=== PATIENT | male | born 1935 | race African-American/Black ===

== ENCOUNTER 2018-09-22 10:22 | Inpatient (IN) | payer SELFPAY ==
[~2018-09-22] VITALS: Ht 193 cm; Wt 122.7 kg
[2018-09-22] MEDS ORDERED: ASPI-630 PO (10:47)
[2018-09-22] MEDS ORDERED: LOSA-73 PO (10:47)
--- NOTE | 2018-09-22 10:49 | PHYS DOC ---
Adult General Chief Complaint Chief Complaint: NEURO SYMPTOMS/DEFICITS HPI HPI Patient is a 83 year old male presented to ER today for evaluation of chest pain and left-sided numbness intermittently with dizziness for about 3 weeks. He went to see his doctor 2 weeks ago, found that he had high blood pressure, he was put on high blood pressure medication. He denies any history of coronary artery disease, no history high cholesterol, no history of diabetic. He said this morning he woke up with the same symptoms so he called his doctor who told to come here for evaluation. he denies any memory problem, no trouble talking, no blurry vision. Review of Systems Review of Systems Constitutional: Denies fever or chills [] Eyes: Denies change in visual acuity, redness, or eye pain [] HENT: Denies nasal congestion or sore throat [] Respiratory: Denies cough or shortness of breath [] Cardiovascular: No additional information not addressed in HPI [] GI: Denies abdominal pain, nausea, vomiting, bloody stools or diarrhea [] : Denies dysuria or hematuria [] Musculoskeletal: Denies back pain or joint pain [] Integument: Denies rash or skin lesions [] Neurologic: Denies headache, POSITIVE FOR LEFT SIDE NUMBNESS AND TINGLING SENSATION. Endocrine: Denies polyuria or polydipsia [] All other systems were reviewed and found to be within normal limits, except as documented in this note. Current Medications Current Medications Current Medications Medications (Trade) Dose Ordered Sig/Stacy Start Time Stop Time Status Last Admin Dose Admin Aspirin (Armand Aspirin) 325 mg 1X ONCE 09/22/18 12:45 09/22/18 12:47 DC 09/22/18 13:01 325 MG Allergies Allergies Allergies Coded Allergies Type Severity Reaction Last Updated Verified No Known Drug Allergies 09/22/18 No Physical Exam Physical Exam Constitutional: Well developed, well nourished, no acute distress, non-toxic appearance. [] HENT: Normocephalic, atraumatic, bilateral external ears normal, oropharynx moist, no oral exudates, nose normal. [] Eyes: PERRLA, EOMI, conjunctiva normal, no discharge. [] Neck: Normal range of motion, no tenderness, supple, no stridor. [] Cardiovascular:Heart rate regular rhythm, no murmur [] Lungs & Thorax: Bilateral breath sounds clear to auscultation [] Abdomen: Bowel sounds normal, soft, no tenderness, no masses, no pulsatile craig s. [] Skin: Warm, dry, no erythema, no rash. [] Back: No tenderness, no CVA tenderness. [] Extremities: No tenderness, no cyanosis, no clubbing, ROM intact, no edema. [] Neurologic: Alert and oriented X 3, normal motor function, normal sensory function, no focal deficits noted. [] Psychologic: Affect normal, judgement normal, mood normal. [] Current Patient Data Vital Signs Vital Signs Date Time Temp Pulse Resp B/P (MAP) Pulse Ox O2 Delivery O2 Flow Rate FiO2 09/22/18 12:05 61 20 09/22/18 11:35 98 09/22/18 10:37 98.2 182/89 (120) Room Air 98.2 Lab Values Laboratory Tests Test 09/22/18 10:58 09/22/18 11:26 09/22/18 12:20 White Blood Count 3.6 x10^3/uL (4.0-11.0) L Red Blood Count 6.24 x10^6/uL (4.30-5.70) H Hemoglobin 14.6 g/dL (13.0-17.5) Hematocrit 45.0 % (39.0-53.0) Mean Corpuscular Volume 72 fL (79-100) L Mean Corpuscular Hemoglobin 23 pg (25-35) L Mean Corpuscular Hemoglobin Concent 33 g/dL (31-37) Red Cell Distribution Width 15.0 % (11.5-14.5) H Platelet Count 69 x10^3/uL (140-400) L Neutrophils (%) (Auto) 47 % (31-73) Lymphocytes (%) (Auto) 40 % (24-48) Monocytes (%) (Auto) 11 % (0-9) H Eosinophils (%) (Auto) 2 % (0-3) Basophils (%) (Auto) 1 % (0-3) Neutrophils # (Auto) 1.7 x10^3uL (1.8-7.7) L Lymphocytes # (Auto) 1.4 x10^3/uL (1.0-4.8) Monocytes # (Auto) 0.4 x10^3/uL (0.0-1.1) Eosinophils # (Auto) 0.1 x10^3/uL (0.0-0.7) Basophils # (Auto) 0.0 x10^3/uL (0.0-0.2) Platelet Estimate Decreased (ADEQUATE) Large Platelets Present Anisocytosis Slight Creatine Kinase 381 U/L (39-308) H Creatine Kinase MB (Mass) 3.2 ng/mL (0.0-3.6) Creatine Kinase MB Relative Index 0.8 % (0-4) Troponin I Quantitative < 0.017 ng/mL (0.000-0.055) YR-Umq-B-Type Natriuretic Peptide 187 pg/mL (0-449) Prothrombin Time 13.5 SEC (11.7-14.0) Prothrombin Time INR 1.1 (0.8-1.1) PTT 31 SEC (24-38) Sodium Level 139 mmol/L (136-145) Potassium Level 4.6 mmol/L (3.5-5.1) Chloride Level 103 mmol/L (98-107) Carbon Dioxide Level 26 mmol/L (21-32) Anion Gap 10 (6-14) Blood Urea Nitrogen 16 mg/dL (8-26) Creatinine 1.1 mg/dL (0.7-1.3) Estimated GFR (Cockcroft-Gault) 77.7 BUN/Creatinine Ratio 15 (6-20) Glucose Level 115 mg/dL (70-99) H Calcium Level 8.8 mg/dL (8.5-10.1) Magnesium Level 2.3 mg/dL (1.8-2.4) Total Bilirubin 0.4 mg/dL (0.2-1.0) Aspartate Amino Transferase (AST) 34 U/L (15-37) Alanine Aminotransferase (ALT) 67 U/L (16-63) H Alkaline Phosphatase 87 U/L (46-116) Total Protein 7.8 g/dL (6.4-8.2) Albumin 4.0 g/dL (3.4-5.0) Albumin/Globulin Ratio 1.1 (1.0-1.7) Urine Collection Type Unknown Urine Color Yellow Urine Clarity Clear Urine pH 7.0 Urine Specific [place] 1.010 Urine Protein Negative mg/dL (NEG-TRACE) Urine Glucose (UA) Negative mg/dL (NEG) Urine Ketones (Stick) Negative mg/dL (NEG) Urine Blood Negative (NEG) Urine Nitrite Negative (NEG) Urine Bilirubin Negative (NEG) Urine Urobilinogen Dipstick 0.2 mg/dL (0.2 mg/dL) Urine Leukocyte Esterase Negative (NEG) Urine RBC Occ /HPF (0-2) Urine WBC Occ /HPF (0-4) Urine Bacteria 0 /HPF (0-FEW) Urine Mucus Slight /LPF Laboratory Tests 09/22/18 10:58 Laboratory Tests 09/22/18 11:26 EKG EKG EKG was read by this physician at 1042, rate of 70 bpm, no stemi. NSR.[] Radiology/Procedures Radiology/Procedures [][facility] [address] [place] [address] IMAGING REPORT Signed PATIENT: JOSE GOOD ACCOUNT: [id number] : 1935 LOCATION: ER AGE: 83 SEX: M EXAM STATUS: REG ER ORD. PHYSICIAN: MAYI GILBERT DO REASON: LEFT SIDE WEAKNESS PROCEDURE: CT HEAD WO CONTRAST EXAM: CT Head without IV contrast CLINICAL HISTORY: Left-sided weakness COMPARISON: None. TECHNIQUE: Routine CT of the head without contrast. Soft tissues and bone windows were reviewed. PQRS compliance statement - One or more of the following individualized dose reduction techniques were utilized for this study: 1. Automated exposure control 2. Adjustment of the mA and/or kV according to patient size 3. Use of iterative reconstruction technique FINDINGS: There is no evidence of hemorrhage, mass or extra-axial fluid collection. Subcortical and periventricular foci of hypoattenuation may be seen with chronic small vessel disease. There is no mass effect or shift of the intracranial structures. The ventricles, basilar cisterns and cortical sulci are normal in size and configuration for the patients age. The cerebellum and brainstem are unremarkable. The calvarium demonstrates no evidence of fracture or focal lesion. There is normal aeration of the visualized paranasal sinuses and mastoid air cells. The visualized portions of the orbits are normal. Atherosclerotic calcifications of the intracranial internal carotid and vertebral arteries is seen. IMPRESSION: 1. No evidence for acute intracranial process. 2. Changes of chronic small vessel disease. Electronically signed by: Ashutosh De Leon MD (09/22/2018 11:06 AM) [facility] DICTATED and SIGNED BY: ASHUTOSH DE LEON MD DATE: 09/22/18 1103 Course & Med Decision Making Course & Med Decision Making Pertinent Labs and Imaging studies reviewed. (See chart for details) [] Dragon Disclaimer Dragon Disclaimer This electronic medical record was generated, in whole or in part, using a voice recognition dictation system. Departure Departure Impression: Primary Impression: Chest pain Additional Impression: Numbness on left side Disposition: 09 ADMITTED INPATIENT Admitting Physician: Figueroa Kern Condition: STABLE Referrals: ALIX CHRISTIANSEN (PCP) Problem Qualifiers MAYI GILBERT DO September 22, 2018 10:49
--- NOTE | 2018-09-22 11:00 | EKG ---
[facility] [address] [place] [address] Test Date: 2018-09-22 Test Time: 10:39:46 Pat Name: JOSE GOOD Department: Room: Gender: M Sample Puller: : 1935 Requested By: MAYI GILBERT Order Number: [id number] Reading MD: Measurements Intervals [place] Rate: 70 P: 90 VT: 206 QRS: 40 QRSD: 100 T: 26 QT: 388 QTc: 422 Interpretive Statements SINUS RHYTHM NORMAL ECG RI6.01 Unconfirmed report No previous ECG available for comparison
--- NOTE | 2018-09-22 11:09 | RAD ---
EXAM: CT Head without IV contrast CLINICAL HISTORY: Left-sided weakness COMPARISON: None. TECHNIQUE: Routine CT of the head without contrast. Soft tissues and bone windows were reviewed. PQRS compliance statement - One or more of the following individualized dose reduction techniques were utilized for this study: 1. Automated exposure control 2. Adjustment of the mA and/or kV according to patient size 3. Use of iterative reconstruction technique FINDINGS: There is no evidence of hemorrhage, mass or extra-axial fluid collection. Subcortical and periventricular foci of hypoattenuation may be seen with chronic small vessel disease. There is no mass effect or shift of the intracranial structures. The ventricles, basilar cisterns and cortical sulci are normal in size and configuration for the patients age. The cerebellum and brainstem are unremarkable. The calvarium demonstrates no evidence of fracture or focal lesion. There is normal aeration of the visualized paranasal sinuses and mastoid air cells. The visualized portions of the orbits are normal. Atherosclerotic calcifications of the intracranial internal carotid and vertebral arteries is seen. IMPRESSION: 1. No evidence for acute intracranial process. 2. Changes of chronic small vessel disease. Electronically signed by: Ashutosh Hough MD (09/22/2018 11:06 AM) [facility] [place]
--- NOTE | 2018-09-22 11:14 | RAD ---
PORTABLE CHEST 1V History: Chest pain, left weakness for 2 weeks Comparison: None. Findings: Single view of the chest is submitted. There is atherosclerotic calcification near aortic arch. There is some mild hazy left base airspace opacity, minimally of the medial right lung base. There is no significant pleural fluid or pneumothorax. Cardiac silhouette is considered within normal limits given technique. There is widening of the acromiohumeral clavicular joints bilaterally. Impression: 1. There is some hazy bibasilar airspace opacity greater on the left may be due to edema or mild infiltrate. Electronically signed by: Iglesia Knox MD (09/22/2018 11:11 AM) [facility]
[2018-09-22 11:28] LABS: BASO % 1 % (0-3); EOS # 0.1 x10^3/uL (0.0-0.7); EOS % 2 % (0-3); HEMOGLOBIN 14.6 g/dL (13.0-17.5); LYMPH # 1.4 x10^3/uL (1.0-4.8); LYMPH % 40 % (24-48); MEAN CORPUSCULAR HEMOGLOBIN 23 pg (25-35); MEAN CORPUSCULAR HGB CONC 33 g/dL (31-37); MEAN CORPUSCULAR VOLUME 72 fL (79-100); MONO # 0.4 x10^3/uL (0.0-1.1); MONO % 11 % (0-9); NEUT # 1.7 x10^3uL (1.8-7.7); NEUT % 47 % (31-73); PLATELET COUNT 69 x10^3/uL (140-400); RED BLOOD COUNT 6.24 x10^6/uL (4.30-5.70); WHITE BLOOD COUNT 3.6 x10^3/uL (4.0-11.0)
[2018-09-22 11:51] LABS: PROTHROMBIN TIME PATIENT 13.5 SEC (11.7-14.0)
[2018-09-22 11:52] LABS: PLT ESTIMATE DECREASED (ADEQUATE)
[2018-09-22 11:53] LABS: ANISOCYTOSIS SLIGHT
[2018-09-22 11:57] LABS: CALCIUM 8.8 mg/dL (8.5-10.1); CREATININE 1.1 mg/dL (0.7-1.3); GFR 77.7; POTASSIUM 4.6 mmol/L (3.5-5.1)
[2018-09-22 12:03] LABS: ALBUMIN/GLOBULIN RATIO 1.1 (1.0-1.7); MAGNESIUM 2.3 mg/dL (1.8-2.4); TOTAL BILIRUBIN 0.4 mg/dL (0.2-1.0); TOTAL PROTEIN 7.8 g/dL (6.4-8.2)
[2018-09-22 12:29] LABS: BILIRUBIN,URINE NEGATIVE (NEG); CLARITY,URINE CLEAR; COLOR,URINE YELLOW; NITRITE,URINE NEGATIVE (NEG); PROTEIN,URINE NEGATIVE (NEG-TRACE); UROBILINOGEN,URINE 0.2 mg/dL (0.2 mg/dL)
[2018-09-22] MEDS ORDERED: ASPIRIN 325 MG TABLET PO ONE (12:45)
[2018-09-22 12:49] LABS: BACTERIA,URINE 0 /HPF (0-FEW); RBC,URINE OCC /HPF (0-2); WBC,URINE OCC /HPF (0-4)
--- NOTE | 2018-09-22 13:24 | PDOC1 ---
History and Physical Date of Admission Date of Admission DATE: 09/22/18 TIME: 13:24 Identification/Chief Complaint Chief Complaint seen in er 83 year old male presented to ER today for evaluation of chest pain and left-sided numbness intermittently with dizziness for about 3 weeks. He went to see his doctor 2 weeks ago, found that he had high blood pressure, he was put on high blood pressure medication. He denies any history of coronary artery disease, no history high cholesterol, no history of diabetic. He said this morning he woke up with the same symptoms Past Medical History Cardiovascular: HTN Family History Family History: Hypertension Social History Smoke: No ALCOHOL: none Drugs: None Current Problem List Problem List Problems Medical Problems: (1) Chest pain Status: Acute (2) Numbness on left side Status: Acute Current Medications Current Medications Current Medications Aspirin (Armand Aspirin) 325 mg 1X ONCE PO Last administered on 09/22/18at 13:01; Start 09/22/18 at 12:45; Stop 09/22/18 at 12:47; Status DC Active Scripts Active Reported Aspirin 81 Mg Tab.chew 1 Tab PO DAILY Losartan Potassium 50 Mg Tablet 50 Mg PO DAILY Allergies Allergies: Coded Allergies: No Known Drug Allergies (Unverified , 09/22/18) ROS Review of System Review of Systems Review of Systems Constitutional: Denies fever or chills [] Eyes: Denies change in visual acuity, redness, or eye pain [] HENT: Denies nasal congestion or sore throat [] Respiratory: Denies cough or shortness of breath [] Cardiovascular: No additional information not addressed in HPI [] GI: Denies abdominal pain, nausea, vomiting, bloody stools or diarrhea [] : Denies dysuria or hematuria [] Musculoskeletal: Denies back pain or joint pain [] Integument: Denies rash or skin lesions [] Neurologic: Denies headache, POSITIVE FOR LEFT SIDE NUMBNESS AND TINGLING SENSATION. Endocrine: Denies polyuria or polydipsia [] 14 pt systems were reviewed and found to be within normal limits, except as documented Physical Exam Physical Exam Physical Exam Physical Exam Constitutional: Well developed, well nourished, no acute distress, non-toxic appearance. [] HENT: Normocephalic, atraumatic, bilateral external ears normal, oropharynx moist, no oral exudates, nose normal. [] Eyes: PERRLA, EOMI, conjunctiva normal, no discharge. [] Neck: Normal range of motion, no tenderness, supple, no stridor. [] Cardiovascular:Heart rate regular rhythm, no murmur [] Lungs & Thorax: Bilateral breath sounds clear to auscultation [] Abdomen: Bowel sounds normal, soft, no tenderness, no masses, no pulsatile masses. [] Skin: Warm, dry, no erythema, no rash. [] Back: No tenderness, no CVA tenderness. [] Extremities: No tenderness, no cyanosis, no clubbing, ROM intact, no edema. [] Neurologic: Alert and oriented X 3, normal motor function, normal sensory function, no focal deficits noted. [] Psychologic: Affect normal, judgement normal, mood normal. [] General: Alert, Oriented X3, Cooperative Neuro: Normal speech, Cranial nerves 3-12 NL Psych/Mental Status: Mental status NL, Mood NL Vitals Vitals Vital Signs Date Time Temp Pulse Resp B/P (MAP) Pulse Ox O2 Delivery O2 Flow Rate FiO2 09/22/18 12:05 61 20 09/22/18 11:35 98 09/22/18 10:37 98.2 182/89 (120) Room Air 98.2 Labs Labs Laboratory Tests Test 09/22/18 10:58 09/22/18 11:26 09/22/18 12:20 White Blood Count 3.6 x10^3/uL (4.0-11.0) Red Blood Count 6.24 x10^6/uL (4.30-5.70) Hemoglobin 14.6 g/dL (13.0-17.5) Hematocrit 45.0 % (39.0-53.0) Mean Corpuscular Volume 72 fL (79-100) Mean Corpuscular Hemoglobin 23 pg (25-35) Mean Corpuscular Hemoglobin Concent 33 g/dL (31-37) Red Cell Distribution Width 15.0 % (11.5-14.5) Platelet Count 69 x10^3/uL (140-400) Neutrophils (%) (Auto) 47 % (31-73) Lymphocytes (%) (Auto) 40 % (24-48) Monocytes (%) (Auto) 11 % (0-9) Eosinophils (%) (Auto) 2 % (0-3) Basophils (%) (Auto) 1 % (0-3) Neutrophils # (Auto) 1.7 x10^3uL (1.8-7.7) Lymphocytes # (Auto) 1.4 x10^3/uL (1.0-4.8) Monocytes # (Auto) 0.4 x10^3/uL (0.0-1.1) Eosinophils # (Auto) 0.1 x10^3/uL (0.0-0.7) Basophils # (Auto) 0.0 x10^3/uL (0.0-0.2) Platelet Estimate Decreased (ADEQUATE) Large Platelets Present Anisocytosis Slight Creatine Kinase 381 U/L (39-308) Creatine Kinase MB (Mass) 3.2 ng/mL (0.0-3.6) Creatine Kinase MB Relative Index 0.8 % (0-4) Troponin I Quantitative < 0.017 ng/mL (0.000-0.055) WV-Gzg-N-Type Natriuretic Peptide 187 pg/mL (0-449) Prothrombin Time 13.5 SEC (11.7-14.0) Prothromb Time International Ratio 1.1 (0.8-1.1) Activated Partial Thromboplast Time 31 SEC (24-38) Sodium Level 139 mmol/L (136-145) Potassium Level 4.6 mmol/L (3.5-5.1) Chloride Level 103 mmol/L (98-107) Carbon Dioxide Level 26 mmol/L (21-32) Anion Gap 10 (6-14) Blood Urea Nitrogen 16 mg/dL (8-26) Creatinine 1.1 mg/dL (0.7-1.3) Estimated GFR (Cockcroft-Gault) 77.7 BUN/Creatinine Ratio 15 (6-20) Glucose Level 115 mg/dL (70-99) Calcium Level 8.8 mg/dL (8.5-10.1) Magnesium Level 2.3 mg/dL (1.8-2.4) Total Bilirubin 0.4 mg/dL (0.2-1.0) Aspartate Amino Transf (AST/SGOT) 34 U/L (15-37) Alanine Aminotransferase (ALT/SGPT) 67 U/L (16-63) Alkaline Phosphatase 87 U/L (46-116) Total Protein 7.8 g/dL (6.4-8.2) Albumin 4.0 g/dL (3.4-5.0) Albumin/Globulin Ratio 1.1 (1.0-1.7) Urine Collection Type Unknown Urine Color Yellow Urine Clarity Clear Urine pH 7.0 Urine Specific [place] 1.010 Urine Protein Negative mg/dL (NEG-TRACE) Urine Glucose (UA) Negative mg/dL (NEG) Urine Ketones (Stick) Negative mg/dL (NEG) Urine Blood Negative (NEG) Urine Nitrite Negative (NEG) Urine Bilirubin Negative (NEG) Urine Urobilinogen Dipstick 0.2 mg/dL (0.2 mg/dL) Urine Leukocyte Esterase Negative (NEG) Urine RBC Occ /HPF (0-2) Urine WBC Occ /HPF (0-4) Urine Bacteria 0 /HPF (0-FEW) Urine Mucus Slight /LPF Laboratory Tests Test 09/22/18 10:58 09/22/18 11:26 09/22/18 12:20 White Blood Count 3.6 x10^3/uL (4.0-11.0) Red Blood Count 6.24 x10^6/uL (4.30-5.70) Hemoglobin 14.6 g/dL (13.0-17.5) Hematocrit 45.0 % (39.0-53.0) Mean Corpuscular Volume 72 fL (79-100) Mean Corpuscular Hemoglobin 23 pg (25-35) Mean Corpuscular Hemoglobin Concent 33 g/dL (31-37) Red Cell Distribution Width 15.0 % (11.5-14.5) Platelet Count 69 x10^3/uL (140-400) Neutrophils (%) (Auto) 47 % (31-73) Lymphocytes (%) (Auto) 40 % (24-48) Monocytes (%) (Auto) 11 % (0-9) Eosinophils (%) (Auto) 2 % (0-3) Basophils (%) (Auto) 1 % (0-3) Neutrophils # (Auto) 1.7 x10^3uL (1.8-7.7) Lymphocytes # (Auto) 1.4 x10^3/uL (1.0-4.8) Monocytes # (Auto) 0.4 x10^3/uL (0.0-1.1) Eosinophils # (Auto) 0.1 x10^3/uL (0.0-0.7) Basophils # (Auto) 0.0 x10^3/uL (0.0-0.2) Platelet Estimate Decreased (ADEQUATE) Large Platelets Present Anisocytosis Slight Creatine Kinase 381 U/L (39-308) Creatine Kinase MB (Mass) 3.2 ng/mL (0.0-3.6) Creatine Kinase MB Relative Index 0.8 % (0-4) Troponin I Quantitative < 0.017 ng/mL (0.000-0.055) JK-Yzj-B-Type Natriuretic Peptide 187 pg/mL (0-449) Prothrombin Time 13.5 SEC (11.7-14.0) Prothromb Time International Ratio 1.1 (0.8-1.1) Activated Partial Thromboplast Time 31 SEC (24-38) Sodium Level 139 mmol/L (136-145) Potassium Level 4.6 mmol/L (3.5-5.1) Chloride Level 103 mmol/L (98-107) Carbon Dioxide Level 26 mmol/L (21-32) Anion Gap 10 (6-14) Blood Urea Nitrogen 16 mg/dL (8-26) Creatinine 1.1 mg/dL (0.7-1.3) Estimated GFR (Cockcroft-Gault) 77.7 BUN/Creatinine Ratio 15 (6-20) Glucose Level 115 mg/dL (70-99) Calcium Level 8.8 mg/dL (8.5-10.1) Magnesium Level 2.3 mg/dL (1.8-2.4) Total Bilirubin 0.4 mg/dL (0.2-1.0) Aspartate Amino Transf (AST/SGOT) 34 U/L (15-37) Alanine Aminotransferase (ALT/SGPT) 67 U/L (16-63) Alkaline Phosphatase 87 U/L (46-116) Total Protein 7.8 g/dL (6.4-8.2) Albumin 4.0 g/dL (3.4-5.0) Albumin/Globulin Ratio 1.1 (1.0-1.7) Urine Collection Type Unknown Urine Color Yellow Urine Clarity Clear Urine pH 7.0 Urine Specific [place] 1.010 Urine Protein Negative mg/dL (NEG-TRACE) Urine Glucose (UA) Negative mg/dL (NEG) Urine Ketones (Stick) Negative mg/dL (NEG) Urine Blood Negative (NEG) Urine Nitrite Negative (NEG) Urine Bilirubin Negative (NEG) Urine Urobilinogen Dipstick 0.2 mg/dL (0.2 mg/dL) Urine Leukocyte Esterase Negative (NEG) Urine RBC Occ /HPF (0-2) Urine WBC Occ /HPF (0-4) Urine Bacteria 0 /HPF (0-FEW) Urine Mucus Slight /LPF Images Images PORTABLE CHEST 1V History: Chest pain, left weakness for 2 weeks Comparison: None. Findings: Single view of the chest is submitted. There is atherosclerotic calcification near aortic arch. There is some mild hazy left base airspace opacity, minimally of the medial right lung base. There is no significant pleural fluid or pneumothorax. Cardiac silhouette is considered within normal limits given technique. There is widening of the acromiohumeral clavicular joints bilaterally. Impression: 1. There is some hazy bibasilar airspace opacity greater on the left may be due to edema or mild infiltrate. Electronically signed by: Iglesia Knox MD (09/22/2018 11:11 AM) [facility] CLINICAL HISTORY: Left-sided weakness COMPARISON: None. TECHNIQUE: Routine CT of the head without contrast. Soft tissues and bone windows were reviewed. PQRS compliance statement - One or more of the following individualized dose reduction techniques were utilized for this study: 1. Automated exposure control 2. Adjustment of the mA and/or kV according to patient size 3. Use of iterative reconstruction technique FINDINGS: There is no evidence of hemorrhage, mass or extra-axial fluid collection. Subcortical and periventricular foci of hypoattenuation may be seen with chronic small vessel disease. There is no mass effect or shift of the intracranial structures. The ventricles, basilar cisterns and cortical sulci are normal in size and configuration for the patients age. The cerebellum and brainstem are unremarkable. The calvarium demonstrates no evidence of fracture or focal lesion. There is normal aeration of the visualized paranasal sinuses and mastoid air cells. The visualized portions of the orbits are normal. Atherosclerotic calcifications of the intracranial internal carotid and vertebral arteries is seen. IMPRESSION: 1. No evidence for acute intracranial process. 2. Changes of chronic small vessel disease. Electronically signed by: Ashutosh Hough MD (09/22/2018 11:06 AM) [facility] VTE Prophylaxis Ordered VTE Prophylaxis Devices: Yes VTE Pharmacological Prophylaxi: Yes Assessment/Plan Assessment/Plan IMPRESSION: 1. No evidence for acute intracranial process. 2. Changes of chronic small vessel disease. 3. CHEST PAIN 4. Left sided weakness/ parasthesia 5. hazy bibasilar airspace opacity greater on the left may be due to edema or mild infiltrate. plan admit cvc bed cardiology consult neurology consult echo neurochecks q 4 hrs flp 57 min pt exam, chart review, > 50% of time spent with exam, chart review, pt care coordination PITA RICO MD September 22, 2018 13:24
[2018-09-22 14:52] VITALS: BP 188/93
--- NOTE | 2018-09-22 15:20 | PDOC2 ---
BRENNAN ELLER ACQUISITIONS EDITOR 09/22/18 1520: CARDIAC CONSULT DATE OF CONSULT Date of Consult DATE: 09/22/18 TIME: 15:17 REASON FOR CONSULT Reason for Consult: Chest pain REFERRING PHYSICIAN Referring Physician: Cedrick SOURCE Source: Chart review, Patient HISTORY OF PRESENT ILLNESS HISTORY OF PRESENT ILLNESS This is a pleasant 83 yo male admitted for complains of left side numbness and tingling. He has not seen a doctor for a very longtime. He was just recently started on losartan. In the last 2-3 weeks he has been having intermittent numbness and tingling to his left arm and left leg. Denies any chest pain but finally this morning he felt thumping discomfort to his left chest hemal only lasted for about 5 sec. No SOA, visual or auditory disturbances. He does stair climbing daily as his exercise does it fro about 20 minutes without CP or ESPINOZA. No associated nausea, dizziness with his left arm discomfort. No known hx of CAD, VTE or arrhythmias. No tobacco, ETOH nor any recreational drugs. Denies any leg pain with exercise nor back pain or leg swelling. PAST MEDICAL HISTORY Past Medical History HTN otherwise no pertinent history PAST SURGICAL HISTORY Past Surgical History: No pertinent history FAMILY HISTORY Family History noncontributory to CV SOCIAL HISTORY Smoke: No ALCOHOL: none Drugs: None Lives: Alone CURRENT MEDICATIONS CURRENT MEDICATIONS Current Medications Medications (Trade) Dose Ordered Sig/Stacy Route PRN Reason Start Time Stop Time Status Last Admin Dose Admin Aspirin (Armand Aspirin) 325 mg 1X ONCE PO 09/22/18 12:45 09/22/18 12:47 DC 09/22/18 13:01 ALLERGIES ALLERGIES: Coded Allergies: No Known Drug Allergies (Unverified , 09/22/18) ROS Review of System 14 point ROS evaluated with pertinent positives noted per HPI PHYSICAL EXAM General: Alert, Oriented X3, Cooperative, No acute distress HEENT: Atraumatic, Mucous membr. moist/pink Lungs: Clear to auscultation, Normal air movement Heart: Regular rate (SR), Normal S1, Normal S2, No murmurs Abdomen: Soft, No tenderness Extremities: No cyanosis, No edema Skin: No breakdown, No significant lesion Neuro: Normal speech, Sensation intact Psych/Mental Status: Mental status NL, Mood NL MUSCULOSKELETAL: Osteoarthritic changes both hands VITALS VITALS Vital Signs Date Time Temp Pulse Resp B/P (MAP) Pulse Ox O2 Delivery O2 Flow Rate FiO2 09/22/18 14:52 97.4 68 18 188/93 (124) 93 Room Air 97.4 LABS Lab: Laboratory Tests Test 09/22/18 10:58 09/22/18 11:26 09/22/18 12:20 White Blood Count 3.6 x10^3/uL (4.0-11.0) Red Blood Count 6.24 x10^6/uL (4.30-5.70) Hemoglobin 14.6 g/dL (13.0-17.5) Hematocrit 45.0 % (39.0-53.0) Mean Corpuscular Volume 72 fL (79-100) Mean Corpuscular Hemoglobin 23 pg (25-35) Mean Corpuscular Hemoglobin Concent 33 g/dL (31-37) Red Cell Distribution Width 15.0 % (11.5-14.5) Platelet Count 69 x10^3/uL (140-400) Neutrophils (%) (Auto) 47 % (31-73) Lymphocytes (%) (Auto) 40 % (24-48) Monocytes (%) (Auto) 11 % (0-9) Eosinophils (%) (Auto) 2 % (0-3) Basophils (%) (Auto) 1 % (0-3) Neutrophils # (Auto) 1.7 x10^3uL (1.8-7.7) Lymphocytes # (Auto) 1.4 x10^3/uL (1.0-4.8) Monocytes # (Auto) 0.4 x10^3/uL (0.0-1.1) Eosinophils # (Auto) 0.1 x10^3/uL (0.0-0.7) Basophils # (Auto) 0.0 x10^3/uL (0.0-0.2) Platelet Estimate Decreased (ADEQUATE) Large Platelets Present Anisocytosis Slight Creatine Kinase 381 U/L (39-308) Creatine Kinase MB (Mass) 3.2 ng/mL (0.0-3.6) Creatine Kinase MB Relative Index 0.8 % (0-4) Troponin I Quantitative < 0.017 ng/mL (0.000-0.055) PZ-Fzy-X-Type Natriuretic Peptide 187 pg/mL (0-449) Prothrombin Time 13.5 SEC (11.7-14.0) Prothromb Time International Ratio 1.1 (0.8-1.1) Activated Partial Thromboplast Time 31 SEC (24-38) Sodium Level 139 mmol/L (136-145) Potassium Level 4.6 mmol/L (3.5-5.1) Chloride Level 103 mmol/L (98-107) Carbon Dioxide Level 26 mmol/L (21-32) Anion Gap 10 (6-14) Blood Urea Nitrogen 16 mg/dL (8-26) Creatinine 1.1 mg/dL (0.7-1.3) Estimated GFR (Cockcroft-Gault) 77.7 BUN/Creatinine Ratio 15 (6-20) Glucose Level 115 mg/dL (70-99) Calcium Level 8.8 mg/dL (8.5-10.1) Magnesium Level 2.3 mg/dL (1.8-2.4) Total Bilirubin 0.4 mg/dL (0.2-1.0) Aspartate Amino Transf (AST/SGOT) 34 U/L (15-37) Alanine Aminotransferase (ALT/SGPT) 67 U/L (16-63) Alkaline Phosphatase 87 U/L (46-116) Total Protein 7.8 g/dL (6.4-8.2) Albumin 4.0 g/dL (3.4-5.0) Albumin/Globulin Ratio 1.1 (1.0-1.7) Urine Collection Type Unknown Urine Color Yellow Urine Clarity Clear Urine pH 7.0 Urine Specific [place] 1.010 Urine Protein Negative mg/dL (NEG-TRACE) Urine Glucose (UA) Negative mg/dL (NEG) Urine Ketones (Stick) Negative mg/dL (NEG) Urine Blood Negative (NEG) Urine Nitrite Negative (NEG) Urine Bilirubin Negative (NEG) Urine Urobilinogen Dipstick 0.2 mg/dL (0.2 mg/dL) Urine Leukocyte Esterase Negative (NEG) Urine RBC Occ /HPF (0-2) Urine WBC Occ /HPF (0-4) Urine Bacteria 0 /HPF (0-FEW) Urine Mucus Slight /LPF ASSESSMENT/PLAN ASSESSMENT/PLAN 1. Leukopenia/polycythemia/thrombocytopenia/microcytosis: defer to PCP 2. Atypical CP: suspect noncardiac 3. Left side arm/leg paresthesia: neurology consulted. 4. HTN: labile Recommendation 1. TTE, lipids, TSH 2. Restart home losartan. Norvasc x1. Labetolol IV PRN 3. Neurology consult. 4. ASA was given in ED. RIC ANDINO MD 09/22/182053: CARDIAC CONSULT ASSESSMENT/PLAN ASSESSMENT/PLAN Patient seen and examined. Agree with FIBER WORKER's assessment and plan. CP very atypical - OK ruled out Agree with 2D echo to assess LVF and rule out WMA Neurology consulted for left sided paresthesias Thank you for your consultation BRENNAN ELLER APRN September 22, 2018 15:20 RIC ANDINO MD September 22, 2018 20:54
[2018-09-22] MEDS ORDERED: LABETALOL 20 MG/4 ML DISP.SYRIN. IVP PRN (16:00)
[2018-09-22] MEDS ORDERED: amLODIPine BESYLATE 5 MG TABLET PO ONE (16:00)
--- NOTE | 2018-09-22 16:21 | NUR ---
Received pt as an admit to room 252. Arrived at 1440 per [facility]. No distress noted. Tele placed on admission. See admit assessment.
[2018-09-22 17:08] VITALS: BP 192/93
[2018-09-22 17:27] VITALS: BP 160/94
--- NOTE | 2018-09-22 18:27 | PDOC2 ---
NEUROLOGY CONSULT Date of Admission Date of Admission DATE: 09/22/18 TIME: 18:16 Reason for Consult Reason for Consult: IMPRESSION: Left side numbness and weakness 3 weeks ago, recurred today on 09/22/18. Chest pain. Near hypertensive urgency, SBP 193 mmHg. HTN. Lung infiltrate or edema. Obesity. RECOMMENDATIONS/PLAN: BP control. ASA 325 mg daily. Lab: see orders. Brain MRI w/o contrast. Consulted Cardiology. Discussed with his at bedside on 09/22/18. HISTORY OF THE PRESENT ILLNESS: This is an 83-y-old AA male patient had symptoms of left side face, UE and LE numbness and weakness about 3 weeks ago. He called his PCP and was told to take ASA. His symptoms resolved then. He then was seen as outpatient base and was told had elevated BP and he was treated. He then had similar symptoms recur on 09/22/18 described as numbness and tingling in his left proximal UE and shoulder area and pain in his chest as well. He took another dose of ASA and felt better. He eventually came to [facility] seeking medical attention. His SBP was 193 mmHg. PAST MEDICAL HISTORY HTN otherwise no pertinent history PAST SURGICAL HISTORY No pertinent history FAMILY HISTORY Noncontributory. ALLERGY: NKDA MEDICATIONS: Refer to [facility] SOCIAL HISTORY: Lives at home. Denies current smoking, drinking, and illicit drug use. REVIEW OF SYSTEMS: Constitutional: Obese. Head: No traumatic brain or head injury. Skin: No edema, or rash. Ear: No infection. Eyes: No vision loss or color blindness. Nose: No bleeding or purulent discharges. Hearing: No hearing decrease. Neck: No injury. Cardiac: HTN. Pulmonary: No COPD. GI: No GI ulcer, GI bleeding. Urinary/genital: No dysuria, incontinence, urinary retention. Endocrinologic:Obesity. Skeletomuscular: No muscular atrophy. Neurological: see HP. Psychiatric: Denies drug use/abuse. Otherwise, not [id number] review of systems. PHYSICAL EXAMINATION: General appearance is in subacute distress. HEENT: Normocephalic and nontraumatic. Eyes, nose, ears, and throat are unremarkable. Neck is supple. No lymphadenopathy. No crepitus. Cardiovascular: S1, S2, regular rate and rhythm. Pulmonary: Clear to auscultation bilaterally. Abdomen: Bowel sounds are positive. Abdomen is soft, nontender, and nondistend ed. Extremities: No rash, lesions, or edema. No restriction of range of motion NEUROLOGICAL EXAMINATION: Alert Oriented to time, place and person. PERRL. EOMI. CN: no focal findings. Muscle tone: within normal. Muscle strength: left side 5- ? DTR: 1-2 Plantar reflex: Flexor response bilaterally Gait: not examined in bed. Sensory exam: no abnormal findings. No cerebellar signs elicited. F-T-N test accurate. Current Medications Current Medications Current Medications Aspirin (Armand Aspirin) 325 mg 1X ONCE PO Last administered on 09/22/18at 13:01; Start 09/22/18 at 12:45; Stop 09/22/18 at 12:47; Status DC Amlodipine Besylate (Norvasc) 5 mg 1X ONCE PO Last administered on 09/22/18at 16:31; Start 09/22/18 at 16:00; Stop 09/22/18 at 16:02; Status DC Labetalol HCl (Normodyne Iv Push) 20 mg PRN Q2HR PRN IVP HYPERTENSION Last administered on 09/22/18at 17:20; Start 09/22/18 at 16:00 Aspirin (Children'S Aspirin) 81 mg DAILY PO ; Start 09/23/18 at 09:00 Losartan Potassium (Cozaar) 50 mg DAILY PO ; Start 09/23/18 at 09:00 Active Scripts Active Reported Aspirin 81 Mg Tab.chew 1 Tab PO DAILY Losartan Potassium 50 Mg Tablet 50 Mg PO DAILY Allergies Allergies: Allergies Coded Allergies Type Severity Reaction Last Updated Verified No Known Drug Allergies 09/22/18 No ROS Review of System The patient denies any associated fevers, chills, headache, ear pain, rhinorrhea, sore throat, stiff neck, productive cough, chest pain, shortness of breath, back or flank pain, abdominal pain, nausea, vomiting, diarrhea, constipation, dysuria, rash, numbness, weakness, tingling, incontinence, difficulty ambulating, or diaphoresis. Physical Exam Physical Exam General: Well developed, well nourished, no acute distress, well appearing HEENT: Pupils equally round and reactive to light, EOMI, no discharge, normal conjunctiva Neck: Supple, no nuchal rigidity, no JVD, trachea midline, no tenderness Cardiac: RRR, no murmurs, no gallops, no rubs Chest/Lungs: CTAB, no wheeze, no rhonchi, no crackles Abdomen: soft, non-distended, no guarding, no peritoneal signs, non-tender Back: No tenderness Extremities: no edema, pulses intact, non-tender,capillary refill <3 sec bilateral upper and lower extremities, Neuro: Alert and oriented x 4, no focal deficits, normal speech Vitals Vitals: Vital Signs Date Time Temp Pulse Resp B/P (MAP) Pulse Ox O2 Delivery O2 Flow Rate FiO2 09/22/18 17:27 60 18 160/94 (116) 09/22/18 15:12 Room Air 09/22/18 14:52 97.4 93 97.4 Labs Labs Laboratory Tests Test 09/22/18 10:58 09/22/18 11:26 09/22/18 12:20 White Blood Count 3.6 x10^3/uL (4.0-11.0) Red Blood Count 6.24 x10^6/uL (4.30-5.70) Hemoglobin 14.6 g/dL (13.0-17.5) Hematocrit 45.0 % (39.0-53.0) Mean Corpuscular Volume 72 fL (79-100) Mean Corpuscular Hemoglobin 23 pg (25-35) Mean Corpuscular Hemoglobin Concent 33 g/dL (31-37) Red Cell Distribution Width 15.0 % (11.5-14.5) Platelet Count 69 x10^3/uL (140-400) Neutrophils (%) (Auto) 47 % (31-73) Lymphocytes (%) (Auto) 40 % (24-48) Monocytes (%) (Auto) 11 % (0-9) Eosinophils (%) (Auto) 2 % (0-3) Basophils (%) (Auto) 1 % (0-3) Neutrophils # (Auto) 1.7 x10^3uL (1.8-7.7) Lymphocytes # (Auto) 1.4 x10^3/uL (1.0-4.8) Monocytes # (Auto) 0.4 x10^3/uL (0.0-1.1) Eosinophils # (Auto) 0.1 x10^3/uL (0.0-0.7) Basophils # (Auto) 0.0 x10^3/uL (0.0-0.2) Platelet Estimate Decreased (ADEQUATE) Large Platelets Present Anisocytosis Slight Creatine Kinase 381 U/L (39-308) Creatine Kinase MB (Mass) 3.2 ng/mL (0.0-3.6) Creatine Kinase MB Relative Index 0.8 % (0-4) Troponin I Quantitative < 0.017 ng/mL (0.000-0.055) JY-Dex-S-Type Natriuretic Peptide 187 pg/mL (0-449) Prothrombin Time 13.5 SEC (11.7-14.0) Prothromb Time International Ratio 1.1 (0.8-1.1) Activated Partial Thromboplast Time 31 SEC (24-38) Sodium Level 139 mmol/L (136-145) Potassium Level 4.6 mmol/L (3.5-5.1) Chloride Level 103 mmol/L (98-107) Carbon Dioxide Level 26 mmol/L (21-32) Anion Gap 10 (6-14) Blood Urea Nitrogen 16 mg/dL (8-26) Creatinine 1.1 mg/dL (0.7-1.3) Estimated GFR (Cockcroft-Gault) 77.7 BUN/Creatinine Ratio 15 (6-20) Glucose Level 115 mg/dL (70-99) Calcium Level 8.8 mg/dL (8.5-10.1) Magnesium Level 2.3 mg/dL (1.8-2.4) Total Bilirubin 0.4 mg/dL (0.2-1.0) Aspartate Amino Transf (AST/SGOT) 34 U/L (15-37) Alanine Aminotransferase (ALT/SGPT) 67 U/L (16-63) Alkaline Phosphatase 87 U/L (46-116) Total Protein 7.8 g/dL (6.4-8.2) Albumin 4.0 g/dL (3.4-5.0) Albumin/Globulin Ratio 1.1 (1.0-1.7) Thyroid Stimulating Hormone (TSH) 1.879 uIU/mL (0.358-3.74) Urine Collection Type Unknown Urine Color Yellow Urine Clarity Clear Urine pH 7.0 Urine Specific [place] 1.010 Urine Protein Negative mg/dL (NEG-TRACE) Urine Glucose (UA) Negative mg/dL (NEG) Urine Ketones (Stick) Negative mg/dL (NEG) Urine Blood Negative (NEG) Urine Nitrite Negative (NEG) Urine Bilirubin Negative (NEG) Urine Urobilinogen Dipstick 0.2 mg/dL (0.2 mg/dL) Urine Leukocyte Esterase Negative (NEG) Urine RBC Occ /HPF (0-2) Urine WBC Occ /HPF (0-4) Urine Bacteria 0 /HPF (0-FEW) Urine Mucus Slight /LPF Laboratory Tests Test 09/22/18 10:58 09/22/18 11:26 09/22/18 12:20 White Blood Count 3.6 x10^3/uL (4.0-11.0) Red Blood Count 6.24 x10^6/uL (4.30-5.70) Hemoglobin 14.6 g/dL (13.0-17.5) Hematocrit 45.0 % (39.0-53.0) Mean Corpuscular Volume 72 fL (79-100) Mean Corpuscular Hemoglobin 23 pg (25-35) Mean Corpuscular Hemoglobin Concent 33 g/dL (31-37) Red Cell Distribution Width 15.0 % (11.5-14.5) Platelet Count 69 x10^3/uL (140-400) Neutrophils (%) (Auto) 47 % (31-73) Lymphocytes (%) (Auto) 40 % (24-48) Monocytes (%) (Auto) 11 % (0-9) Eosinophils (%) (Auto) 2 % (0-3) Basophils (%) (Auto) 1 % (0-3) Neutrophils # (Auto) 1.7 x10^3uL (1.8-7.7) Lymphocytes # (Auto) 1.4 x10^3/uL (1.0-4.8) Monocytes # (Auto) 0.4 x10^3/uL (0.0-1.1) Eosinophils # (Auto) 0.1 x10^3/uL (0.0-0.7) Basophils # (Auto) 0.0 x10^3/uL (0.0-0.2) Platelet Estimate Decreased (ADEQUATE) Large Platelets Present Anisocytosis Slight Creatine Kinase 381 U/L (39-308) Creatine Kinase MB (Mass) 3.2 ng/mL (0.0-3.6) Creatine Kinase MB Relative Index 0.8 % (0-4) Troponin I Quantitative < 0.017 ng/mL (0.000-0.055) GL-Bkt-B-Type Natriuretic Peptide 187 pg/mL (0-449) Prothrombin Time 13.5 SEC (11.7-14.0) Prothromb Time International Ratio 1.1 (0.8-1.1) Activated Partial Thromboplast Time 31 SEC (24-38) Sodium Level 139 mmol/L (136-145) Potassium Level 4.6 mmol/L (3.5-5.1) Chloride Level 103 mmol/L (98-107) Carbon Dioxide Level 26 mmol/L (21-32) Anion Gap 10 (6-14) Blood Urea Nitrogen 16 mg/dL (8-26) Creatinine 1.1 mg/dL (0.7-1.3) Estimated GFR (Cockcroft-Gault) 77.7 BUN/Creatinine Ratio 15 (6-20) Glucose Level 115 mg/dL (70-99) Calcium Level 8.8 mg/dL (8.5-10.1) Magnesium Level 2.3 mg/dL (1.8-2.4) Total Bilirubin 0.4 mg/dL (0.2-1.0) Aspartate Amino Transf (AST/SGOT) 34 U/L (15-37) Alanine Aminotransferase (ALT/SGPT) 67 U/L (16-63) Alkaline Phosphatase 87 U/L (46-116) Total Protein 7.8 g/dL (6.4-8.2) Albumin 4.0 g/dL (3.4-5.0) Albumin/Globulin Ratio 1.1 (1.0-1.7) Thyroid Stimulating Hormone (TSH) 1.879 uIU/mL (0.358-3.74) Urine Collection Type Unknown Urine Color Yellow Urine Clarity Clear Urine pH 7.0 Urine Specific [place] 1.010 Urine Protein Negative mg/dL (NEG-TRACE) Urine Glucose (UA) Negative mg/dL (NEG) Urine Ketones (Stick) Negative mg/dL (NEG) Urine Blood Negative (NEG) Urine Nitrite Negative (NEG) Urine Bilirubin Negative (NEG) Urine Urobilinogen Dipstick 0.2 mg/dL (0.2 mg/dL) Urine Leukocyte Esterase Negative (NEG) Urine RBC Occ /HPF (0-2) Urine WBC Occ /HPF (0-4) Urine Bacteria 0 /HPF (0-FEW) Urine Mucus Slight /LPF BETSY AGUILAR MD September 22, 2018 18:27
[2018-09-22 19:20] VITALS: BP 179/91
[2018-09-22 23:05] VITALS: BP 158/81
--- NOTE | 2018-09-22 23:34 | RAD ---
Duplex ultrasound carotid arteries. HISTORY: CVA, TIA Duplex ultrasound was used to evaluate the carotid arteries. Real-time imaging, color flow imaging and Doppler were utilized for evaluation. There was no significant plaque at the right carotid bifurcation on the real-time imaging. Peak velocity in the right internal carotid artery was 96 cm/s with an end-diastolic velocity of 23 cm/s and a systolic velocity index of 0.8. There is antegrade flow in the right vertebral. There was minimal plaque at the left carotid bifurcation. Peak velocity in the left internal carotid artery was 74 cm/s with an end-diastolic velocity of 20 cm/s and a systolic velocity index of 0.8. There is antegrade flow in the left vertebral. IMPRESSION: 1. No hemodynamically significant stenosis noted in the carotid arteries. 2. Antegrade flow in each vertebral. PQRS Compliance Statement - Stenosis calculations for carotid ultrasound studies are derived from validated velocity criteria which are known to correlate with the NASCET methodology. Electronically signed by: Malcom Henderson MD (09/22/2018 11:31 PM) [id number]
[2018-09-23 03:15] VITALS: BP 147/77
[2018-09-23 06:41] LABS: BASO % 1 % (0-3); EOS # 0.1 x10^3/uL (0.0-0.7); EOS % 1 % (0-3); HEMOGLOBIN 13.8 g/dL (13.0-17.5); LYMPH # 1.6 x10^3/uL (1.0-4.8); LYMPH % 39 % (24-48); MEAN CORPUSCULAR HEMOGLOBIN 23 pg (25-35); MEAN CORPUSCULAR HGB CONC 32 g/dL (31-37); MEAN CORPUSCULAR VOLUME 72 fL (79-100); MONO # 0.5 x10^3/uL (0.0-1.1); MONO % 13 % (0-9); NEUT # 1.9 x10^3uL (1.8-7.7); NEUT % 46 % (31-73); PLATELET COUNT 71 x10^3/uL (140-400); RED BLOOD COUNT 5.96 x10^6/uL (4.30-5.70); RED CELL DISTRIBUTION WIDTH 15.2 % (11.5-14.5); WHITE BLOOD COUNT 4.2 x10^3/uL (4.0-11.0)
[2018-09-23 07:21] VITALS: BP 169/93
[2018-09-23 07:49] LABS: ALBUMIN 3.7 g/dL (3.4-5.0); CALCIUM 8.3 mg/dL (8.5-10.1); CHOLESTEROL/HDL RATIO 4.8; CREATININE 1.2 mg/dL (0.7-1.3); GFR 70.3; POTASSIUM 4.3 mmol/L (3.5-5.1); TOTAL BILIRUBIN 0.4 mg/dL (0.2-1.0); TOTAL PROTEIN 7.4 g/dL (6.4-8.2)
[2018-09-23] MEDS ORDERED: ASPIRIN CHEWABLE 81 MG TABLET. PO SCH (09:00)
[2018-09-23] MEDS ORDERED: LOSARTAN POTASSIUM 50 MG TABLET. PO SCH (09:00)
--- NOTE | 2018-09-23 09:27 | RAD ---
MRI Brain without contrast History: Left-sided weakness and numbness Technique: Multiplanar, multisequential noncontrast MR imaging was performed of the brain. Comparison: None Findings: There is mild motion. There is no evidence of recent infarct or cytotoxic edema. The ventricles, sulci, and cisterns are within normal limits in size and configuration. There is no significant midline shift, intraaxial mass effect, or focal abnormal extra-axial fluid collection. There is mild to moderate T2 and FLAIR hyperintense signal abnormality of the supratentorial parenchyma greatest of the parietal and periatrial white matter. There is small old lacunar infarct of the left periatrial white matter. There are a few tiny foci of old microhemorrhage of the bilateral thalami. There is no significant hemosiderin deposition of the brain parenchyma. There is preservation of the major intracranial flow-voids at the skull base. The mastoid air cells are aerated. The cerebellar tonsils are normal in location. There is no significant abnormality of the pineal gland or pituitary gland. There is patchy minimal ethmoid air cell and negligible maxillary sinus mucosal thickening. There is preserved marrow signal of the clivus. Impression: 1. There is no evidence of a recent infarct. Scattered T2 and FLAIR hyperintense signal abnormality of the supratentorial parenchyma bilaterally is nonspecific although most commonly due to chronic microvascular ischemic disease in patient this age. There is small old lacunar infarct left periatrial white matter. There are a few tiny foci of old microhemorrhage of the bilateral thalami. Electronically signed by: Iglesia Knox MD (09/23/2018 9:23 AM) [id number]
--- NOTE | 2018-09-23 10:31 | CARD ---
MR#: [id number] Date of Study: 09/23/2018 Ordering Physician: BRENNAN ELLER, Referring Physician: PITA RICO Tech: Jeannette Baker RDCS APPROVED REPORT EXAM: Two-dimensional and M-mode echocardiogram with Doppler and color Doppler. Other Information Quality : Good INDICATION Chest Pain 2D DIMENSIONS RVDd3.0 (2.9-3.5cm)Left Atrium(2D)3.5 (1.6-4.0cm) IVSd1.1 (0.7-1.1cm)Aortic Root(2D)3.4 (2.0-3.7cm) LVDd3.9 (3.9-5.9cm)LVOT Diameter2.1 (1.8-2.4cm) PWd1.0 (0.7-1.1cm)LVDs3.0 (2.5-4.0cm) FS (%) 25.0 %SV31.6 ml LVEF(%)56.6 (>50%) Aortic Valve AoV Peak Julio Cesar.117.9cm/sAoV VTI24.9cm AO Peak GR.5.6mmHgLVOT Peak Julio Cesar.78.2cm/s LVOT VTI 19.56cmAO Mean GR.3mmHg LEONOR (VMAX)2.41iz1SRO (VTI)2.85cm2 Mitral Valve MV E Hcavugvg14.7cm/sMV DECEL VGKU820sw MV A Mntyopaf58.2cm/sMV GDY46rp E/A Ratio0.7MVA (PHT)2.39cm2 TDI E/Lateral E'6.2E/Medial E'15.9 Tricuspid Valve TR P. Tbhnuyeq654xt/sRAP [id number] TR Peak Gr.49cjZiPWUZ33fzXd Pulmonary Vein S1 Jvblxqva66.3cm/sD2 Iconizdr24.4cm/s LEFT VENTRICLE The left ventricle is normal size. There is normal left ventricular wall thickness. The left ventricu lar systolic function is normal. The Ejection Fraction is 55-60%. There is normal LV segmental wall m otion. Transmitral Doppler flow pattern is Grade I-abnormal relaxation pattern. RIGHT VENTRICLE The right ventricle is normal size. The right ventricular systolic function is normal. ATRIA The left atrium size is normal. The right atrium size is normal. The interatrial septum is intact wit h no evidence for an atrial septal defect or patent foramen ovale as noted on 2-D or Doppler imaging. AORTIC VALVE The aortic valve is calcified but opens well. Doppler and Color Flow revealed no significant aortic r egurgitation. There is no significant aortic valvular stenosis. MITRAL VALVE The mitral valve is calcified but opens well. There is no evidence of mitral valve prolapse. There is no mitral valve stenosis. Doppler and Color-flow revealed trace mitral regurgitation. TRICUSPID VALVE The tricuspid valve is normal in structure and function. Doppler and Color Flow revealed trace tricus pid regurgitation. The PA pressure was estimated at 29 mmHg. There is no tricuspid valve stenosis. PULMONIC VALVE The pulmonic valve is not well visualized. Doppler and Color Flow revealed no pulmonic valvular regur gitation. There is no pulmonic valvular stenosis. GREAT VESSELS The aortic root is normal in size. The ascending aorta is not well seen. The IVC was not visualized. PERICARDIAL EFFUSION There is no evidence of significant pericardial effusion. Critical Notification Critical Value: No <Conclusion> The left ventricular systolic function is normal. The Ejection Fraction is 55-60%. There is normal LV segmental wall motion. Transmitral Doppler flow pattern is Grade I-abnormal relaxation pattern. Trace mitral regurgitation. Trace tricuspid regurgitation. The PA pressure was estimated at 29 mmHg. There is no evidence of significant pericardial effusion. Signed by : Blayne Christianson, Electronically Approved : 09/23/2018 10:31:17
[2018-09-23 11:06] VITALS: BP 172/88
--- NOTE | 2018-09-23 12:48 | PDOC ---
[facility] PROGRESS NOTE Chief Complaint Chief Complaint Atypical Chest pain HTN Leukopenia, Thrombocytopenia L sided paresthesia History of Present Illness History of Present Illness Patient seen and examined Cardiac causes unlikely Carotid Doppler showed bilateral antegrade flow and no significant stenosis CT head negative Awaiting MRI head Vitals Vitals Vital Signs Date Time Temp Pulse Resp B/P (MAP) Pulse Ox O2 Delivery O2 Flow Rate FiO2 09/23/18 11:06 97.6 72 18 172/88 (116) 99 Room Air 97.6 Physical Exam General: Alert, Oriented X3, Cooperative, No acute distress Heart: Regular rate (SR), Normal S1, Normal S2, No murmurs Abdomen: Soft, No tenderness Extremities: No cyanosis, No edema Skin: No breakdown, No significant lesion Labs Labs: Laboratory Tests Test 09/23/18 06:00 White Blood Count 4.2 x10^3/uL (4.0-11.0) Red Blood Count 5.96 x10^6/uL (4.30-5.70) Hemoglobin 13.8 g/dL (13.0-17.5) Hematocrit 43.0 % (39.0-53.0) Mean Corpuscular Volume 72 fL (79-100) Mean Corpuscular Hemoglobin 23 pg (25-35) Mean Corpuscular Hemoglobin Concent 32 g/dL (31-37) Red Cell Distribution Width 15.2 % (11.5-14.5) Platelet Count 71 x10^3/uL (140-400) Neutrophils (%) (Auto) 46 % (31-73) Lymphocytes (%) (Auto) 39 % (24-48) Monocytes (%) (Auto) 13 % (0-9) Eosinophils (%) (Auto) 1 % (0-3) Basophils (%) (Auto) 1 % (0-3) Neutrophils # (Auto) 1.9 x10^3uL (1.8-7.7) Lymphocytes # (Auto) 1.6 x10^3/uL (1.0-4.8) Monocytes # (Auto) 0.5 x10^3/uL (0.0-1.1) Eosinophils # (Auto) 0.1 x10^3/uL (0.0-0.7) Basophils # (Auto) 0.0 x10^3/uL (0.0-0.2) Sodium Level 139 mmol/L (136-145) Potassium Level 4.3 mmol/L (3.5-5.1) Chloride Level 104 mmol/L (98-107) Carbon Dioxide Level 23 mmol/L (21-32) Anion Gap 12 (6-14) Blood Urea Nitrogen 17 mg/dL (8-26) Creatinine 1.2 mg/dL (0.7-1.3) Estimated GFR (Cockcroft-Gault) 70.3 BUN/Creatinine Ratio 14 (6-20) Glucose Level 107 mg/dL (70-99) Calcium Level 8.3 mg/dL (8.5-10.1) Total Bilirubin 0.4 mg/dL (0.2-1.0) Aspartate Amino Transf (AST/SGOT) 29 U/L (15-37) Alanine Aminotransferase (ALT/SGPT) 64 U/L (16-63) Alkaline Phosphatase 79 U/L (46-116) Total Protein 7.4 g/dL (6.4-8.2) Albumin 3.7 g/dL (3.4-5.0) Albumin/Globulin Ratio 1.0 (1.0-1.7) Triglycerides Level 103 mg/dL (0-150) Cholesterol Level 158 mg/dL (0-200) LDL Cholesterol, Calculated 104 mg/dL (0-100) VLDL Cholesterol, Calculated 21 mg/dL (0-40) Non-HDL Cholesterol Calculated 125 mg/dL (0-129) HDL Cholesterol 33 mg/dL (40-60) Cholesterol/HDL Ratio 4.8 Review of Systems Review of Systems Patient denies JACOBS Patient denies N/V Assessment and Plan Assessmemt and Plan Problems Medical Problems: (1) Chest pain Status: Acute (2) Numbness on left side Status: Acute Assessment: Atypical Chest pain HTN Leukopenia, Thrombocytopenia L sided paresthesia Plan: MRI today Labs PT/OT Home meds DVT ppx Discharge when okay with subspecialists Comment Review of Relevant I have reviewed the following items hailey (where applicable) has been applied. Labs Laboratory Tests Test 09/22/18 10:58 09/22/18 11:26 09/22/18 12:20 09/23/18 06:00 White Blood Count 3.6 x10^3/uL (4.0-11.0) 4.2 x10^3/uL (4.0-11.0) Red Blood Count 6.24 x10^6/uL (4.30-5.70) 5.96 x10^6/uL (4.30-5.70) Hemoglobin 14.6 g/dL (13.0-17.5) 13.8 g/dL (13.0-17.5) Hematocrit 45.0 % (39.0-53.0) 43.0 % (39.0-53.0) Mean Corpuscular Volume 72 fL (79-100) 72 fL (79-100) Mean Corpuscular Hemoglobin 23 pg (25-35) 23 pg (25-35) Mean Corpuscular Hemoglobin Concent 33 g/dL (31-37) 32 g/dL (31-37) Red Cell Distribution Width 15.0 % (11.5-14.5) 15.2 % (11.5-14.5) Platelet Count 69 x10^3/uL (140-400) 71 x10^3/uL (140-400) Neutrophils (%) (Auto) 47 % (31-73) 46 % (31-73) Lymphocytes (%) (Auto) 40 % (24-48) 39 % (24-48) Monocytes (%) (Auto) 11 % (0-9) 13 % (0-9) Eosinophils (%) (Auto) 2 % (0-3) 1 % (0-3) Basophils (%) (Auto) 1 % (0-3) 1 % (0-3) Neutrophils # (Auto) 1.7 x10^3uL (1.8-7.7) 1.9 x10^3uL (1.8-7.7) Lymphocytes # (Auto) 1.4 x10^3/uL (1.0-4.8) 1.6 x10^3/uL (1.0-4.8) Monocytes # (Auto) 0.4 x10^3/uL (0.0-1.1) 0.5 x10^3/uL (0.0-1.1) Eosinophils # (Auto) 0.1 x10^3/uL (0.0-0.7) 0.1 x10^3/uL (0.0-0.7) Basophils # (Auto) 0.0 x10^3/uL (0.0-0.2) 0.0 x10^3/uL (0.0-0.2) Platelet Estimate Decreased (ADEQUATE) Large Platelets Present Anisocytosis Slight Creatine Kinase 381 U/L (39-308) Creatine Kinase MB (Mass) 3.2 ng/mL (0.0-3.6) Creatine Kinase MB Relative Index 0.8 % (0-4) Troponin I Quantitative < 0.017 ng/mL (0.000-0.055) QC-Nbn-F-Type Natriuretic Peptide 187 pg/mL (0-449) Prothrombin Time 13.5 SEC (11.7-14.0) Prothromb Time International Ratio 1.1 (0.8-1.1) Activated Partial Thromboplast Time 31 SEC (24-38) Sodium Level 139 mmol/L (136-145) 139 mmol/L (136-145) Potassium Level 4.6 mmol/L (3.5-5.1) 4.3 mmol/L (3.5-5.1) Chloride Level 103 mmol/L (98-107) 104 mmol/L (98-107) Carbon Dioxide Level 26 mmol/L (21-32) 23 mmol/L (21-32) Anion Gap 10 (6-14) 12 (6-14) Blood Urea Nitrogen 16 mg/dL (8-26) 17 mg/dL (8-26) Creatinine 1.1 mg/dL (0.7-1.3) 1.2 mg/dL (0.7-1.3) Estimated GFR (Cockcroft-Gault) 77.7 70.3 BUN/Creatinine Ratio 15 (6-20) 14 (6-20) Glucose Level 115 mg/dL (70-99) 107 mg/dL (70-99) Calcium Level 8.8 mg/dL (8.5-10.1) 8.3 mg/dL (8.5-10.1) Magnesium Level 2.3 mg/dL (1.8-2.4) Total Bilirubin 0.4 mg/dL (0.2-1.0) 0.4 mg/dL (0.2-1.0) Aspartate Amino Transf (AST/SGOT) 34 U/L (15-37) 29 U/L (15-37) Alanine Aminotransferase (ALT/SGPT) 67 U/L (16-63) 64 U/L (16-63) Alkaline Phosphatase 87 U/L (46-116) 79 U/L (46-116) Total Protein 7.8 g/dL (6.4-8.2) 7.4 g/dL (6.4-8.2) Albumin 4.0 g/dL (3.4-5.0) 3.7 g/dL (3.4-5.0) Albumin/Globulin Ratio 1.1 (1.0-1.7) 1.0 (1.0-1.7) Thyroid Stimulating Hormone (TSH) 1.879 uIU/mL (0.358-3.74) Urine Collection Type Unknown Urine Color Yellow Urine Clarity Clear Urine pH 7.0 Urine Specific Gaffney 1.010 Urine Protein Negative mg/dL (NEG-TRACE) Urine Glucose (UA) Negative mg/dL (NEG) Urine Ketones (Stick) Negative mg/dL (NEG) Urine Blood Negative (NEG) Urine Nitrite Negative (NEG) Urine Bilirubin Negative (NEG) Urine Urobilinogen Dipstick 0.2 mg/dL (0.2 mg/dL) Urine Leukocyte Esterase Negative (NEG) Urine RBC Occ /HPF (0-2) Urine WBC Occ /HPF (0-4) Urine Bacteria 0 /HPF (0-FEW) Urine Mucus Slight /LPF Triglycerides Level 103 mg/dL (0-150) Cholesterol Level 158 mg/dL (0-200) LDL Cholesterol, Calculated 104 mg/dL (0-100) VLDL Cholesterol, Calculated 21 mg/dL (0-40) Non-HDL Cholesterol Calculated 125 mg/dL (0-129) HDL Cholesterol 33 mg/dL (40-60) Cholesterol/HDL Ratio 4.8 Laboratory Tests Test 09/23/18 06:00 White Blood Count 4.2 x10^3/uL (4.0-11.0) Red Blood Count 5.96 x10^6/uL (4.30-5.70) Hemoglobin 13.8 g/dL (13.0-17.5) Hematocrit 43.0 % (39.0-53.0) Mean Corpuscular Volume 72 fL (79-100) Mean Corpuscular Hemoglobin 23 pg (25-35) Mean Corpuscular Hemoglobin Concent 32 g/dL (31-37) Red Cell Distribution Width 15.2 % (11.5-14.5) Platelet Count 71 x10^3/uL (140-400) Neutrophils (%) (Auto) 46 % (31-73) Lymphocytes (%) (Auto) 39 % (24-48) Monocytes (%) (Auto) 13 % (0-9) Eosinophils (%) (Auto) 1 % (0-3) Basophils (%) (Auto) 1 % (0-3) Neutrophils # (Auto) 1.9 x10^3uL (1.8-7.7) Lymphocytes # (Auto) 1.6 x10^3/uL (1.0-4.8) Monocytes # (Auto) 0.5 x10^3/uL (0.0-1.1) Eosinophils # (Auto) 0.1 x10^3/uL (0.0-0.7) Basophils # (Auto) 0.0 x10^3/uL (0.0-0.2) Sodium Level 139 mmol/L (136-145) Potassium Level 4.3 mmol/L (3.5-5.1) Chloride Level 104 mmol/L (98-107) Carbon Dioxide Level 23 mmol/L (21-32) Anion Gap 12 (6-14) Blood Urea Nitrogen 17 mg/dL (8-26) Creatinine 1.2 mg/dL (0.7-1.3) Estimated GFR (Cockcroft-Gault) 70.3 BUN/Creatinine Ratio 14 (6-20) Glucose Level 107 mg/dL (70-99) Calcium Level 8.3 mg/dL (8.5-10.1) Total Bilirubin 0.4 mg/dL (0.2-1.0) Aspartate Amino Transf (AST/SGOT) 29 U/L (15-37) Alanine Aminotransferase (ALT/SGPT) 64 U/L (16-63) Alkaline Phosphatase 79 U/L (46-116) Total Protein 7.4 g/dL (6.4-8.2) Albumin 3.7 g/dL (3.4-5.0) Albumin/Globulin Ratio 1.0 (1.0-1.7) Triglycerides Level 103 mg/dL (0-150) Cholesterol Level 158 mg/dL (0-200) LDL Cholesterol, Calculated 104 mg/dL (0-100) VLDL Cholesterol, Calculated 21 mg/dL (0-40) Non-HDL Cholesterol Calculated 125 mg/dL (0-129) HDL Cholesterol 33 mg/dL (40-60) Cholesterol/HDL Ratio 4.8 Medications Current Medications Aspirin (Armand Aspirin) 325 mg 1X ONCE PO Last administered on 09/22/18at 13:01; Start 09/22/18 at 12:45; Stop 09/22/18 at 12:47; Status DC Amlodipine Besylate (Norvasc) 5 mg 1X ONCE PO Last administered on 09/22/18at 16:31; Start 09/22/18 at 16:00; Stop 09/22/18 at 16:02; Status DC Labetalol HCl (Normodyne Iv Push) 20 mg PRN Q2HR PRN IVP HYPERTENSION Last administered on 09/22/18at 17:20; Start 09/22/18 at 16:00 Aspirin (Children'S Aspirin) 81 mg DAILY PO Last administered on 09/23/18at 08:22; Start 09/23/18 at 09:00 Losartan Potassium (Cozaar) 50 mg DAILY PO Last administered on 09/23/18at 08:22; Start 09/23/18 at 09:00 Active Scripts Active Reported Aspirin 81 Mg Tab.chew 1 Tab PO DAILY Losartan Potassium 50 Mg Tablet 50 Mg PO DAILY Vitals/I & O Vital Sign - Last 24 Hours 09/22/18 09/22/18 09/22/18 09/22/18 12:35 13:05 13:35 14:05 Pulse 61 61 61 65 Resp 20 20 20 20 Pulse Ox 99 98 99 99 09/22/18 09/22/18 09/22/18 09/22/18 14:52 15:12 16:31 17:08 Temp 97.4 97.4 Pulse 68 68 62 Resp 18 18 B/P (MAP) 188/93 (124) 188/93 192/93 (126) Pulse Ox 93 O2 Delivery Room Air Room Air 09/22/18 09/22/18 09/22/18 09/22/18 17:20 17:27 19:20 19:31 Temp 98.3 98.3 Pulse 62 60 73 Resp 18 20 B/P (MAP) 192/93 160/94 (116) 179/91 (120) Pulse Ox 96 O2 Delivery Room Air Room Air 09/22/18 09/23/18 09/23/18 09/23/18 23:05 03:15 07:21 07:46 Temp 97.9 97.8 97.7 97.9 97.8 97.7 Pulse 68 71 78 Resp 18 18 18 B/P (MAP) 158/81 (106) 147/77 (100) 169/93 (118) Pulse Ox 96 95 98 O2 Delivery Room Air Room Air Room Air Room Air 09/23/18 09/23/18 08:22 11:06 Temp 97.6 97.6 Pulse 78 72 Resp 18 B/P (MAP) 169/93 172/88 (116) Pulse Ox 99 O2 Delivery Room Air Intake and Output 09/22/18 09/22/18 09/23/18 15:00 23:00 07:00 Intake Total 200 ml Balance 200 ml CLARENCE ROBERTSON III DO September 23, 2018 12:48
--- NOTE | 2018-09-23 13:14 | PDOC3 ---
[facility] Summary Date of Admission: Date of Admission: September 22, 2018 Date of Discharge: Date of Discharge: September 23, 2018 Admission Diagnosis: Admitting Diagnosis: Chest pain left-sided weakness and numbness Discharge Diagnosis: Discharge Diagnosis: Atypical chest pain Hypertensive urgency Consults: Consults: Neurology and cardiology Procedures: Procedures: None Hospital Course: Hospital Course: Patient is a pleasant middle-aged male presented with chest pain and neuro symptoms He was admitted we consult cardiology and neurology I saw and examined the patient this morning He was doing well His workup so far negative I discussed the case with the patient's he like to go home I talked to the nurse relating to home this evening if okay with consultants Disposition: Disposition/Orders: D/C to Home Activity: Activity: Resume previous activity Diet: Diet: 2 gr sodium Medications: Home Meds Reported Medications Aspirin (ASPIRIN) 81 Mg Tab.chew, 1 TAB PO DAILY for blood thinner, #30 TAB 3 Refills 09/22/18 Losartan Potassium (LOSARTAN POTASSIUM) 50 Mg Tablet, 50 MG PO DAILY for HYPERTENSION, TAB 09/22/18 Scheduled Aspirin (Aspirin), 1 TAB PO DAILY, (Reported) Losartan Potassium (Losartan Potassium), 50 MG PO DAILY, (Reported) Total Time: Total Time: 33 minutes CLARENCE ROBERTSON III, DO September 23, 2018 13:14
--- NOTE | 2018-09-23 14:09 | NUR ---
SS following for discharge planning. SS reviewed pt chart. Pt is from home and is currently on room air. No discharge needs noted at this time. Discharge order on the chart. SS will continue to follow for discharge planning.
--- NOTE | 2018-09-23 14:37 | PDOC ---
PROGRESS NOTES Assessment Assessment Left side numbness and weakness 3 weeks ago, recurred today on 09/22/18. Chest pain. Near hypertensive urgency, SBP 193 mmHg. HTN. HLD. Lung infiltrate or edema. Obesity. No evidence of acute CVA this time. RECOMMENDATIONS/PLAN: BP control. ASA 325 mg daily. Zocor 10 mg HS. Consulted Cardiology. Treat medical diseases. Discussed with his close friend at bedside on 09/23/18. FU with PCP. HISTORY OF THE PRESENT ILLNESS: This is an 83-y-old AA male patient had symptoms of left side face, UE and LE numbness and weakness about 3 weeks ago. He called his PCP and was told to take ASA. His symptoms resolved then. He then was seen as outpatient base and was told had elevated BP and he was treated. He then had similar symptoms recur on 09/22/18 described as numbness and tingling in his left proximal UE and shoulder area and pain in his chest as well. He took another dose of ASA and felt better. He eventually came to [facility] seeking medical attention. His SBP was 193 mmHg. PAST MEDICAL HISTORY HTN otherwise no pertinent history PAST SURGICAL HISTORY No pertinent history FAMILY HISTORY Noncontributory. ALLERGY: NKDA MEDICATIONS: Refer to [facility] SOCIAL HISTORY: Lives at home. Denies current smoking, drinking, and illicit drug use. REVIEW OF SYSTEMS: Constitutional: Obese. Head: No traumatic brain or head injury. Skin: No edema, or rash. Ear: No infection. Eyes: No vision loss or color blindness. Nose: No bleeding or purulent discharges. Hearing: No hearing decrease. Neck: No injury. Cardiac: HTN. Pulmonary: No COPD. GI: No GI ulcer, GI bleeding. Urinary/genital: No dysuria, incontinence, urinary retention. Endocrinologic:Obesity. Skeletomuscular: No muscular atrophy. Neurological: see HP. Psychiatric: Denies drug use/abuse. Otherwise, not [id number] review of systems. PHYSICAL EXAMINATION: General appearance is in subacute distress. HEENT: Normocephalic and nontraumatic. Eyes, nose, ears, and throat are unremarkable. Neck is supple. No lymphadenopathy. No crepitus. Cardiovascular: S1, S2, regular rate and rhythm. Pulmonary: Clear to auscultation bilaterally. Abdomen: Bowel sounds are positive. Abdomen is soft, nontender, and nondistended. Extremities: No rash, lesions, or edema. No restriction of range of motion NEUROLOGICAL EXAMINATION: Alert Oriented to time, place and person. PERRL. EOMI. CN: no focal findings. Muscle tone: within normal. Muscle strength: 5 DTR: 1-2 Plantar reflex: Flexor response bilaterally Gait: Normal. Sensory exam: no abnormal findings. No cerebellar signs elicited. F-T-N test accurate. Objective Objective Vital Signs Date Time Temp Pulse Resp B/P (MAP) Pulse Ox O2 Delivery O2 Flow Rate FiO2 09/23/18 11:06 97.6 72 18 172/88 (116) 99 Room Air 97.6 Intake and Output 09/23/18 07:00 Intake Total 200 ml Balance 200 ml Intake Oral 200 ml # Voids 1 Vitals Signs Vitals VS - Last 72 Hours, by Label Date Time Temp Pulse Resp B/P (MAP) Pulse Ox O2 Delivery O2 Flow Rate FiO2 09/23/18 11:06 97.6 72 18 172/88 (116) 99 Room Air 97.6 09/23/18 08:22 78 169/93 09/23/18 07:46 Room Air 09/23/18 07:21 97.7 78 18 169/93 (118) 98 Room Air 97.7 09/23/18 03:15 97.8 71 18 147/77 (100) 95 Room Air 97.8 09/22/18 23:05 97.9 68 18 158/81 (106) 96 Room Air 97.9 09/22/18 19:31 Room Air 09/22/18 19:20 98.3 73 20 179/91 (120) 96 Room Air 98.3 09/22/18 17:27 60 18 160/94 (116) 09/22/18 17:20 62 192/93 09/22/18 17:08 62 18 192/93 (126) 09/22/18 16:31 68 188/93 09/22/18 15:12 Room Air 09/22/18 14:52 97.4 68 18 188/93 (124) 93 Room Air 97.4 09/22/18 14:05 65 20 99 09/22/18 13:35 61 20 99 09/22/18 13:05 61 20 98 09/22/18 12:35 61 20 99 09/22/18 12:05 61 20 97 09/22/18 11:35 63 20 98 09/22/18 11:05 68 20 98 09/22/18 10:37 98.2 70 18 182/89 (120) 99 Room Air 98.2 Laboratory Laboratory Laboratory Tests Test 09/23/18 06:00 White Blood Count 4.2 x10^3/uL (4.0-11.0) Red Blood Count 5.96 x10^6/uL (4.30-5.70) Hemoglobin 13.8 g/dL (13.0-17.5) Hematocrit 43.0 % (39.0-53.0) Mean Corpuscular Volume 72 fL (79-100) Mean Corpuscular Hemoglobin 23 pg (25-35) Mean Corpuscular Hemoglobin Concent 32 g/dL (31-37) Red Cell Distribution Width 15.2 % (11.5-14.5) Platelet Count 71 x10^3/uL (140-400) Neutrophils (%) (Auto) 46 % (31-73) Lymphocytes (%) (Auto) 39 % (24-48) Monocytes (%) (Auto) 13 % (0-9) Eosinophils (%) (Auto) 1 % (0-3) Basophils (%) (Auto) 1 % (0-3) Neutrophils # (Auto) 1.9 x10^3uL (1.8-7.7) Lymphocytes # (Auto) 1.6 x10^3/uL (1.0-4.8) Monocytes # (Auto) 0.5 x10^3/uL (0.0-1.1) Eosinophils # (Auto) 0.1 x10^3/uL (0.0-0.7) Basophils # (Auto) 0.0 x10^3/uL (0.0-0.2) Sodium Level 139 mmol/L (136-145) Potassium Level 4.3 mmol/L (3.5-5.1) Chloride Level 104 mmol/L (98-107) Carbon Dioxide Level 23 mmol/L (21-32) Anion Gap 12 (6-14) Blood Urea Nitrogen 17 mg/dL (8-26) Creatinine 1.2 mg/dL (0.7-1.3) Estimated GFR (Cockcroft-Gault) 70.3 BUN/Creatinine Ratio 14 (6-20) Glucose Level 107 mg/dL (70-99) Calcium Level 8.3 mg/dL (8.5-10.1) Total Bilirubin 0.4 mg/dL (0.2-1.0) Aspartate Amino Transf (AST/SGOT) 29 U/L (15-37) Alanine Aminotransferase (ALT/SGPT) 64 U/L (16-63) Alkaline Phosphatase 79 U/L (46-116) Total Protein 7.4 g/dL (6.4-8.2) Albumin 3.7 g/dL (3.4-5.0) Albumin/Globulin Ratio 1.0 (1.0-1.7) Triglycerides Level 103 mg/dL (0-150) Cholesterol Level 158 mg/dL (0-200) LDL Cholesterol, Calculated 104 mg/dL (0-100) VLDL Cholesterol, Calculated 21 mg/dL (0-40) Non-HDL Cholesterol Calculated 125 mg/dL (0-129) HDL Cholesterol 33 mg/dL (40-60) Cholesterol/HDL Ratio 4.8 Medication Medications Current Medications Amlodipine Besylate (Norvasc) 5 mg 1X ONCE PO Last administered on 09/22/18at 16:31; Start 09/22/18 at 16:00; Stop 09/22/18 at 16:02; Status DC Aspirin (Children'S Aspirin) 81 mg DAILY PO Last administered on 09/23/18at 08:22; Start 09/23/18 at 09:00 Labetalol HCl (Normodyne Iv Push) 20 mg PRN Q2HR PRN IVP HYPERTENSION Last administered on 09/22/18at 17:20; Start 09/22/18 at 16:00 Losartan Potassium (Cozaar) 50 mg DAILY PO Last administered on 09/23/18at 08:22; Start 09/23/18 at 09:00 Comment Review of Relevant I have reviewed the following items hailey (where applicable) has been applied. BETSY AGUILAR MD September 23, 2018 14:37
[2018-09-23] MEDS ORDERED: SIMVASTATIN 10 MG TABLET PO SCH (21:00)
== END 2018-09-23 15:05 | disposition home or self-care (01) | DRG 305 ==
LOC: ER 10:22 → 2 SOUTH 12:41
PROVIDERS: ADMIT Family Medicine; ATTEND Family Medicine
DX: I16.0 Hypertensive urgency (principal); I10 Essential (primary) hypertension; D69.6 Thrombocytopenia, unspecified; D72.819 Decreased white blood cell count, unspecified; D75.1 Secondary polycythemia; E66.9 Obesity, unspecified; E78.5 Hyperlipidemia, unspecified; Z82.49 Family history of ischemic heart disease and other diseases of the circulatory system; Z68.32 Body mass index [BMI] 32.0-32.9, adult; Z79.82 Long term (current) use of aspirin
CPT/HCPCS: 36415; 70450; 70551; 71045; 80053; 80061; 81001; 82553; 83735; 83880; 84443; 84484; 85025; 85610; 85730; 93005; 93306; 93880; J3490; 99285-25

== ENCOUNTER 2019-03-26 08:55 | Emergency (ER) | payer SELFPAY ==
[~2019-03-26] VITALS: Ht 193 cm; Wt 117.9 kg
[~2019-03-26 08:55] MED LIST: ASPI-630 PO; LOSA-73 PO
[2019-03-26 09:08] VITALS: BP 159/93
[2019-03-26] MEDS ORDERED: METH4TAB2 PO (09:28)
[2019-03-26] MEDS ORDERED: LOSA-73 PO (09:28)
--- NOTE | 2019-03-26 09:29 | PHYS DOC ---
Past Medical History Past Medical History: Hypertension Past Surgical History: No Surgical History Alcohol Use: Occasionally Drug Use: None Adult General Chief Complaint Chief Complaint: MULTIPLE COMPLAINTS HPI HPI Patient is a 83 year old male patient with history of hypertension who presents with complaint of needs refill of prescription. Patient states he takes blood pressure medication and ran out of his medication for the last 2 days and because of lack of primary care physician was unable to get refill of his medication. Patient states he also had chronic left upper extremity intermittent episodes of numbness for the last 6 months with previous evaluation in this hospital without improvement of his condition. Review of Systems Review of Systems Constitutional: Denies fever or chills [] Eyes: Denies change in visual acuity, redness, or eye pain [] HENT: Denies nasal congestion or sore throat [] Respiratory: Denies cough or shortness of breath [] Cardiovascular: No additional information not addressed in HPI [] GI: Denies abdominal pain, nausea, vomiting, bloody stools or diarrhea [] : Denies dysuria or hematuria [] Musculoskeletal: Denies back pain or joint pain [] Integument: Denies rash or skin lesions [] Neurologic: Denies headache, focal weakness , reports sensory changes [] Endocrine: Denies polyuria or polydipsia [] All other systems were reviewed and found to be within normal limits, except as documented in this note. Allergies Allergies Allergies Coded Allergies Type Severity Reaction Last Updated Verified No Known Drug Allergies 09/22/18 No Physical Exam Physical Exam Constitutional: Well developed, well nourished, no distress, non-toxic appearance. [] HENT: Normocephalic, atraumatic. Eyes: PERRLA, EOMI, conjunctiva normal, no discharge. [] Neck: Normal range of motion, no tenderness, supple, no stridor. [] Cardiovascular:Heart rate regular rhythm, no murmur [] Lungs & Thorax: Bilateral breath sounds clear to auscultation [] Abdomen: Bowel sounds normal, soft, no tenderness, no masses, no pulsatile masses. [] Skin: Warm, dry, no erythema, no rash. [] Back: No tenderness, no CVA tenderness. [] Extremities: No tenderness, no cyanosis, no clubbing, ROM intact, no edema. [] Neurologic: Alert and oriented X 3, no focal deficits noted, no paresthesias of left upper extremity. [] Psychologic: Affect normal, judgement normal, mood normal. [] Current Patient Data Vital Signs Vital Signs Date Time Temp Pulse Resp B/P (MAP) Pulse Ox O2 Delivery O2 Flow Rate FiO2 03/26/19 09:08 97.4 83 17 159/93 (115) 98 Room Air 97.4 EKG EKG [] Radiology/Procedures Radiology/Procedures [] Course & Med Decision Making Course & Med Decision Making Evaluation of patient in ER showed 83-year-old male patient with complaining of chronic left upper extremity numbness for more than 6 months and needs for refill of blood pressure medication because of lack of primary care physician. Patient had unremarkable exam without anesthesia. Patient was advised to follow- up with the primary care physician for chronic pain and feeling of medication. Treatment for cervical radiculopathy and refill of Losartan was given. I've spoken with the patient and/or caregivers. I've explained the patient's condition, diagnosis and treatment plan based on information available to me at this time. I've answered the patient's and/or caregivers questions and addressed any concerns. The patient and/or caregivers have a good understanding the patient's diagnosis, condition and treatment plan as can be expected at this point. Vital signs have been stabilized. The patient's condition is stable for discharge from the emergency department. The patient will pursue further outpatient evaluation with her primary care provider or other designated consulting physician as outlined in the discharge instructions. Patient and/or caregivers are agreeable to this plan of care and follow-up instructions have been explained in detail. The patient and/or caregivers have received these instructions in written format and expressed understanding of these discharge instructions. The patient and her caregivers are aware that if any significant change in condition or worsening of symptoms should prompt him to immediately return to this of the closest emergency department. If an emergent department is not readily available I would encourage him to call 911. Suze Disclaimer Eliason Disclaimer This electronic medical record was generated, in whole or in part, using a voice recognition dictation system. Departure Departure Impression: Primary Impression: Medication refill Additional Impressions: Uncontrolled hypertension Cervical radiculopathy Disposition: HOME, SELF-CARE (at [phone]) Condition: STABLE Referrals: ALIX CHRISTIANSEN (PCP) Patient Instructions: Cervical Radiculopathy, Form - Blood Pressure Record Sheet, How to Take Your Blood Pressure, [id number], Managing Your High Blood Pressure Additional Instructions: Apply ice on the left side of your neck Follow-up with your primary care physician in 2-3 days Return to ER if not getting better Scripts Methylprednisolone (MEDROL) 4 Mg Tab.ds.pk 1 PKG PO UD for inflammation, #1 PKG Prov: MAT JOHNSON MD 03/26/19 Losartan Potassium (LOSARTAN POTASSIUM) 50 Mg Tablet 50 MG PO DAILY for HYPERTENSION, #30 TAB Prov: MAT JOHNSON MD 03/26/19 Problem Qualifiers MAT JOHNSON MD Mar 26, 2019 09:29
== END 2019-03-26 09:58 | disposition home or self-care (01) ==
LOC: ER 08:55 → EDBD 08:55 → ER 09:58
DX: I10 Essential (primary) hypertension (principal); M54.12 Radiculopathy, cervical region; Z76.0 Encounter for issue of repeat prescription
CPT/HCPCS: 99283

== ENCOUNTER 2019-04-01 01:55 | Emergency (ER) | payer SELFPAY ==
[~2019-04-01] VITALS: Ht 193 cm; Wt 117.9 kg
[~2019-04-01 01:55] MED LIST changes: +METH4TAB2 PO
[2019-04-01] MEDS ORDERED: cloNIDine HCL 0.1 MG TABLET PO ONE (03:00)
[2019-04-01 03:14] LABS: BASO % 1 % (0-3); EOS # 0.1 x10^3/uL (0.0-0.7); EOS % 2 % (0-3); HEMATOCRIT 44.2 % (39.0-53.0); HEMOGLOBIN 14.1 g/dL (13.0-17.5); LYMPH # 2.3 x10^3/uL (1.0-4.8); LYMPH % 35 % (24-48); MEAN CORPUSCULAR HEMOGLOBIN 23 pg (25-35); MEAN CORPUSCULAR HGB CONC 32 g/dL (31-37); MEAN CORPUSCULAR VOLUME 72 fL (79-100); MONO # 0.6 x10^3/uL (0.0-1.1); MONO % 9 % (0-9); NEUT # 3.6 x10^3/uL (1.8-7.7); NEUT % 54 % (31-73); PLATELET COUNT 86 x10^3/uL (140-400); PROTHROMBIN TIME PATIENT 13.6 SEC (11.7-14.0); RED BLOOD COUNT 6.18 x10^6/uL (4.30-5.70); RED CELL DISTRIBUTION WIDTH 14.7 % (11.5-14.5); WHITE BLOOD COUNT 6.7 x10^3/uL (4.0-11.0)
[2019-04-01 03:16] LABS: CALCIUM 8.8 mg/dL (8.5-10.1); CREATININE 1.3 mg/dL (0.7-1.3); GFR 64.1; POTASSIUM 4.5 mmol/L (3.5-5.1)
[2019-04-01 03:23] LABS: ALBUMIN 3.8 g/dL (3.4-5.0); MAGNESIUM 2.3 mg/dL (1.8-2.4); TOTAL BILIRUBIN 0.3 mg/dL (0.2-1.0); TOTAL PROTEIN 7.8 g/dL (6.4-8.2)
[2019-04-01 03:34] LABS: HYPOCHROMIA SLIGHT; MICROCYTOSIS MOD; PLT ESTIMATE DECREASED (ADEQUATE); TARGET CELLS OCC
[2019-04-01 03:43] VITALS: BP 156/80
[2019-04-01] MEDS ORDERED: CYCL10TA2 PO (03:46)
--- NOTE | 2019-04-01 03:46 | PHYS DOC ---
Past Medical History Past Medical History: Hypertension Past Surgical History: No Surgical History Alcohol Use: Occasionally Drug Use: None Adult General Chief Complaint Chief Complaint: HYPERTENSION HPI HPI Patient is a 83 year old male with history of hypertension who presents with complaining of high blood pressure. Patient stated he felt palpitation that usually happen after elevation of blood pressure and decided to come to the hospital without checking his blood pressure at home. Patient was seen in this emergency room a few days ago because same complaint and had a refill of low start time. Patient also treated with Medrol Dosepak for left cervical radiculopathy and as stated his pain improved after finishing the medication pain to 10 again. Patient denies pain at arrival to ER. Review of Systems Review of Systems Constitutional: Denies fever or chills [] Eyes: Denies change in visual acuity, redness, or eye pain [] HENT: Denies nasal congestion or sore throat [] Respiratory: Denies cough or shortness of breath [] Cardiovascular: No additional information not addressed in HPI [] GI: Denies abdominal pain, nausea, vomiting, bloody stools or diarrhea [] : Denies dysuria or hematuria [] Musculoskeletal: Denies back pain or joint pain [] Integument: Denies rash or skin lesions [] Neurologic: Denies headache, focal weakness or sensory changes [] Endocrine: Denies polyuria or polydipsia [] All other systems were reviewed and found to be within normal limits, except as documented in this note. Current Medications Current Medications Current Medications Medications (Trade) Dose Ordered Sig/Stacy Start Time Stop Time Status Last Admin Dose Admin Clonidine HCl (Catapres) 0.1 mg 1X ONCE 04/01/19 03:00 04/01/19 03:01 DC 04/01/19 03:00 0.1 MG Allergies Allergies Allergies Coded Allergies Type Severity Reaction Last Updated Verified No Known Drug Allergies 09/22/18 No Physical Exam Physical Exam Constitutional: Well developed, well nourished, no acute distress, non-toxic appearance. [] HENT: Normocephalic, atraumatic, bilateral external ears normal, oropharynx moist, no oral exudates, nose normal. [] Eyes: PERRLA, EOMI, conjunctiva normal, no discharge. [] Neck: Normal range of motion, no tenderness, supple, no stridor. [] Cardiovascular:Heart rate regular rhythm, no murmur [] Lungs & Thorax: Bilateral breath sounds clear to auscultation [] Abdomen: Bowel sounds normal, soft, no tenderness, no masses, no pulsatile masses. [] Skin: Warm, dry, no erythema, no rash. [] Back: No tenderness, no CVA tenderness. [] Extremities: No tenderness, no cyanosis, no clubbing, ROM intact, no edema. [] Neurologic: Alert and oriented X 3, normal motor function, normal sensory function, no focal deficits noted. [] Psychologic: Affect anxious, judgement normal, mood normal. [] Current Patient Data Vital Signs Vital Signs Date Time Temp Pulse Resp B/P (MAP) Pulse Ox O2 Delivery O2 Flow Rate FiO2 04/01/19 03:43 72 16 100 04/01/19 03:00 164/79 04/01/19 02:20 97.4 Room Air 97.4 Lab Values Laboratory Tests Test 04/01/19 02:54 White Blood Count 6.7 x10^3/uL (4.0-11.0) Red Blood Count 6.18 x10^6/uL (4.30-5.70) H Hemoglobin 14.1 g/dL (13.0-17.5) Hematocrit 44.2 % (39.0-53.0) Mean Corpuscular Volume 72 fL (79-100) L Mean Corpuscular Hemoglobin 23 pg (25-35) L Mean Corpuscular Hemoglobin Concent 32 g/dL (31-37) Red Cell Distribution Width 14.7 % (11.5-14.5) H Platelet Count 86 x10^3/uL (140-400) L Neutrophils (%) (Auto) 54 % (31-73) Lymphocytes (%) (Auto) 35 % (24-48) Monocytes (%) (Auto) 9 % (0-9) Eosinophils (%) (Auto) 2 % (0-3) Basophils (%) (Auto) 1 % (0-3) Neutrophils # (Auto) 3.6 x10^3/uL (1.8-7.7) Lymphocytes # (Auto) 2.3 x10^3/uL (1.0-4.8) Monocytes # (Auto) 0.6 x10^3/uL (0.0-1.1) Eosinophils # (Auto) 0.1 x10^3/uL (0.0-0.7) Basophils # (Auto) 0.0 x10^3/uL (0.0-0.2) Platelet Estimate Decreased (ADEQUATE) Giant Platelets Occ Hypochromasia Slight Microcytosis Mod Target Cells Occ Prothrombin Time 13.6 SEC (11.7-14.0) Prothrombin Time INR 1.1 (0.8-1.1) Sodium Level 137 mmol/L (136-145) Potassium Level 4.5 mmol/L (3.5-5.1) Chloride Level 100 mmol/L (98-107) Carbon Dioxide Level 28 mmol/L (21-32) Anion Gap 9 (6-14) Blood Urea Nitrogen 33 mg/dL (8-26) H Creatinine 1.3 mg/dL (0.7-1.3) Estimated GFR (Cockcroft-Gault) 64.1 BUN/Creatinine Ratio 25 (6-20) H Glucose Level 88 mg/dL (70-99) Calcium Level 8.8 mg/dL (8.5-10.1) Magnesium Level 2.3 mg/dL (1.8-2.4) Total Bilirubin 0.3 mg/dL (0.2-1.0) Aspartate Amino Transferase (AST) 30 U/L (15-37) Alanine Aminotransferase (ALT) 56 U/L (16-63) Alkaline Phosphatase 74 U/L (46-116) Creatine Kinase 219 U/L (39-308) Troponin I Quantitative < 0.017 ng/mL (0.000-0.055) SQ-[id number]-Type Natriuretic Peptide 136 pg/mL (0-449) Total Protein 7.8 g/dL (6.4-8.2) Albumin 3.8 g/dL (3.4-5.0) Albumin/Globulin Ratio 1.0 (1.0-1.7) Laboratory Tests 04/01/19 02:54 Laboratory Tests 04/01/19 02:54 EKG EKG EKG interpreted by me. Normal sinus rhythm at rate of 74, poor R-wave progress in anteroseptal leads, no acute ST and T-wave elevation. Radiology/Procedures Radiology/Procedures Chest -X-ray interpreted by me and did not show acute finding. Course & Med Decision Making Course & Med Decision Making Pertinent Labs and Imaging studies reviewed. (See chart for details) Evaluation of patient in ER showed 83-year-old male patient presented to ER because of elevation of blood pressure. Patient had blood pressure more than 200 that gradually decreased to 170/93 with 0.1 mg of clonidine orally. Patient had unremarkable labs and EKG and felt better after treatment in ER. Patient does not have a primary care physician and was seen in this emergency room several days ago with complaining of elevation of blood pressure. Patient also complaining of left shoulder pain and stated he felt better after Medrol Dosepak but he ran out of the medication. Plan to give prescription of Flexeril and instruction to continue Tylenol and follow-up with primary care physician. Dragon Disclaimer Dragon Disclaimer This electronic medical record was generated, in whole or in part, using a voice recognition dictation system. Departure Departure Impression: Primary Impression: Hypertensive urgency Additional Impression: Cervical radiculopathy Disposition: HOME, SELF-CARE (at 0344) Condition: IMPROVED Referrals: ALIX CHRISTIANSEN (PCP) Patient Instructions: Cervical Radiculopathy, Form - Blood Pressure Record Sheet, How to Take Your Blood Pressure, [id number], Managing Your High Blood Pressure Additional Instructions: Drink plenty of liquids Follow-up with your primary care physician in 3-5 days Return to ER if not getting better Continue current home medication Scripts Cyclobenzaprine Hcl (CYCLOBENZAPRINE HCL) 10 Mg Tablet 1 TAB PO TID, #21 TAB Prov: MAT JOHNSON MD 04/01/19 Problem Qualifiers MAT JOHNSON MD Apr 01, 2019 03:46
--- NOTE | 2019-04-01 08:13 | RAD ---
CHEST PA LATERAL INDICATION: Hypertension. Palpitations. COMPARISON STUDY: 09/22/2018. FINDINGS: Lungs: Normal lung volume. No pulmonary mass or consolidation. The tracheobronchial tree and hilar structures are normal. Pleura: No pleural effusion or pneumothorax. Heart and Mediastinum: The cardiomediastinal silhouette is normal. Tortuous atherosclerotic aorta. IMPRESSION: No consolidation. Electronically signed by: Iglesia Josue MD (04/01/2019 8:11 AM) [facility]
--- NOTE | 2019-04-02 10:09 | EKG ---
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
== END 2019-04-01 04:05 | disposition home or self-care (01) ==
LOC: ER 01:55
DX: I16.0 Hypertensive urgency (principal); M54.12 Radiculopathy, cervical region
CPT/HCPCS: 36415; 71046; 80053; 82550; 83735; 83880; 84484; 85025; 85610; 93005; 99285

== ENCOUNTER 2019-04-14 08:20 | Inpatient (IN) | payer SELFPAY ==
[~2019-04-14] VITALS: Ht 193 cm; Wt 117.1 kg
[~2019-04-14 08:20] MED LIST changes: +CYCL10TA2 PO
--- NOTE | 2019-04-14 09:09 | EKG ---
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
--- NOTE | 2019-04-14 09:39 | RAD ---
CT HEAD WO CONTRAST Date: 04/14/2019 8:46 AM Clinical Indication: Left arm numbness Comparison: 09/22/2018. Technique: 5 mm axial tomographic images were obtained of the head without contrast. These were viewed on brain and bone windows. One or more of the following dose reduction techniques were utilized: Automated exposure control (AEC), Adjustment of mA and/or kV according to patient size, Use of iterative reconstruction technique such as ASiR, CT scan done according to ALARA and image gently/image wisely Findings: Mild generalized cerebral and cerebellar volume loss. Mild nonspecific periventricular hypoattenuation, most commonly seen with chronic small vessel ischemic disease. Calcified atherosclerosis of the bilateral cavernous and paraclinoid internal carotid arteries and intracranial vertebral arteries. No intra- or extra-axial mass or fluid collection. No acute hemorrhage. The ventricles are normal in size, shape, and morphology. The piedra-white matter junction is normal. The subarachnoid cisterns are patent. The visualized paranasal sinuses are normal. The visualized portions of the orbits and globes are normal. The mastoid air cells are clear. The studio owner topogram shows no lytic lesion or fracture. Impression: No acute intracranial process. Mild cerebral volume loss. Mild chronic small vessel ischemic disease. Electronically signed by: Iglesia Josue MD (04/14/2019 9:37 AM) [facility]
--- NOTE | 2019-04-14 09:44 | RAD ---
Examination: PORTABLE CHEST 1V History: Chest pain Comparison/Correlation: 04/01/2019 two-view chest x-ray exam Findings: Portable upright view chest was obtained. Heart size and pulmonary vasculature are normal. No infiltrate or pleural effusion. No pneumothorax. Bony structures unremarkable. Impression: No active disease. Electronically signed by: Tomasz Bejarano MD (04/14/2019 9:41 AM) [facility]
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
[2019-04-14 10:20] LABS: ALBUMIN/GLOBULIN RATIO 1.2 (1.0-1.7); BASO % 1 % (0-3); CALCIUM 8.9 mg/dL (8.5-10.1); CREATININE 1.1 mg/dL (0.7-1.3); EOS # 0.1 x10^3/uL (0.0-0.7); EOS % 2 % (0-3); GFR 77.7; HEMATOCRIT 35.8 % (39.0-53.0); HEMOGLOBIN 11.4 g/dL (13.0-17.5); LYMPH # 1.1 x10^3/uL (1.0-4.8); LYMPH % 26 % (24-48); MAGNESIUM 2.2 mg/dL (1.8-2.4); MEAN CORPUSCULAR HEMOGLOBIN 23 pg (25-35); MEAN CORPUSCULAR HGB CONC 32 g/dL (31-37); MEAN CORPUSCULAR VOLUME 71 fL (79-100); MONO # 0.5 x10^3/uL (0.0-1.1); MONO % 11 % (0-9); NEUT # 2.6 x10^3/uL (1.8-7.7); NEUT % 61 % (31-73); PLATELET COUNT 117 x10^3/uL (140-400); POTASSIUM 4.2 mmol/L (3.5-5.1); RED BLOOD COUNT 5.02 x10^6/uL (4.30-5.70); RED CELL DISTRIBUTION WIDTH 14.7 % (11.5-14.5); TOTAL BILIRUBIN 0.6 mg/dL (0.2-1.0); TOTAL PROTEIN 7.4 g/dL (6.4-8.2); WHITE BLOOD COUNT 4.3 x10^3/uL (4.0-11.0)
[2019-04-14 10:45] LABS: PLT ESTIMATE ADEQUATE (ADEQUATE)
[2019-04-14] MEDS ORDERED: ONDANSETRON PF 4 MG/2 ML VIAL. IVP ONE (14:00)
[2019-04-14] MEDS ORDERED: MORPHINE SULFATE 4 MG/ML VIAL. IV ONE (14:00)
--- NOTE | 2019-04-14 14:28 | PDOC1 ---
History and Physical Date of Admission Date of Admission DATE: 04/14/19 TIME: 14:24 Identification/Chief Complaint Chief Complaint chest pain Source Source: Chart review, Patient History of Present Illness History of Present Illness Mr. Chang, is an 83-year-old male admit with new mid chest discomfort and new left-sided facial numbness as well as left arm, shoulder and neck. he has new symptoms last night, had similar recurrent symptoms since September. He also indicates that last night he was having significant chest pain on the left side that he describes as being punched in the chest. Pain is very mild, discomfort, not really pain and did not give a number. 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, eats only organic food, and exercised vigorously at baseline, new dyspnea and weakness, Past Medical History Cardiovascular: HTN Past Surgical History Past Surgical History: No pertinent history Family History Family History: Hypertension Social History Smoke: No ALCOHOL: none Drugs: None Current Problem List Problem List Problems Medical Problems: (1) Chest pain at rest Status: Acute (2) Left sided numbness Status: Acute Current Medications Current Medications Current Medications Morphine Sulfate (Morphine Sulfate) 4 mg 1X ONCE IV Last administered on 04/14/19at 14:10; Start 04/14/19 at 14:00; Stop 04/14/19 at 14:01; Status DC Ondansetron HCl (Zofran) 4 mg 1X ONCE IVP Last administered on 04/14/19at 14:09; Start 04/14/19 at 14:00; Stop 04/14/19 at 14:01; Status DC Active Scripts Active Cyclobenzaprine Hcl 10 Mg Tablet 1 Tab PO TID Medrol (Methylprednisolone) 4 Mg Tab.ds.pk 1 Pkg PO UD Losartan Potassium 50 Mg Tablet 50 Mg PO DAILY Reported Aspirin 81 Mg Tab.chew 1 Tab PO DAILY Losartan Potassium 50 Mg Tablet 50 Mg PO DAILY Allergies Allergies: Coded Allergies: No Known Drug Allergies (Unverified , 09/22/18) ROS General: No: Chills, Night Sweats, Fatigue, Malaise, Appetite, Other PSYCHOLOGICAL ROS: No: Anxiety, Behavioral Disorder, Concentration difficultie, Decreased libido, Depression, Disorientation, Hallucinations, Hostility, Irritablity, Memory difficulties, Mood Swings, Obsessive thoughts, Physical abuse, Sexual abuse, Sleep disturbances, Suicidal ideation, Other Eyes: No Blurry vision, No Decreased vision, No Double vision, No Dry eyes, No Excessive tearing, No Eye Pain, No Itchy Eyes, No Loss of vision, No Photophobia, No Scotomata, No Uses contacts, No Uses glasses, No Other HEENT: No: Heacaches, Visual Changes, Hearing change, Nasal congestion, Nasal discharge, Oral lesions, Sinus pain, Sore Throat, Epistaxis, Sneezing, Snoring, Tinnitus, Vertigo, Vocal changes, Other Respiratory: No: Cough, Hemoptysis, Orthopnea, Pleuritic Pain, Shortness of breath, SOB with excertion, Sputum Changes, Stridor, Tachypnea, Wheezing, Other Cardiovascular: yes Chest Pain, yes Other (neck and arm numb); No Palpitations, No Orthopnea, No Paroxysmal Noc. Dyspnea, No Edema, No Lt Headedness Gastrointestinal: No Nausea, No Vomiting, No Abdominal Pain, No Diarrhea, No Constipation, No Melena, No Hematochezia, No Other Genitourinary: No Dysuria, No Frequency, No Incontinence, No Hematuria, No R etention, No Discharge, No Urgency, No Pain, No Flank Pain, No Other, No , No , No , No , No , No , No Musculoskeletal: No Gait Disturbance, No Joint Pain, No Joint Stiffness, No Joint Swelling, No Muscle Pain, No Muscular Weakness, No Pain In:, No Swelling In:, No Other Neurological: Yes Numbness/Tingling; No Behavorial Changes, No Bowel/Bladder ControlChng, No Confusion, No Dizziness, No Gait Disturbance, No Headaches, No Impaired Coord/balance, No Memory Loss, No Seizures, No Speech Problems, No Tremors, No Visual Changes, No Weakness, No Other Skin: Yes Dry Skin; No Eczema, No Hair Changes, No Lumps, No Mole Changes, No Mottling, No Nail Changes, No Pruritus, No Rash, No Skin Lesion Changes, No Other, No Acne Physical Exam General: Alert, Oriented X3, Cooperative, No acute distress HEENT: PERRLA, EOMI, Mucous membr. moist/pink Lungs: Clear to auscultation, Normal air movement Heart: S1S2, RRR, no gallops, no murmurs Abdomen: Normal bowel sounds, Soft, No tenderness Extremities: No cyanosis, No edema, Normal pulses Skin: No rashes, No breakdown, No significant lesion Neuro: Normal speech, Normal tone, Sensation intact, Cranial nerves 3-12 NL Psych/Mental Status: Mood NL Vitals Vitals Vital Signs Date Time Temp Pulse Resp B/P (MAP) Pulse Ox O2 Delivery O2 Flow Rate FiO2 04/14/19 14:10 18 04/14/19 11:30 74 97 04/14/19 08:34 97.8 195/114 (141) Room Air 97.8 Labs Labs Laboratory Tests Test 04/14/19 09:50 White Blood Count 4.3 x10^3/uL (4.0-11.0) Red Blood Count 5.02 x10^6/uL (4.30-5.70) Hemoglobin 11.4 g/dL (13.0-17.5) Hematocrit 35.8 % (39.0-53.0) Mean Corpuscular Volume 71 fL (79-100) Mean Corpuscular Hemoglobin 23 pg (25-35) Mean Corpuscular Hemoglobin Concent 32 g/dL (31-37) Red Cell Distribution Width 14.7 % (11.5-14.5) Platelet Count 117 x10^3/uL (140-400) Neutrophils (%) (Auto) 61 % (31-73) Lymphocytes (%) (Auto) 26 % (24-48) Monocytes (%) (Auto) 11 % (0-9) Eosinophils (%) (Auto) 2 % (0-3) Basophils (%) (Auto) 1 % (0-3) Neutrophils # (Auto) 2.6 x10^3/uL (1.8-7.7) Lymphocytes # (Auto) 1.1 x10^3/uL (1.0-4.8) Monocytes # (Auto) 0.5 x10^3/uL (0.0-1.1) Eosinophils # (Auto) 0.1 x10^3/uL (0.0-0.7) Basophils # (Auto) 0.0 x10^3/uL (0.0-0.2) Platelet Estimate Adequate (ADEQUATE) Large Platelets Present Erythrocyte Sedimentation Rate 8 (0-15) Sodium Level 138 mmol/L (136-145) Potassium Level 4.2 mmol/L (3.5-5.1) Chloride Level 101 mmol/L (98-107) Carbon Dioxide Level 26 mmol/L (21-32) Anion Gap 11 (6-14) Blood Urea Nitrogen 26 mg/dL (8-26) Creatinine 1.1 mg/dL (0.7-1.3) Estimated GFR (Cockcroft-Gault) 77.7 BUN/Creatinine Ratio 24 (6-20) Glucose Level 84 mg/dL (70-99) Calcium Level 8.9 mg/dL (8.5-10.1) Magnesium Level 2.2 mg/dL (1.8-2.4) Total Bilirubin 0.6 mg/dL (0.2-1.0) Aspartate Amino Transf (AST/SGOT) 32 U/L (15-37) Alanine Aminotransferase (ALT/SGPT) 49 U/L (16-63) Alkaline Phosphatase 71 U/L (46-116) Troponin I Quantitative < 0.017 ng/mL (0.000-0.055) Total Protein 7.4 g/dL (6.4-8.2) Albumin 4.0 g/dL (3.4-5.0) Albumin/Globulin Ratio 1.2 (1.0-1.7) Thyroid Stimulating Hormone (TSH) 2.210 uIU/mL (0.358-3.74) Laboratory Tests Test 04/14/19 09:50 White Blood Count 4.3 x10^3/uL (4.0-11.0) Red Blood Count 5.02 x10^6/uL (4.30-5.70) Hemoglobin 11.4 g/dL (13.0-17.5) Hematocrit 35.8 % (39.0-53.0) Mean Corpuscular Volume 71 fL (79-100) Mean Corpuscular Hemoglobin 23 pg (25-35) Mean Corpuscular Hemoglobin Concent 32 g/dL (31-37) Red Cell Distribution Width 14.7 % (11.5-14.5) Platelet Count 117 x10^3/uL (140-400) Neutrophils (%) (Auto) 61 % (31-73) Lymphocytes (%) (Auto) 26 % (24-48) Monocytes (%) (Auto) 11 % (0-9) Eosinophils (%) (Auto) 2 % (0-3) Basophils (%) (Auto) 1 % (0-3) Neutrophils # (Auto) 2.6 x10^3/uL (1.8-7.7) Lymphocytes # (Auto) 1.1 x10^3/uL (1.0-4.8) Monocytes # (Auto) 0.5 x10^3/uL (0.0-1.1) Eosinophils # (Auto) 0.1 x10^3/uL (0.0-0.7) Basophils # (Auto) 0.0 x10^3/uL (0.0-0.2) Platelet Estimate Adequate (ADEQUATE) Large Platelets Present Erythrocyte Sedimentation Rate 8 (0-15) Sodium Level 138 mmol/L (136-145) Potassium Level 4.2 mmol/L (3.5-5.1) Chloride Level 101 mmol/L (98-107) Carbon Dioxide Level 26 mmol/L (21-32) Anion Gap 11 (6-14) Blood Urea Nitrogen 26 mg/dL (8-26) Creatinine 1.1 mg/dL (0.7-1.3) Estimated GFR (Cockcroft-Gault) 77.7 BUN/Creatinine Ratio 24 (6-20) Glucose Level 84 mg/dL (70-99) Calcium Level 8.9 mg/dL (8.5-10.1) Magnesium Level 2.2 mg/dL (1.8-2.4) Total Bilirubin 0.6 mg/dL (0.2-1.0) Aspartate Amino Transf (AST/SGOT) 32 U/L (15-37) Alanine Aminotransferase (ALT/SGPT) 49 U/L (16-63) Alkaline Phosphatase 71 U/L (46-116) Troponin I Quantitative < 0.017 ng/mL (0.000-0.055) Total Protein 7.4 g/dL (6.4-8.2) Albumin 4.0 g/dL (3.4-5.0) Albumin/Globulin Ratio 1.2 (1.0-1.7) Thyroid Stimulating Hormone (TSH) 2.210 uIU/mL (0.358-3.74) VTE Prophylaxis Ordered VTE Prophylaxis Devices: No VTE Pharmacological Prophylaxi: Yes Assessment/Plan Assessment/Plan chest pain with neck and arm numbness, angina, r/o ACS, consult CV, htn, poor control, add b-keiko check echo to eval for valvular or CHF, he has new exercise introlerance obese, BMI 31, heavily muscled for his age, LOIDA VAN MD Apr 14, 2019 14:28
[2019-04-14] MEDS ORDERED: METOPROLOL TART IMMED RELEASE 50 MG TABLET. PO ONE (14:30)
[2019-04-14] MEDS: ASPIRIN CHEWABLE 81 MG TABLET. PO SCH (15:27)
[2019-04-14] MEDS: CYCLOBENZAPRINE 10 MG TABLET. PO SCH ×2 (15:28→20:36)
[2019-04-14 16:35] VITALS: BP 165/93
[2019-04-14 19:07] VITALS: BP 119/61
[2019-04-14] MEDS: METOPROLOL TART IMMED RELEASE 25 MG TABLET. PO SCH (20:36)
[2019-04-14 21:25] LABS: BILIRUBIN,URINE NEGATIVE (NEG); CLARITY,URINE CLEAR; COLOR,URINE YELLOW; NITRITE,URINE NEGATIVE (NEG); PH,URINE 5.5; PROTEIN,URINE NEGATIVE (NEG-TRACE)
[2019-04-14 21:46] LABS: BACTERIA,URINE 0 /HPF (0-FEW); RBC,URINE 0 /HPF (0-2); WBC,URINE 0 /HPF (0-4)
[2019-04-14 22:42] VITALS: BP 112/57
[2019-04-15 02:39] VITALS: BP 108/49
[2019-04-15] MEDS ORDERED: MORPHINE SULFATE 2 MG/ML VIAL. IV PRN (04:30)
[2019-04-15] MEDS: CYCLOBENZAPRINE 10 MG TABLET. PO SCH ×3 (04:44→21:02)
[2019-04-15 06:06] LABS: BASO % 1 % (0-3); EOS # 0.1 x10^3/uL (0.0-0.7); EOS % 3 % (0-3); HEMATOCRIT 37.7 % (39.0-53.0); LYMPH # 1.2 x10^3/uL (1.0-4.8); LYMPH % 27 % (24-48); MEAN CORPUSCULAR HEMOGLOBIN 23 pg (25-35); MEAN CORPUSCULAR HGB CONC 32 g/dL (31-37); MEAN CORPUSCULAR VOLUME 72 fL (79-100); MONO # 0.5 x10^3/uL (0.0-1.1); MONO % 11 % (0-9); NEUT # 2.8 x10^3/uL (1.8-7.7); NEUT % 60 % (31-73); PLATELET COUNT 93 x10^3/uL (140-400); RED BLOOD COUNT 5.27 x10^6/uL (4.30-5.70); WHITE BLOOD COUNT 4.7 x10^3/uL (4.0-11.0)
[2019-04-15 06:50] LABS: ALBUMIN 3.6 g/dL (3.4-5.0); ALBUMIN/GLOBULIN RATIO 1.2 (1.0-1.7); CALCIUM 8.7 mg/dL (8.5-10.1); CREATININE 1.2 mg/dL (0.7-1.3); GFR 70.3; POTASSIUM 4.8 mmol/L (3.5-5.1); TOTAL BILIRUBIN 0.3 mg/dL (0.2-1.0); TOTAL PROTEIN 6.7 g/dL (6.4-8.2)
[2019-04-15 07:00] VITALS: BP 132/77
[2019-04-15 07:04] LABS: CHOLESTEROL/HDL RATIO 4.9
--- NOTE | 2019-04-15 10:43 | PDOC2 ---
CARDIAC CONSULT DATE OF CONSULT Date of Consult DATE: 04/15/19 TIME: 10:38 REASON FOR CONSULT Reason for Consult: Chest pain REFERRING PHYSICIAN Referring Physician: Dennis SOURCE Source: Chart review, Patient HISTORY OF PRESENT ILLNESS HISTORY OF PRESENT ILLNESS This is a pleasant 83 yo male admitted for complains of left side numbness and tingling. He reports that he has been having intermittent numbness and tingling to lateral side of LLE and LUE with some pain to left temporal region neck and shoulder but no JACOBS. Denies any unilateral weakness, dysarthria, visual or auditory symptoms. Denies any ESPINOZA nor exertional CP. He has been in ED multiple times for the same issue and each time he is noted with uncontrolled HTN. Verbalized compliance with his medications but he does not take his BP regularly and sometimes just goes to [facility] to check [facility] and the last it was checked was high but could not tell me how high. Denies any recent falls or any injury. Denies any heavy lifting recently or MVA. Negative for SLR and spurling test. He is not taking any statin as he could not remember this. Otherwise he is not known for any past CVA. His chest pain is right side and felt prickly but not severe and alleviated somewhat when laying to his right side. No n/v/diaphoresis and no complains of palpitations. PAST MEDICAL HISTORY Cardiovascular: HTN, Hyperlipidemia Pulmonary: No pertinent hx CENTRAL NERVOUS SYSTEM: Other (left facial paresthesia) GI: No pertinent hx Heme/Onc: Anemia NOS Hepatobiliary: No pertinent hx Psych: No pertinent hx Musculoskeletal: Osteoarthritis Rheumatologic: No pertinent hx Infectious disease: No pertinent hx ENT: No pertinent hx Renal/: No pertinent hx Endocrine: No pertinent hx Dermatology: No pertinent hx PAST SURGICAL HISTORY Past Surgical History: No pertinent history FAMILY HISTORY Family History noncontributory SOCIAL HISTORY Smoke: No ALCOHOL: none Drugs: None Lives: Alone CURRENT MEDICATIONS CURRENT MEDICATIONS Current Medications Medications (Trade) Dose Ordered Sig/Stacy Route PRN Reason Start Time Stop Time Status Last Admin Dose Admin Morphine Sulfate (Morphine Sulfate) 4 mg 1X ONCE IV 04/14/19 14:00 04/14/19 14:01 DC 04/14/19 14:10 Ondansetron HCl (Zofran) 4 mg 1X ONCE IVP 04/14/19 14:00 04/14/19 14:01 DC 04/14/19 14:09 Metoprolol Tartrate (Lopressor) 50 mg 1X ONCE PO 04/14/19 14:30 04/14/19 14:31 DC 04/14/19 15:29 Metoprolol Tartrate (Lopressor) 25 mg BID PO 04/14/19 21:00 04/14/19 20:36 Aspirin (Children'S Aspirin) 81 mg DAILY PO 04/14/19 15:00 04/14/19 15:27 Cyclobenzaprine HCl (Flexeril) 10 mg TID PO 04/14/19 15:00 04/15/19 04:44 ALLERGIES ALLERGIES: Coded Allergies: No Known Drug Allergies (Unverified , 09/22/18) ROS Review of System 14 point ROS evaluated with pertinent positives noted per HPI PHYSICAL EXAM General: Alert, Oriented X3, Cooperative, No acute distress HEENT: Atraumatic, Mucous membr. moist/pink Lungs: Clear to auscultation, Normal air movement Heart: Regular rate (SR), Normal S1, Normal S2, No murmurs Abdomen: Soft, No tenderness Extremities: No cyanosis, No edema Skin: No breakdown, No significant lesion Neuro: Normal speech, Sensation intact Psych/Mental Status: Mental status NL, Mood NL MUSCULOSKELETAL: Osteoarthritic changes both hands VITALS/I&O VITALS/I&O: Vital Signs Date Time Temp Pulse Resp B/P (MAP) Pulse Ox O2 Delivery O2 Flow Rate FiO2 04/15/19 08:00 Room Air 04/15/19 07:00 97.7 73 18 132/77 (95) 98 97.7 I & O 04/14/19 04/14/19 04/15/19 15:00 23:00 07:00 Intake Total 0 ml Output Total 250 ml Balance -250 ml 0 ml LABS Lab: Laboratory Tests Test 04/14/19 20:45 04/15/19 05:00 Urine Collection Type Unknown Urine Color Yellow Urine Clarity Clear Urine pH 5.5 Urine Specific [place] 1.020 Urine Protein Negative mg/dL (NEG-TRACE) Urine Glucose (UA) Negative mg/dL (NEG) Urine Ketones (Stick) Negative mg/dL (NEG) Urine Blood Negative (NEG) Urine Nitrite Negative (NEG) Urine Bilirubin Negative (NEG) Urine Urobilinogen Dipstick 1.0 mg/dL (0.2 mg/dL) Urine Leukocyte Esterase Negative (NEG) Urine RBC 0 /HPF (0-2) Urine WBC 0 /HPF (0-4) Urine Bacteria 0 /HPF (0-FEW) Urine Mucus Marked /LPF White Blood Count 4.7 x10^3/uL (4.0-11.0) Red Blood Count 5.27 x10^6/uL (4.30-5.70) Hemoglobin 12.0 g/dL (13.0-17.5) L Hematocrit 37.7 % (39.0-53.0) L Mean Corpuscular Volume 72 fL (79-100) L Mean Corpuscular Hemoglobin 23 pg (25-35) L Mean Corpuscular Hemoglobin Concent 32 g/dL (31-37) Red Cell Distribution Width 15.0 % (11.5-14.5) H Platelet Count 93 x10^3/uL (140-400) L Neutrophils (%) (Auto) 60 % (31-73) Lymphocytes (%) (Auto) 27 % (24-48) Monocytes (%) (Auto) 11 % (0-9) H Eosinophils (%) (Auto) 3 % (0-3) Basophils (%) (Auto) 1 % (0-3) Neutrophils # (Auto) 2.8 x10^3/uL (1.8-7.7) Lymphocytes # (Auto) 1.2 x10^3/uL (1.0-4.8) Monocytes # (Auto) 0.5 x10^3/uL (0.0-1.1) Eosinophils # (Auto) 0.1 x10^3/uL (0.0-0.7) Basophils # (Auto) 0.0 x10^3/uL (0.0-0.2) Sodium Level 137 mmol/L (136-145) Potassium Level 4.8 mmol/L (3.5-5.1) Chloride Level 103 mmol/L (98-107) Carbon Dioxide Level 27 mmol/L (21-32) Anion Gap 7 (6-14) Blood Urea Nitrogen 23 mg/dL (8-26) Creatinine 1.2 mg/dL (0.7-1.3) Estimated GFR (Cockcroft-Gault) 70.3 BUN/Creatinine Ratio 19 (6-20) Glucose Level 100 mg/dL (70-99) H Calcium Level 8.7 mg/dL (8.5-10.1) Iron Level 30 ug/dL (65-175) L Total Iron Binding Capacity 223 ug/dL (250-450) L Iron Saturation 13 % (15-34) L Total Bilirubin 0.3 mg/dL (0.2-1.0) Aspartate Amino Transferase (AST) 29 U/L (15-37) Alanine Aminotransferase (ALT) 49 U/L (16-63) Alkaline Phosphatase 69 U/L (46-116) Troponin I Quantitative < 0.017 ng/mL (0.000-0.055) Total Protein 6.7 g/dL (6.4-8.2) Albumin 3.6 g/dL (3.4-5.0) Albumin/Globulin Ratio 1.2 (1.0-1.7) Triglycerides Level 69 mg/dL (0-150) Cholesterol Level 161 mg/dL (0-200) LDL Cholesterol, Calculated 114 mg/dL (0-100) H VLDL Cholesterol, Calculated 14 mg/dL (0-40) Non-HDL Cholesterol Calculated 128 mg/dL (0-129) HDL Cholesterol 33 mg/dL (40-60) L Cholesterol/HDL Ratio 4.9 Laboratory Tests 04/15/19 05:00 Laboratory Tests 04/15/19 05:00 ECHOCARDIOGRAM ECHOCARDIOGRAM <Conclusion> The left ventricular systolic function is normal. The Ejection Fraction is 55-60%. There is normal LV segmental wall motion. Transmitral Doppler flow pattern is Grade I-abnormal relaxation pattern. Trace mitral regurgitation. Trace tricuspid regurgitation. The PA pressure was estimated at 29 mmHg. There is no evidence of significant pericardial effusion. DATE: 09/23/18 1031 ASSESSMENT/PLAN ASSESSMENT/PLAN 1. Atypical chest pain: trops nml, no acute changes to EKG. doubt ACS possibly MSK 2. Left side paresthesia: radiculopathy? vs HTN induced encephalopathy 3. Accelerated HTN: highest SBP at 195, possibly from inadequate dosing 5. HLP: not on goal 6. Chronic thrombocytopenia: unknown cause Recommendations 1. Will consider for outpt stress test if chest pain continues 2. lipids and will optimize statin 3. Continue home BP regimen. monitor BP trend. HBPM bid for the next week and to follow up in office. Discussed with pt significantly and he will buy his own BP device 4. ASA 5. ESR and consult neurology 6. will need referral to hematology 7. Dietitian for DASH diet BRENNAN ELL[employer] Apr 15, 2019 10:43
--- NOTE | 2019-04-15 10:46 | PDOC ---
PROGRESS NOTES Chief Complaint Chief Complaint Chest pain Neck and arm numbness, angina, r/o ACS, consult CV, HTN emergency - DBP 114 with poor control, add b-keiko obese, BMI 31, heavily muscled for his age, History of Present Illness History of Present Illness Mr Gordon is an 83 yo male admitted for complains of left side numbness and tingling. He reports that he has been having intermittent numbness and tingling to lateral side of LLE and LUE with some pain to left temporal region neck and shoulder but no JACOBS. Denies any unilateral weakness, dysarthria, visual or auditory symptoms. Denies any ESPINOZA nor exertional CP. He has been in ED multiple times for the same issue and each time he is noted with uncontrolled HTN Blood pressure of 195/114. He is feeling better today with blood pressure reduced. Cardiology was consulted, and they have asked neurology to see. 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 He is asking when he can leave. Vitals Vitals Vital Signs Date Time Temp Pulse Resp B/P (MAP) Pulse Ox O2 Delivery O2 Flow Rate FiO2 04/15/19 08:00 Room Air 04/15/19 07:00 97.7 73 18 132/77 (95) 98 97.7 Physical Exam General: Alert, Oriented X3, Cooperative, No acute distress Abdomen: Normal bowel sounds, Soft, No tenderness Extremities: No cyanosis, No edema, Normal pulses Skin: No rashes, No breakdown, No significant lesion Labs LABS Laboratory Tests Test 04/14/19 20:45 04/15/19 05:00 Urine Collection Type Unknown Urine Color Yellow Urine Clarity Clear Urine pH 5.5 Urine Specific [place] 1.020 Urine Protein Negative mg/dL (NEG-TRACE) Urine Glucose (UA) Negative mg/dL (NEG) Urine Ketones (Stick) Negative mg/dL (NEG) Urine Blood Negative (NEG) Urine Nitrite Negative (NEG) Urine Bilirubin Negative (NEG) Urine Urobilinogen Dipstick 1.0 mg/dL (0.2 mg/dL) Urine Leukocyte Esterase Negative (NEG) Urine RBC 0 /HPF (0-2) Urine WBC 0 /HPF (0-4) Urine Bacteria 0 /HPF (0-FEW) Urine Mucus Marked /LPF White Blood Count 4.7 x10^3/uL (4.0-11.0) Red Blood Count 5.27 x10^6/uL (4.30-5.70) Hemoglobin 12.0 g/dL (13.0-17.5) Hematocrit 37.7 % (39.0-53.0) Mean Corpuscular Volume 72 fL (79-100) Mean Corpuscular Hemoglobin 23 pg (25-35) Mean Corpuscular Hemoglobin Concent 32 g/dL (31-37) Red Cell Distribution Width 15.0 % (11.5-14.5) Platelet Count 93 x10^3/uL (140-400) Neutrophils (%) (Auto) 60 % (31-73) Lymphocytes (%) (Auto) 27 % (24-48) Monocytes (%) (Auto) 11 % (0-9) Eosinophils (%) (Auto) 3 % (0-3) Basophils (%) (Auto) 1 % (0-3) Neutrophils # (Auto) 2.8 x10^3/uL (1.8-7.7) Lymphocytes # (Auto) 1.2 x10^3/uL (1.0-4.8) Monocytes # (Auto) 0.5 x10^3/uL (0.0-1.1) Eosinophils # (Auto) 0.1 x10^3/uL (0.0-0.7) Basophils # (Auto) 0.0 x10^3/uL (0.0-0.2) Sodium Level 137 mmol/L (136-145) Potassium Level 4.8 mmol/L (3.5-5.1) Chloride Level 103 mmol/L (98-107) Carbon Dioxide Level 27 mmol/L (21-32) Anion Gap 7 (6-14) Blood Urea Nitrogen 23 mg/dL (8-26) Creatinine 1.2 mg/dL (0.7-1.3) Estimated GFR (Cockcroft-Gault) 70.3 BUN/Creatinine Ratio 19 (6-20) Glucose Level 100 mg/dL (70-99) Calcium Level 8.7 mg/dL (8.5-10.1) Iron Level 30 ug/dL (65-175) Total Iron Binding Capacity 223 ug/dL (250-450) Iron Saturation 13 % (15-34) Total Bilirubin 0.3 mg/dL (0.2-1.0) Aspartate Amino Transf (AST/SGOT) 29 U/L (15-37) Alanine Aminotransferase (ALT/SGPT) 49 U/L (16-63) Alkaline Phosphatase 69 U/L (46-116) Troponin I Quantitative < 0.017 ng/mL (0.000-0.055) Total Protein 6.7 g/dL (6.4-8.2) Albumin 3.6 g/dL (3.4-5.0) Albumin/Globulin Ratio 1.2 (1.0-1.7) Triglycerides Level 69 mg/dL (0-150) Cholesterol Level 161 mg/dL (0-200) LDL Cholesterol, Calculated 114 mg/dL (0-100) VLDL Cholesterol, Calculated 14 mg/dL (0-40) Non-HDL Cholesterol Calculated 128 mg/dL (0-129) HDL Cholesterol 33 mg/dL (40-60) Cholesterol/HDL Ratio 4.9 Assessment and Plan Assessmemt and Plan Problems Medical Problems: (1) Chest pain at rest Status: Acute (2) Left sided numbness Status: Acute Comment Review of Relevant I have reviewed the following items hailey (where applicable) has been applied. Labs Laboratory Tests Test 04/14/19 09:50 04/14/19 20:45 04/15/19 05:00 White Blood Count 4.3 x10^3/uL (4.0-11.0) 4.7 x10^3/uL (4.0-11.0) Red Blood Count 5.02 x10^6/uL (4.30-5.70) 5.27 x10^6/uL (4.30-5.70) Hemoglobin 11.4 g/dL (13.0-17.5) 12.0 g/dL (13.0-17.5) Hematocrit 35.8 % (39.0-53.0) 37.7 % (39.0-53.0) Mean Corpuscular Volume 71 fL (79-100) 72 fL (79-100) Mean Corpuscular Hemoglobin 23 pg (25-35) 23 pg (25-35) Mean Corpuscular Hemoglobin Concent 32 g/dL (31-37) 32 g/dL (31-37) Red Cell Distribution Width 14.7 % (11.5-14.5) 15.0 % (11.5-14.5) Platelet Count 117 x10^3/uL (140-400) 93 x10^3/uL (140-400) Neutrophils (%) (Auto) 61 % (31-73) 60 % (31-73) Lymphocytes (%) (Auto) 26 % (24-48) 27 % (24-48) Monocytes (%) (Auto) 11 % (0-9) 11 % (0-9) Eosinophils (%) (Auto) 2 % (0-3) 3 % (0-3) Basophils (%) (Auto) 1 % (0-3) 1 % (0-3) Neutrophils # (Auto) 2.6 x10^3/uL (1.8-7.7) 2.8 x10^3/uL (1.8-7.7) Lymphocytes # (Auto) 1.1 x10^3/uL (1.0-4.8) 1.2 x10^3/uL (1.0-4.8) Monocytes # (Auto) 0.5 x10^3/uL (0.0-1.1) 0.5 x10^3/uL (0.0-1.1) Eosinophils # (Auto) 0.1 x10^3/uL (0.0-0.7) 0.1 x10^3/uL (0.0-0.7) Basophils # (Auto) 0.0 x10^3/uL (0.0-0.2) 0.0 x10^3/uL (0.0-0.2) Platelet Estimate Adequate (ADEQUATE) Large Platelets Present Erythrocyte Sedimentation Rate 8 (0-15) Sodium Level 138 mmol/L (136-145) 137 mmol/L (136-145) Potassium Level 4.2 mmol/L (3.5-5.1) 4.8 mmol/L (3.5-5.1) Chloride Level 101 mmol/L (98-107) 103 mmol/L (98-107) Carbon Dioxide Level 26 mmol/L (21-32) 27 mmol/L (21-32) Anion Gap 11 (6-14) 7 (6-14) Blood Urea Nitrogen 26 mg/dL (8-26) 23 mg/dL (8-26) Creatinine 1.1 mg/dL (0.7-1.3) 1.2 mg/dL (0.7-1.3) Estimated GFR (Cockcroft-Gault) 77.7 70.3 BUN/Creatinine Ratio 24 (6-20) 19 (6-20) Glucose Level 84 mg/dL (70-99) 100 mg/dL (70-99) Calcium Level 8.9 mg/dL (8.5-10.1) 8.7 mg/dL (8.5-10.1) Magnesium Level 2.2 mg/dL (1.8-2.4) Total Bilirubin 0.6 mg/dL (0.2-1.0) 0.3 mg/dL (0.2-1.0) Aspartate Amino Transf (AST/SGOT) 32 U/L (15-37) 29 U/L (15-37) Alanine Aminotransferase (ALT/SGPT) 49 U/L (16-63) 49 U/L (16-63) Alkaline Phosphatase 71 U/L (46-116) 69 U/L (46-116) Troponin I Quantitative < 0.017 ng/mL (0.000-0.055) < 0.017 ng/mL (0.000-0.055) XM-Mmo-K-Type Natriuretic Peptide 147 pg/mL (0-449) Total Protein 7.4 g/dL (6.4-8.2) 6.7 g/dL (6.4-8.2) Albumin 4.0 g/dL (3.4-5.0) 3.6 g/dL (3.4-5.0) Albumin/Globulin Ratio 1.2 (1.0-1.7) 1.2 (1.0-1.7) Thyroid Stimulating Hormone (TSH) 2.210 uIU/mL (0.358-3.74) Urine Collection Type Unknown Urine Color Yellow Urine Clarity Clear Urine pH 5.5 Urine Specific [place] 1.020 Urine Protein Negative mg/dL (NEG-TRACE) Urine Glucose (UA) Negative mg/dL (NEG) Urine Ketones (Stick) Negative mg/dL (NEG) Urine Blood Negative (NEG) Urine Nitrite Negative (NEG) Urine Bilirubin Negative (NEG) Urine Urobilinogen Dipstick 1.0 mg/dL (0.2 mg/dL) Urine Leukocyte Esterase Negative (NEG) Urine RBC 0 /HPF (0-2) Urine WBC 0 /HPF (0-4) Urine Bacteria 0 /HPF (0-FEW) Urine Mucus Marked /LPF Iron Level 30 ug/dL (65-175) Total Iron Binding Capacity 223 ug/dL (250-450) Iron Saturation 13 % (15-34) Triglycerides Level 69 mg/dL (0-150) Cholesterol Level 161 mg/dL (0-200) LDL Cholesterol, Calculated 114 mg/dL (0-100) VLDL Cholesterol, Calculated 14 mg/dL (0-40) Non-HDL Cholesterol Calculated 128 mg/dL (0-129) HDL Cholesterol 33 mg/dL (40-60) Cholesterol/HDL Ratio 4.9 Laboratory Tests Test 04/14/19 20:45 04/15/19 05:00 Urine Collection Type Unknown Urine Color Yellow Urine Clarity Clear Urine pH 5.5 Urine Specific [place] 1.020 Urine Protein Negative mg/dL (NEG-TRACE) Urine Glucose (UA) Negative mg/dL (NEG) Urine Ketones (Stick) Negative mg/dL (NEG) Urine Blood Negative (NEG) Urine Nitrite Negative (NEG) Urine Bilirubin Negative (NEG) Urine Urobilinogen Dipstick 1.0 mg/dL (0.2 mg/dL) Urine Leukocyte Esterase Negative (NEG) Urine RBC 0 /HPF (0-2) Urine WBC 0 /HPF (0-4) Urine Bacteria 0 /HPF (0-FEW) Urine Mucus Marked /LPF White Blood Count 4.7 x10^3/uL (4.0-11.0) Red Blood Count 5.27 x10^6/uL (4.30-5.70) Hemoglobin 12.0 g/dL (13.0-17.5) Hematocrit 37.7 % (39.0-53.0) Mean Corpuscular Volume 72 fL (79-100) Mean Corpuscular Hemoglobin 23 pg (25-35) Mean Corpuscular Hemoglobin Concent 32 g/dL (31-37) Red Cell Distribution Width 15.0 % (11.5-14.5) Platelet Count 93 x10^3/uL (140-400) Neutrophils (%) (Auto) 60 % (31-73) Lymphocytes (%) (Auto) 27 % (24-48) Monocytes (%) (Auto) 11 % (0-9) Eosinophils (%) (Auto) 3 % (0-3) Basophils (%) (Auto) 1 % (0-3) Neutrophils # (Auto) 2.8 x10^3/uL (1.8-7.7) Lymphocytes # (Auto) 1.2 x10^3/uL (1.0-4.8) Monocytes # (Auto) 0.5 x10^3/uL (0.0-1.1) Eosinophils # (Auto) 0.1 x10^3/uL (0.0-0.7) Basophils # (Auto) 0.0 x10^3/uL (0.0-0.2) Sodium Level 137 mmol/L (136-145) Potassium Level 4.8 mmol/L (3.5-5.1) Chloride Level 103 mmol/L (98-107) Carbon Dioxide Level 27 mmol/L (21-32) Anion Gap 7 (6-14) Blood Urea Nitrogen 23 mg/dL (8-26) Creatinine 1.2 mg/dL (0.7-1.3) Estimated GFR (Cockcroft-Gault) 70.3 BUN/Creatinine Ratio 19 (6-20) Glucose Level 100 mg/dL (70-99) Calcium Level 8.7 mg/dL (8.5-10.1) Iron Level 30 ug/dL (65-175) Total Iron Binding Capacity 223 ug/dL (250-450) Iron Saturation 13 % (15-34) Total Bilirubin 0.3 mg/dL (0.2-1.0) Aspartate Amino Transf (AST/SGOT) 29 U/L (15-37) Alanine Aminotransferase (ALT/SGPT) 49 U/L (16-63) Alkaline Phosphatase 69 U/L (46-116) Troponin I Quantitative < 0.017 ng/mL (0.000-0.055) Total Protein 6.7 g/dL (6.4-8.2) Albumin 3.6 g/dL (3.4-5.0) Albumin/Globulin Ratio 1.2 (1.0-1.7) Triglycerides Level 69 mg/dL (0-150) Cholesterol Level 161 mg/dL (0-200) LDL Cholesterol, Calculated 114 mg/dL (0-100) VLDL Cholesterol, Calculated 14 mg/dL (0-40) Non-HDL Cholesterol Calculated 128 mg/dL (0-129) HDL Cholesterol 33 mg/dL (40-60) Cholesterol/HDL Ratio 4.9 Medications Current Medications Morphine Sulfate (Morphine Sulfate) 4 mg 1X ONCE IV Last administered on 04/14/19at 14:10; Start 04/14/19 at 14:00; Stop 04/14/19 at 14:01; Status DC Ondansetron HCl (Zofran) 4 mg 1X ONCE IVP Last administered on 04/14/19at 14:09; Start 04/14/19 at 14:00; Stop 04/14/19 at 14:01; Status DC Metoprolol Tartrate (Lopressor) 50 mg 1X ONCE PO Last administered on 04/14/19at 15:29; Start 04/14/19 at 14:30; Stop 04/14/19 at 14:31; Status DC Metoprolol Tartrate (Lopressor) 25 mg BID PO Last administered on 04/14/19at 20:36; Start 04/14/19 at 21:00 Aspirin (Children'S Aspirin) 81 mg DAILY PO Last administered on 04/14/19at 15:27; Start 04/14/19 at 15:00 Cyclobenzaprine HCl (Flexeril) 10 mg TID PO Last administered on 04/15/19at 04:44; Start 04/14/19 at 15:00 Losartan Potassium (Cozaar) 50 mg DAILY PO ; Start 04/15/19 at 09:00 Morphine Sulfate (Morphine Sulfate) 2 mg PRN Q2HR PRN IV PAIN; Start 04/15/19 at 04:30 Active Scripts Active Cyclobenzaprine Hcl 10 Mg Tablet 1 Tab PO TID Medrol (Methylprednisolone) 4 Mg Tab.ds.pk 1 Pkg PO UD Losartan Potassium 50 Mg Tablet 50 Mg PO DAILY Reported Aspirin 81 Mg Tab.chew 1 Tab PO DAILY Losartan Potassium 50 Mg Tablet 50 Mg PO DAILY Vitals/I & O Vital Sign - Last 24 Hours 04/14/19 04/14/19 04/14/19 04/14/19 11:00 11:30 12:09 13:02 Pulse 74 74 74 73 Pulse Ox 97 97 100 98 04/14/19 04/14/19 04/14/19 04/14/19 14:02 14:10 14:32 14:40 Pulse 78 74 Resp 18 18 Pulse Ox 98 98 O2 Delivery Room Air 04/14/19 04/14/19 04/14/19 04/14/19 15:02 15:29 16:02 16:35 Temp 97.5 97.5 Pulse 72 80 72 79 Resp 18 B/P (MAP) 180/90 165/93 (117) Pulse Ox 96 97 98 O2 Delivery Room Air 04/14/19 04/14/19 04/14/19 04/14/19 19:07 20:00 20:36 22:42 Temp 97.9 98.0 97.9 98.0 Pulse 85 85 79 Resp 18 18 B/P (MAP) 119/61 (80) 119/61 112/57 (75) Pulse Ox 97 98 O2 Delivery Room Air Room Air Room Air 04/15/19 04/15/19 04/15/19 02:39 07:00 08:00 Temp 97.9 97.7 97.9 97.7 Pulse 73 73 Resp 18 B/P (MAP) 108/49 (68) 132/77 (95) Pulse Ox 94 98 O2 Delivery Room Air Room Air Room Air Intake and Output 04/14/19 04/14/19 04/15/19 15:00 23:00 07:00 Intake Total 0 ml Output Total 250 ml Balance -250 ml 0 ml QUINN MCQUEEN MD Apr 15, 2019 10:46
[2019-04-15 11:00] VITALS: BP 141/83
[2019-04-15] MEDS: ASPIRIN CHEWABLE 81 MG TABLET. PO SCH (11:10)
[2019-04-15] MEDS: LOSARTAN POTASSIUM 50 MG TABLET. PO SCH (11:12)
[2019-04-15] MEDS: METOPROLOL TART IMMED RELEASE 25 MG TABLET. PO SCH ×2 (11:13→21:02)
--- NOTE | 2019-04-15 12:50 | NUR ---
SS following for discharge planning. SS reviewed pt chart. Pt is self pay pt. HCFS following for self pay status. Pt is from home and is currently on room air. SS will continue to follow for discharge planning.
--- NOTE | 2019-04-15 13:54 | PDOC2 ---
NEUROLOGY CONSULT Date of Admission Date of Admission DATE: 04/15/19 TIME: 13:53 Reason for Consult Reason for Consult: left-sided paresthesias Referring Physician Referring Physician: Dr. Collins Mr. Del Toro Source Source: Caregiver (), Chart review, Patient History of Present Illness History of Present Illness The patient is an 83-year-old right-handed male who has had repeated episodes of numbness on the entire left side of his body, face, arm, and leg. He was here in September for his second episode. His blood pressure was high. MRI of the brain and carotid Doppler studies as reviewed below, were negative. Always gets better after his blood pressure comes down. There is no headache or history of migraine. He does not have other symptoms such as cognitive change, visual problems, weakness, dysarthria, dysphagia, or diplopia. He again had the left- sided numbness yesterday and was found to have a blood pressure of 195/114. He is feeling better today with blood pressure reduced. Past Medical History Cardiovascular: HTN Past Surgical History Past Surgical History: No pertinent history Family History Family History: No pertinent hx Social History Social History , no tobacco or alcohol, eats only organic food Current Medications Current Medications Current Medications Morphine Sulfate (Morphine Sulfate) 4 mg 1X ONCE IV Last administered on 04/14/19at 14:10; Start 04/14/19 at 14:00; Stop 04/14/19 at 14:01; Status DC Ondansetron HCl (Zofran) 4 mg 1X ONCE IVP Last administered on 04/14/19at 14:09; Start 04/14/19 at 14:00; Stop 04/14/19 at 14:01; Status DC Metoprolol Tartrate (Lopressor) 50 mg 1X ONCE PO Last administered on 04/14/19at 15:29; Start 04/14/19 at 14:30; Stop 04/14/19 at 14:31; Status DC Metoprolol Tartrate (Lopressor) 25 mg BID PO Last administered on 04/15/19at 11:13; Start 04/14/19 at 21:00 Aspirin (Children'S Aspirin) 81 mg DAILY PO Last administered on 04/15/19at 11:10; Start 04/14/19 at 15:00 Cyclobenzaprine HCl (Flexeril) 10 mg TID PO Last administered on 04/15/19at 04:44; Start 04/14/19 at 15:00 Losartan Potassium (Cozaar) 50 mg DAILY PO Last administered on 04/15/19at 11:12; Start 04/15/19 at 09:00 Morphine Sulfate (Morphine Sulfate) 2 mg PRN Q2HR PRN IV PAIN; Start 04/15/19 at 04:30 Atorvastatin Calcium (Lipitor) 20 mg QHS PO ; Start 04/15/19 at 21:00 Active Scripts Active Cyclobenzaprine Hcl 10 Mg Tablet 1 Tab PO TID Medrol (Methylprednisolone) 4 Mg Tab.ds.pk 1 Pkg PO UD Losartan Potassium 50 Mg Tablet 50 Mg PO DAILY Reported Aspirin 81 Mg Tab.chew 1 Tab PO DAILY Losartan Potassium 50 Mg Tablet 50 Mg PO DAILY Allergies Allergies: Coded Allergies: No Known Drug Allergies (Unverified , 09/22/18) ROS Review of System Negative for fever, chills, weight loss, shortness of breath, chest pain, indigestion, hematochezia, melena, and dysuria. He has some constipation. Full 14-point review of systems is negative. Physical Exam Physical Examination General: Well-developed, well-nourished black male in no acute distress HEENT: Normocephalic andatraumatic. Temporal arteriespulsatile and nontender. Neck: Supple without bruit, no meningismus Musculoskeletal: Stability:see neurologic. Gait exam:see neurologic. Tone:see neurologic.Strength:see neurologic. Neurological: Mental Status:intact, orientation, memory, attention span/concentration, language, fund of knowledge normal. Cranial Nerves:Pupils equal and reactive to light, extraocular movements areintact, visual campbell are full to confrontation. Facial sensation is normal. There is no facial asymmetry. Vestibulo-ocular reflex is intact. Palate elevates and tongue protrudes in midline. All other cranial related problems are negative except as mentioned before.Reflexes:2+ and symmetric with flexor plantar responses. Motor:5/5 strength with normal tone and bulk. Coordination:Finger-nose finger and leqc-ih-xfbq testing are normal. Rapid alternating movements and fine finger mov ements are intact. Gait:Normal, off on tandem. Sensory:Normal pinprick, vibration, light touch, proprioception. Vitals VITALS Vital Signs Date Time Temp Pulse Resp B/P (MAP) Pulse Ox O2 Delivery O2 Flow Rate FiO2 12/12/19 11:13 78 141/83 04/15/19 11:00 97.4 18 97 Room Air 97.4 Labs Labs Laboratory Tests Test 04/14/19 09:50 04/14/19 20:45 04/15/19 05:00 White Blood Count 4.3 x10^3/uL (4.0-11.0) 4.7 x10^3/uL (4.0-11.0) Red Blood Count 5.02 x10^6/uL (4.30-5.70) 5.27 x10^6/uL (4.30-5.70) Hemoglobin 11.4 g/dL (13.0-17.5) 12.0 g/dL (13.0-17.5) Hematocrit 35.8 % (39.0-53.0) 37.7 % (39.0-53.0) Mean Corpuscular Volume 71 fL (79-100) 72 fL (79-100) Mean Corpuscular Hemoglobin 23 pg (25-35) 23 pg (25-35) Mean Corpuscular Hemoglobin Concent 32 g/dL (31-37) 32 g/dL (31-37) Red Cell Distribution Width 14.7 % (11.5-14.5) 15.0 % (11.5-14.5) Platelet Count 117 x10^3/uL (140-400) 93 x10^3/uL (140-400) Neutrophils (%) (Auto) 61 % (31-73) 60 % (31-73) Lymphocytes (%) (Auto) 26 % (24-48) 27 % (24-48) Monocytes (%) (Auto) 11 % (0-9) 11 % (0-9) Eosinophils (%) (Auto) 2 % (0-3) 3 % (0-3) Basophils (%) (Auto) 1 % (0-3) 1 % (0-3) Neutrophils # (Auto) 2.6 x10^3/uL (1.8-7.7) 2.8 x10^3/uL (1.8-7.7) Lymphocytes # (Auto) 1.1 x10^3/uL (1.0-4.8) 1.2 x10^3/uL (1.0-4.8) Monocytes # (Auto) 0.5 x10^3/uL (0.0-1.1) 0.5 x10^3/uL (0.0-1.1) Eosinophils # (Auto) 0.1 x10^3/uL (0.0-0.7) 0.1 x10^3/uL (0.0-0.7) Basophils # (Auto) 0.0 x10^3/uL (0.0-0.2) 0.0 x10^3/uL (0.0-0.2) Platelet Estimate Adequate (ADEQUATE) Large Platelets Present Erythrocyte Sedimentation Rate 8 (0-15) Sodium Level 138 mmol/L (136-145) 137 mmol/L (136-145) Potassium Level 4.2 mmol/L (3.5-5.1) 4.8 mmol/L (3.5-5.1) Chloride Level 101 mmol/L (98-107) 103 mmol/L (98-107) Carbon Dioxide Level 26 mmol/L (21-32) 27 mmol/L (21-32) Anion Gap 11 (6-14) 7 (6-14) Blood Urea Nitrogen 26 mg/dL (8-26) 23 mg/dL (8-26) Creatinine 1.1 mg/dL (0.7-1.3) 1.2 mg/dL (0.7-1.3) Estimated GFR (Cockcroft-Gault) 77.7 70.3 BUN/Creatinine Ratio 24 (6-20) 19 (6-20) Glucose Level 84 mg/dL (70-99) 100 mg/dL (70-99) Calcium Level 8.9 mg/dL (8.5-10.1) 8.7 mg/dL (8.5-10.1) Magnesium Level 2.2 mg/dL (1.8-2.4) Total Bilirubin 0.6 mg/dL (0.2-1.0) 0.3 mg/dL (0.2-1.0) Aspartate Amino Transf (AST/SGOT) 32 U/L (15-37) 29 U/L (15-37) Alanine Aminotransferase (ALT/SGPT) 49 U/L (16-63) 49 U/L (16-63) Alkaline Phosphatase 71 U/L (46-116) 69 U/L (46-116) Troponin I Quantitative < 0.017 ng/mL (0.000-0.055) < 0.017 ng/mL (0.000-0.055) RF-Str-K-Type Natriuretic Peptide 147 pg/mL (0-449) Total Protein 7.4 g/dL (6.4-8.2) 6.7 g/dL (6.4-8.2) Albumin 4.0 g/dL (3.4-5.0) 3.6 g/dL (3.4-5.0) Albumin/Globulin Ratio 1.2 (1.0-1.7) 1.2 (1.0-1.7) Thyroid Stimulating Hormone (TSH) 2.210 uIU/mL (0.358-3.74) Urine Collection Type Unknown Urine Color Yellow Urine Clarity Clear Urine pH 5.5 Urine Specific [place] 1.020 Urine Protein Negative mg/dL (NEG-TRACE) Urine Glucose (UA) Negative mg/dL (NEG) Urine Ketones (Stick) Negative mg/dL (NEG) Urine Blood Negative (NEG) Urine Nitrite Negative (NEG) Urine Bilirubin Negative (NEG) Urine Urobilinogen Dipstick 1.0 mg/dL (0.2 mg/dL) Urine Leukocyte Esterase Negative (NEG) Urine RBC 0 /HPF (0-2) Urine WBC 0 /HPF (0-4) Urine Bacteria 0 /HPF (0-FEW) Urine Mucus Marked /LPF Iron Level 30 ug/dL (65-175) Total Iron Binding Capacity 223 ug/dL (250-450) Iron Saturation 13 % (15-34) Triglycerides Level 69 mg/dL (0-150) Cholesterol Level 161 mg/dL (0-200) LDL Cholesterol, Calculated 114 mg/dL (0-100) VLDL Cholesterol, Calculated 14 mg/dL (0-40) Non-HDL Cholesterol Calculated 128 mg/dL (0-129) HDL Cholesterol 33 mg/dL (40-60) Cholesterol/HDL Ratio 4.9 Laboratory Tests Test 04/14/19 20:45 04/15/19 05:00 Urine Collection Type Unknown Urine Color Yellow Urine Clarity Clear Urine pH 5.5 Urine Specific [place] 1.020 Urine Protein Negative mg/dL (NEG-TRACE) Urine Glucose (UA) Negative mg/dL (NEG) Urine Ketones (Stick) Negative mg/dL (NEG) Urine Blood Negative (NEG) Urine Nitrite Negative (NEG) Urine Bilirubin Negative (NEG) Urine Urobilinogen Dipstick 1.0 mg/dL (0.2 mg/dL) Urine Leukocyte Esterase Negative (NEG) Urine RBC 0 /HPF (0-2) Urine WBC 0 /HPF (0-4) Urine Bacteria 0 /HPF (0-FEW) Urine Mucus Marked /LPF White Blood Count 4.7 x10^3/uL (4.0-11.0) Red Blood Count 5.27 x10^6/uL (4.30-5.70) Hemoglobin 12.0 g/dL (13.0-17.5) Hematocrit 37.7 % (39.0-53.0) Mean Corpuscular Volume 72 fL (79-100) Mean Corpuscular Hemoglobin 23 pg (25-35) Mean Corpuscular Hemoglobin Concent 32 g/dL (31-37) Red Cell Distribution Width 15.0 % (11.5-14.5) Platelet Count 93 x10^3/uL (140-400) Neutrophils (%) (Auto) 60 % (31-73) Lymphocytes (%) (Auto) 27 % (24-48) Monocytes (%) (Auto) 11 % (0-9) Eosinophils (%) (Auto) 3 % (0-3) Basophils (%) (Auto) 1 % (0-3) Neutrophils # (Auto) 2.8 x10^3/uL (1.8-7.7) Lymphocytes # (Auto) 1.2 x10^3/uL (1.0-4.8) Monocytes # (Auto) 0.5 x10^3/uL (0.0-1.1) Eosinophils # (Auto) 0.1 x10^3/uL (0.0-0.7) Basophils # (Auto) 0.0 x10^3/uL (0.0-0.2) Sodium Level 137 mmol/L (136-145) Potassium Level 4.8 mmol/L (3.5-5.1) Chloride Level 103 mmol/L (98-107) Carbon Dioxide Level 27 mmol/L (21-32) Anion Gap 7 (6-14) Blood Urea Nitrogen 23 mg/dL (8-26) Creatinine 1.2 mg/dL (0.7-1.3) Estimated GFR (Cockcroft-Gault) 70.3 BUN/Creatinine Ratio 19 (6-20) Glucose Level 100 mg/dL (70-99) Calcium Level 8.7 mg/dL (8.5-10.1) Iron Level 30 ug/dL (65-175) Total Iron Binding Capacity 223 ug/dL (250-450) Iron Saturation 13 % (15-34) Total Bilirubin 0.3 mg/dL (0.2-1.0) Aspartate Amino Transf (AST/SGOT) 29 U/L (15-37) Alanine Aminotransferase (ALT/SGPT) 49 U/L (16-63) Alkaline Phosphatase 69 U/L (46-116) Troponin I Quantitative < 0.017 ng/mL (0.000-0.055) Total Protein 6.7 g/dL (6.4-8.2) Albumin 3.6 g/dL (3.4-5.0) Albumin/Globulin Ratio 1.2 (1.0-1.7) Triglycerides Level 69 mg/dL (0-150) Cholesterol Level 161 mg/dL (0-200) LDL Cholesterol, Calculated 114 mg/dL (0-100) VLDL Cholesterol, Calculated 14 mg/dL (0-40) Non-HDL Cholesterol Calculated 128 mg/dL (0-129) HDL Cholesterol 33 mg/dL (40-60) Cholesterol/HDL Ratio 4.9 Images Images MRI Brain without contrast, 09/23/18 History: Left-sided weakness and numbness Technique: Multiplanar, multisequential noncontrast MR imaging was performed of the brain. Comparison: None Findings: There is mild motion. There is no evidence of recent infarct or cytotoxic edema. The ventricles, sulci, and cisterns are within normal limits in size and configuration. There is no significant midline shift, intraaxial mass effect, or focal abnormal extra-axial fluid collection. There is mild to moderate T2 and FLAIR hyperintense signal abnormality of the supratentorial parenchyma greatest of the parietal and periatrial white matter. There is small old lacunar infarct of the left periatrial white matter. There are a few tiny foci of old microhemorrhage of the bilateral thalami. There is no significant hemosiderin deposition of the brain parenchyma. There is preservation of the major intracranial flow-voids at the skull base. The mastoid air cells are aerated. The cerebellar tonsils are normal in location. There is no significant abnormality of the pineal gland or pituitary gland. There is patchy minimal ethmoid air cell and negligible maxillary sinus mucosal thickening. There is preserved marrow signal of the clivus. Impression: 1. There is no evidence of a recent infarct. Scattered T2 and FLAIR hyperintense signal abnormality of the supratentorial parenchyma bilaterally is nonspecific although most commonly due to chronic microvascular ischemic disease in patient this age. There is small old lacunar infarct left periatrial white matter. There are a few tiny foci of old microhemorrhage of the bilateral thalami. DOPPLER CAROTID BILAT, 09/22/18 Duplex ultrasound carotid arteries. HISTORY: CVA, TIA Duplex ultrasound was used to evaluate the carotid arteries. Real-time imaging, color flow imaging and Doppler were utilized for evaluation. There was no significant plaque at the right carotid bifurcation on the real-time imaging. Peak velocity in the right internal carotid artery was 96 cm/s with an end-diastolic velocity of 23 cm/s and a systolic velocity index of 0.8. There is antegrade flow in the right vertebral. There was minimal plaque at the left carotid bifurcation. Peak velocity in the left internal carotid artery was 74 cm/s with an end-diastolic velocity of 20 cm/s and a systolic velocity index of 0.8. There is antegrade flow in the left vertebral. IMPRESSION: 1. No hemodynamically significant stenosis noted in the carotid arteries. 2. Antegrade flow in each vertebral. Assessment/Plan Assessment/Plan Impression: Stereotyped symptoms of left-sided numbness always related to hypertension and relieved with its resolution, most likely this is hypertensive encephalopathy. I find no evidence of new stroke, intracranial neoplasm, migraine headache, seizure, or intracranial infection. There is a component of neck pain raising the possibility of a cervical radiculopathy and myelopathy, but that would be unlikely to cause one-sided symptoms involving the head as well. Recommendations: I am reluctantly repeating his brain MRI along with a cervical MRI Continue daily aspirin Blood pressure control and workup for hypertension per cardiology. I mentioned to the patient that he may need further renal evaluation, for instance. Thank you for letting me help the patient's care. CAITLYN AMAYA MD Apr 15, 2019 13:53
[2019-04-15 15:00] VITALS: BP 139/69
--- NOTE | 2019-04-15 15:03 | CARD ---
MR#: [id number] Date of Study: 04/15/2019 Ordering Physician: LOIDA VAN, Referring Physician: LOIDA VAN Tech: Jeannette Baker RDCS APPROVED REPORT EXAM: Two-dimensional and M-mode echocardiogram with Doppler and color Doppler. Other Information Quality : Good INDICATION Dyspnea Chest Pain 2D DIMENSIONS RVDd3.5 (2.9-3.5cm)Left Atrium(2D)3.8 (1.6-4.0cm) IVSd1.1 (0.7-1.1cm)Aortic Root(2D)3.4 (2.0-3.7cm) LVDd5.0 (3.9-5.9cm)LVOT Diameter2.5 (1.8-2.4cm) PWd1.1 (0.7-1.1cm)LVDs3.1 (2.5-4.0cm) FS (%) 30.0 %SV77.8 ml LVEF(%)60.0 (>50%) Aortic Valve AoV Peak Julio Cesar.117.5cm/sAoV VTI20.1cm AO Peak GR.5.5mmHgLVOT Peak Julio Cesar.92.0cm/s AO Mean GR.3mmHgAVA (VMAX)3.75cm2 LEONOR (VTI)4.30cm2 Mitral Valve MV E Jcvqdzrh57.1cm/sMV DECEL [id number] MV A Mwezfbzl80.6cm/sE/A Ratio0.6 Tricuspid Valve TR P. [id number]/sRAP [id number] TR Peak Gr.58hlAtJMAQ19ffDa Pulmonary Vein S1 Oleropzn65.6cm/sD2 Izktwlsp74.4cm/s LEFT VENTRICLE The left ventricle is normal size. There is normal left ventricular wall thickness. The left ventricu lar systolic function is normal. The Ejection Fraction is 55-60%. There is normal LV segmental wall m otion. Transmitral Doppler flow pattern is Grade I-abnormal relaxation pattern. RIGHT VENTRICLE The right ventricle is normal size. The right ventricular systolic function is normal. ATRIA The left atrium size is normal. The right atrium size is normal. The interatrial septum is intact wit h no evidence for an atrial septal defect or patent foramen ovale as noted on 2-D or Doppler imaging. AORTIC VALVE The aortic valve is mildly thickened but opens well. Doppler and Color Flow revealed no significant a ortic regurgitation. There is no significant aortic valvular stenosis. MITRAL VALVE The mitral valve is normal in structure and function. There is no evidence of mitral valve prolapse. There is no mitral valve stenosis. Doppler and Color Flow revealed no mitral valve regurgitation note d. TRICUSPID VALVE The tricuspid valve is normal in structure and function. Doppler and Color Flow revealed trace tricus pid regurgitation. The PA pressure was estimated at 20 mmHg. There is no tricuspid valve stenosis. PULMONIC VALVE The pulmonic valve is not well visualized. Doppler and Color Flow revealed no pulmonic valvular regur gitation. There is no pulmonic valvular stenosis. GREAT VESSELS The aortic root is normal in size. The ascending aorta is mildly dilated at 3.6 cm. The IVC is normal in size and collapses >50% with inspiration. PERICARDIAL EFFUSION There is no evidence of significant pericardial effusion. Critical Notification Critical Value: No <Conclusion> The left ventricular systolic function is normal. The Ejection Fraction is 55-60%. There is normal LV segmental wall motion. Transmitral Doppler flow pattern is Grade I-abnormal relaxation pattern. Trace tricuspid regurgitation. There is no evidence of significant pericardial effusion. Signed by : Blayne Christianson, Electronically Approved : 04/15/2019 15:03:34
[2019-04-15] MEDS ORDERED: METO25TA4 PO (15:26)
[2019-04-15] MEDS ORDERED: ATOR20TA58 PO (15:26)
[2019-04-15] MEDS ORDERED: LOSA-73 PO (15:26)
[2019-04-15 19:18] VITALS: BP 114/61
[2019-04-15] MEDS ORDERED: ATORVASTATIN CALCIUM 20 MG TABLET PO SCH (21:00)
[2019-04-15 23:44] VITALS: BP 134/60
[2019-04-16 03:02] VITALS: BP 114/59
[2019-04-16 07:00] VITALS: BP 126/76
[2019-04-16] MEDS: CYCLOBENZAPRINE 10 MG TABLET. PO SCH (08:38)
[2019-04-16 08:39] VITALS: BP 126/76
[2019-04-16] MEDS: METOPROLOL TART IMMED RELEASE 25 MG TABLET. PO SCH (08:39)
[2019-04-16] MEDS: LOSARTAN POTASSIUM 50 MG TABLET. PO SCH (08:39)
[2019-04-16] MEDS: ASPIRIN CHEWABLE 81 MG TABLET. PO SCH (08:39)
--- NOTE | 2019-04-16 09:07 | PDOC ---
PROGRESS NOTES Chief Complaint Chief Complaint Chest pain Neck and arm numbness, angina, r/o ACS, consult CV, HTN emergency - DBP 114 with poor control, added b-keiko obese, BMI 31, heavily muscled for his age, History of Present Illness History of Present Illness Mr Gordon is an 83 yo male admitted for complains of left side numbness and tingling. He reports that he has been having intermittent numbness and tingling to lateral side of LLE and LUE with some pain to left temporal region neck and shoulder but no JACOBS. Denies any unilateral weakness, dysarthria, visual or auditory symptoms. Denies any ESPINOZA nor exertional CP. He has been in ED multiple times for the same issue and each time he is noted with uncontrolled HTN. Seen by cardiology and neurology. Echo: The left ventricular systolic function is normal. The Ejection Fraction is 55-60%. There is normal LV segmental wall motion. Transmitral Doppler flow pattern is Grade I-abnormal relaxation pattern. Trace tricuspid regurgitation. There is no evidence of significant pericardial effusion. Blood pressure of 195/114. He is feeling better today with blood pressure reduced. 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 Underwent MRI today, read pending. He is asking when he can leave. Vitals Vitals Vital Signs Date Time Temp Pulse Resp B/P (MAP) Pulse Ox O2 Delivery O2 Flow Rate FiO2 04/16/19 08:39 79 126/76 04/16/19 07:00 97.7 18 94 Room Air 97.7 Physical Exam General: Alert, Oriented X3, Cooperative, No acute distress Heart: Regular rate (SR), Normal S1, Normal S2, No murmurs Abdomen: Soft, No tenderness Extremities: No cyanosis, No edema Skin: No breakdown, No significant lesion Labs LABS Laboratory Tests Test 04/15/19 12:55 Erythrocyte Sedimentation Rate 9 (0-15) Assessment and Plan Assessmemt and Plan Problems Medical Problems: (1) Chest pain at rest Status: Acute (2) Left sided numbness Status: Acute Comment Review of Relevant I have reviewed the following items hailey (where applicable) has been applied. Labs Laboratory Tests Test 04/14/19 09:50 04/14/19 20:45 04/15/19 05:00 04/15/19 12:55 White Blood Count 4.3 x10^3/uL (4.0-11.0) 4.7 x10^3/uL (4.0-11.0) Red Blood Count 5.02 x10^6/uL (4.30-5.70) 5.27 x10^6/uL (4.30-5.70) Hemoglobin 11.4 g/dL (13.0-17.5) 12.0 g/dL (13.0-17.5) Hematocrit 35.8 % (39.0-53.0) 37.7 % (39.0-53.0) Mean Corpuscular Volume 71 fL (79-100) 72 fL (79-100) Mean Corpuscular Hemoglobin 23 pg (25-35) 23 pg (25-35) Mean Corpuscular Hemoglobin Concent 32 g/dL (31-37) 32 g/dL (31-37) Red Cell Distribution Width 14.7 % (11.5-14.5) 15.0 % (11.5-14.5) Platelet Count 117 x10^3/uL (140-400) 93 x10^3/uL (140-400) Neutrophils (%) (Auto) 61 % (31-73) 60 % (31-73) Lymphocytes (%) (Auto) 26 % (24-48) 27 % (24-48) Monocytes (%) (Auto) 11 % (0-9) 11 % (0-9) Eosinophils (%) (Auto) 2 % (0-3) 3 % (0-3) Basophils (%) (Auto) 1 % (0-3) 1 % (0-3) Neutrophils # (Auto) 2.6 x10^3/uL (1.8-7.7) 2.8 x10^3/uL (1.8-7.7) Lymphocytes # (Auto) 1.1 x10^3/uL (1.0-4.8) 1.2 x10^3/uL (1.0-4.8) Monocytes # (Auto) 0.5 x10^3/uL (0.0-1.1) 0.5 x10^3/uL (0.0-1.1) Eosinophils # (Auto) 0.1 x10^3/uL (0.0-0.7) 0.1 x10^3/uL (0.0-0.7) Basophils # (Auto) 0.0 x10^3/uL (0.0-0.2) 0.0 x10^3/uL (0.0-0.2) Platelet Estimate Adequate (ADEQUATE) Large Platelets Present Erythrocyte Sedimentation Rate 8 (0-15) 9 (0-15) Sodium Level 138 mmol/L (136-145) 137 mmol/L (136-145) Potassium Level 4.2 mmol/L (3.5-5.1) 4.8 mmol/L (3.5-5.1) Chloride Level 101 mmol/L (98-107) 103 mmol/L (98-107) Carbon Dioxide Level 26 mmol/L (21-32) 27 mmol/L (21-32) Anion Gap 11 (6-14) 7 (6-14) Blood Urea Nitrogen 26 mg/dL (8-26) 23 mg/dL (8-26) Creatinine 1.1 mg/dL (0.7-1.3) 1.2 mg/dL (0.7-1.3) Estimated GFR (Cockcroft-Gault) 77.7 70.3 BUN/Creatinine Ratio 24 (6-20) 19 (6-20) Glucose Level 84 mg/dL (70-99) 100 mg/dL (70-99) Calcium Level 8.9 mg/dL (8.5-10.1) 8.7 mg/dL (8.5-10.1) Magnesium Level 2.2 mg/dL (1.8-2.4) Total Bilirubin 0.6 mg/dL (0.2-1.0) 0.3 mg/dL (0.2-1.0) Aspartate Amino Transf (AST/SGOT) 32 U/L (15-37) 29 U/L (15-37) Alanine Aminotransferase (ALT/SGPT) 49 U/L (16-63) 49 U/L (16-63) Alkaline Phosphatase 71 U/L (46-116) 69 U/L (46-116) Troponin I Quantitative < 0.017 ng/mL (0.000-0.055) < 0.017 ng/mL (0.000-0.055) XG-Fvi-[id number]-Type Natriuretic Peptide 147 pg/mL (0-449) Total Protein 7.4 g/dL (6.4-8.2) 6.7 g/dL (6.4-8.2) Albumin 4.0 g/dL (3.4-5.0) 3.6 g/dL (3.4-5.0) Albumin/Globulin Ratio 1.2 (1.0-1.7) 1.2 (1.0-1.7) Thyroid Stimulating Hormone (TSH) 2.210 uIU/mL (0.358-3.74) Urine Collection Type Unknown Urine Color Yellow Urine Clarity Clear Urine pH 5.5 Urine Specific [employer] 1.020 Urine Protein Negative mg/dL (NEG-TRACE) Urine Glucose (UA) Negative mg/dL (NEG) Urine Ketones (Stick) Negative mg/dL (NEG) Urine Blood Negative (NEG) Urine Nitrite Negative (NEG) Urine Bilirubin Negative (NEG) Urine Urobilinogen Dipstick 1.0 mg/dL (0.2 mg/dL) Urine Leukocyte Esterase Negative (NEG) Urine RBC 0 /HPF (0-2) Urine WBC 0 /HPF (0-4) Urine Bacteria 0 /HPF (0-FEW) Urine Mucus Marked /LPF Iron Level 30 ug/dL (65-175) Total Iron Binding Capacity 223 ug/dL (250-450) Iron Saturation 13 % (15-34) Triglycerides Level 69 mg/dL (0-150) Cholesterol Level 161 mg/dL (0-200) LDL Cholesterol, Calculated 114 mg/dL (0-100) VLDL Cholesterol, Calculated 14 mg/dL (0-40) Non-HDL Cholesterol Calculated 128 mg/dL (0-129) HDL Cholesterol 33 mg/dL (40-60) Cholesterol/HDL Ratio 4.9 Laboratory Tests Test 04/15/19 12:55 Erythrocyte Sedimentation Rate 9 (0-15) Medications Current Medications Morphine Sulfate (Morphine Sulfate) 4 mg 1X ONCE IV Last administered on 04/14/19at 14:10; Start 04/14/19 at 14:00; Stop 04/14/19 at 14:01; Status DC Ondansetron HCl (Zofran) 4 mg 1X ONCE IVP Last administered on 04/14/19at 14:09; Start 04/14/19 at 14:00; Stop 04/14/19 at 14:01; Status DC Metoprolol Tartrate (Lopressor) 50 mg 1X ONCE PO Last administered on 04/14/19at 15:29; Start 04/14/19 at 14:30; Stop 04/14/19 at 14:31; Status DC Metoprolol Tartrate (Lopressor) 25 mg BID PO Last administered on 04/16/19at 08:39; Start 04/14/19 at 21:00 Aspirin (Children'S Aspirin) 81 mg DAILY PO Last administered on 04/16/19at 08:39; Start 04/14/19 at 15:00 Cyclobenzaprine HCl (Flexeril) 10 mg TID PO Last administered on 04/16/19at 08:38; Start 04/14/19 at 15:00 Losartan Potassium (Cozaar) 50 mg DAILY PO Last administered on 04/16/19at 08:39; Start 04/15/19 at 09:00 Morphine Sulfate (Morphine Sulfate) 2 mg PRN Q2HR PRN IV PAIN; Start 04/15/19 at 04:30 Atorvastatin Calcium (Lipitor) 20 mg QHS PO Last administered on 04/15/19at 21:02; Start 04/15/19 at 21:00 Active Scripts Active Atorvastatin Calcium 20 Mg Tablet 20 Mg PO QHS 30 Days Metoprolol Tartrate 25 Mg Tablet 25 Mg PO BID 30 Days Losartan Potassium 50 Mg Tablet 50 Mg PO DAILY 30 Days Cyclobenzaprine Hcl 10 Mg Tablet 1 Tab PO TID Losartan Potassium 50 Mg Tablet 50 Mg PO DAILY Reported Aspirin 81 Mg Tab.chew 1 Tab PO DAILY Vitals/I & O Vital Sign - Last 24 Hours 04/15/19 04/15/19 04/15/19 04/15/19 11:00 11:12 11:13 15:00 Temp 97.4 97.4 97.4 97.4 Pulse 77 78 78 73 Resp 18 18 B/P (MAP) 141/83 (102) 141/83 141/83 139/69 (92) Pulse Ox 97 98 O2 Delivery Room Air Room Air 04/15/19 04/15/19 04/15/19 04/15/19 19:18 20:00 21:02 23:44 Temp 97.4 97.6 97.4 97.6 Pulse 69 69 78 Resp 18 18 B/P (MAP) 114/61 (78) 114/61 134/60 (84) Pulse Ox 98 97 O2 Delivery Room Air Room Air Room Air 04/16/19 04/16/19 04/16/19 04/16/19 03:02 07:00 08:39 08:39 Temp 97.9 97.7 97.9 97.7 Pulse 72 79 79 79 Resp 20 18 B/P (MAP) 114/59 (77) 126/76 (93) 126/76 126/76 Pulse Ox 96 94 O2 Delivery Room Air Room Air Intake and Output 04/15/19 04/15/19 04/16/19 15:00 23:00 07:00 Intake Total 1100 ml 400 ml Balance 1100 ml 400 ml QUINN MCQUEEN MD Apr 16, 2019 09:07
--- NOTE | 2019-04-16 09:36 | PDOC ---
PROGRESS NOTES Assessment Problems Medical Problems: (1) Chest pain at rest Status: Acute (2) Left sided numbness Status: Acute Stereotyped symptoms of left-sided numbness always related to hypertension and relieved with its resolution, most likely this is hypertensive encephalopathy. I find no evidence of new stroke, intracranial neoplasm, migraine headache, seizure, or intracranial infection. There is a component of neck pain raising the possibility of a cervical radiculopathy and myelopathy, but that would be unlikely to cause one-sided symptoms involving the head as well. Plan Await brain and cervical MRI Continue daily aspirin Blood pressure control Okay for discharge later today F/U with neurology PRN Subjective No complaints, numbness gone, wants to go home Objective Vital Signs Date Time Temp Pulse Resp B/P (MAP) Pulse Ox O2 Delivery O2 Flow Rate FiO2 04/16/19 08:39 79 126/76 04/16/19 07:00 97.7 18 94 Room Air 97.7 Intake and Output 04/16/19 06:59 Intake Total 1500 ml Balance 1500 ml Intake Oral 1500 ml # Voids 5 PHYSICAL EXAM Alert. Oriented to time, place and person. PERRL. EOMI. CN: no focal findings. Muscle tone: normal. Muscle strength: 5/5 DTR: 2 Plantar reflex: flexor Gait: not examined in bed. Sensory exam: no abnormal findings. No cerebellar signs elicited. Review of Relevant I have reviewed the following items hailey (where applicable) has been applied. Labs Laboratory Tests Test 04/14/19 09:50 04/14/19 20:45 04/15/19 05:00 04/15/19 12:55 White Blood Count 4.3 x10^3/uL (4.0-11.0) 4.7 x10^3/uL (4.0-11.0) Red Blood Count 5.02 x10^6/uL (4.30-5.70) 5.27 x10^6/uL (4.30-5.70) Hemoglobin 11.4 g/dL (13.0-17.5) 12.0 g/dL (13.0-17.5) Hematocrit 35.8 % (39.0-53.0) 37.7 % (39.0-53.0) Mean Corpuscular Volume 71 fL (79-100) 72 fL (79-100) Mean Corpuscular Hemoglobin 23 pg (25-35) 23 pg (25-35) Mean Corpuscular Hemoglobin Concent 32 g/dL (31-37) 32 g/dL (31-37) Red Cell Distribution Width 14.7 % (11.5-14.5) 15.0 % (11.5-14.5) Platelet Count 117 x10^3/uL (140-400) 93 x10^3/uL (140-400) Neutrophils (%) (Auto) 61 % (31-73) 60 % (31-73) Lymphocytes (%) (Auto) 26 % (24-48) 27 % (24-48) Monocytes (%) (Auto) 11 % (0-9) 11 % (0-9) Eosinophils (%) (Auto) 2 % (0-3) 3 % (0-3) Basophils (%) (Auto) 1 % (0-3) 1 % (0-3) Neutrophils # (Auto) 2.6 x10^3/uL (1.8-7.7) 2.8 x10^3/uL (1.8-7.7) Lymphocytes # (Auto) 1.1 x10^3/uL (1.0-4.8) 1.2 x10^3/uL (1.0-4.8) Monocytes # (Auto) 0.5 x10^3/uL (0.0-1.1) 0.5 x10^3/uL (0.0-1.1) Eosinophils # (Auto) 0.1 x10^3/uL (0.0-0.7) 0.1 x10^3/uL (0.0-0.7) Basophils # (Auto) 0.0 x10^3/uL (0.0-0.2) 0.0 x10^3/uL (0.0-0.2) Platelet Estimate Adequate (ADEQUATE) Large Platelets Present Erythrocyte Sedimentation Rate 8 (0-15) 9 (0-15) Sodium Level 138 mmol/L (136-145) 137 mmol/L (136-145) Potassium Level 4.2 mmol/L (3.5-5.1) 4.8 mmol/L (3.5-5.1) Chloride Level 101 mmol/L (98-107) 103 mmol/L (98-107) Carbon Dioxide Level 26 mmol/L (21-32) 27 mmol/L (21-32) Anion Gap 11 (6-14) 7 (6-14) Blood Urea Nitrogen 26 mg/dL (8-26) 23 mg/dL (8-26) Creatinine 1.1 mg/dL (0.7-1.3) 1.2 mg/dL (0.7-1.3) Estimated GFR (Cockcroft-Gault) 77.7 70.3 BUN/Creatinine Ratio 24 (6-20) 19 (6-20) Glucose Level 84 mg/dL (70-99) 100 mg/dL (70-99) Calcium Level 8.9 mg/dL (8.5-10.1) 8.7 mg/dL (8.5-10.1) Magnesium Level 2.2 mg/dL (1.8-2.4) Total Bilirubin 0.6 mg/dL (0.2-1.0) 0.3 mg/dL (0.2-1.0) Aspartate Amino Transf (AST/SGOT) 32 U/L (15-37) 29 U/L (15-37) Alanine Aminotransferase (ALT/SGPT) 49 U/L (16-63) 49 U/L (16-63) Alkaline Phosphatase 71 U/L (46-116) 69 U/L (46-116) Troponin I Quantitative < 0.017 ng/mL (0.000-0.055) < 0.017 ng/mL (0.000-0.055) FA-Moj-J-Type Natriuretic Peptide 147 pg/mL (0-449) Total Protein 7.4 g/dL (6.4-8.2) 6.7 g/dL (6.4-8.2) Albumin 4.0 g/dL (3.4-5.0) 3.6 g/dL (3.4-5.0) Albumin/Globulin Ratio 1.2 (1.0-1.7) 1.2 (1.0-1.7) Thyroid Stimulating Hormone (TSH) 2.210 uIU/mL (0.358-3.74) Urine Collection Type Unknown Urine Color Yellow Urine Clarity Clear Urine pH 5.5 Urine Specific [place] 1.020 Urine Protein Negative mg/dL (NEG-TRACE) Urine Glucose (UA) Negative mg/dL (NEG) Urine Ketones (Stick) Negative mg/dL (NEG) Urine Blood Negative (NEG) Urine Nitrite Negative (NEG) Urine Bilirubin Negative (NEG) Urine Urobilinogen Dipstick 1.0 mg/dL (0.2 mg/dL) Urine Leukocyte Esterase Negative (NEG) Urine RBC 0 /HPF (0-2) Urine WBC 0 /HPF (0-4) Urine Bacteria 0 /HPF (0-FEW) Urine Mucus Marked /LPF Iron Level 30 ug/dL (65-175) Total Iron Binding Capacity 223 ug/dL (250-450) Iron Saturation 13 % (15-34) Triglycerides Level 69 mg/dL (0-150) Cholesterol Level 161 mg/dL (0-200) LDL Cholesterol, Calculated 114 mg/dL (0-100) VLDL Cholesterol, Calculated 14 mg/dL (0-40) Non-HDL Cholesterol Calculated 128 mg/dL (0-129) HDL Cholesterol 33 mg/dL (40-60) Cholesterol/HDL Ratio 4.9 Laboratory Tests Test 04/15/19 12:55 Erythrocyte Sedimentation Rate 9 (0-15) Medications Current Medications Morphine Sulfate (Morphine Sulfate) 4 mg 1X ONCE IV Last administered on 04/14/19at 14:10; Start 04/14/19 at 14:00; Stop 04/14/19 at 14:01; Status DC Ondansetron HCl (Zofran) 4 mg 1X ONCE IVP Last administered on 04/14/19at 14:09; Start 04/14/19 at 14:00; Stop 04/14/19 at 14:01; Status DC Metoprolol Tartrate (Lopressor) 50 mg 1X ONCE PO Last administered on at 15:29; Start 04/14/19 at 14:30; Stop 04/14/19 at 14:31; Status DC Metoprolol Tartrate (Lopressor) 25 mg BID PO Last administered on 04/16/19at 08:39; Start 04/14/19 at 21:00 Aspirin (Children'S Aspirin) 81 mg DAILY PO Last administered on 04/16/19at 08:39; Start 04/14/19 at 15:00 Cyclobenzaprine HCl (Flexeril) 10 mg TID PO Last administered on 04/16/19at 08:38; Start 04/14/19 at 15:00 Losartan Potassium (Cozaar) 50 mg DAILY PO Last administered on 04/16/19at 08:39; Start 04/15/19 at 09:00 Morphine Sulfate (Morphine Sulfate) 2 mg PRN Q2HR PRN IV PAIN; Start 04/15/19 at 04:30 Atorvastatin Calcium (Lipitor) 20 mg QHS PO Last administered on 04/15/19at 21:02; Start 04/15/19 at 21:00 Active Scripts Active Atorvastatin Calcium 20 Mg Tablet 20 Mg PO QHS 30 Days Metoprolol Tartrate 25 Mg Tablet 25 Mg PO BID 30 Days Losartan Potassium 50 Mg Tablet 50 Mg PO DAILY 30 Days Cyclobenzaprine Hcl 10 Mg Tablet 1 Tab PO TID Losartan Potassium 50 Mg Tablet 50 Mg PO DAILY Reported Aspirin 81 Mg Tab.chew 1 Tab PO DAILY Vitals/I & O Vital Sign - Last 24 Hours 04/15/19 04/15/19 04/15/19 04/15/19 11:00 11:12 11:13 15:00 Temp 97.4 97.4 97.4 97.4 Pulse 77 78 78 73 Resp 18 18 B/P (MAP) 141/83 (102) 141/83 141/83 139/69 (92) Pulse Ox 97 98 O2 Delivery Room Air Room Air 04/15/19 04/15/19 04/15/19 04/15/19 19:18 20:00 21:02 23:44 Temp 97.4 97.6 97.4 97.6 Pulse 69 69 78 Resp 18 B/P (MAP) 114/61 (78) 114/61 134/60 (84) Pulse Ox 98 97 O2 Delivery Room Air Room Air Room Air 04/16/19 04/16/19 04/16/19 04/16/19 03:02 07:00 08:39 08:39 Temp 97.9 97.7 97.9 97.7 Pulse 72 79 79 79 Resp 18 B/P (MAP) 114/59 (77) 126/76 (93) 126/76 126/76 Pulse Ox 96 94 O2 Delivery Room Air Room Air Intake and Output 04/15/19 04/15/19 04/16/19 14:59 22:59 06:59 Intake Total 1100 ml 400 ml Balance 1100 ml 400 ml CAITLYN AMAYA MD Apr 16, 2019 09:36
[2019-04-16] MEDS ORDERED: CYCL10TA2 PO (10:30)
--- NOTE | 2019-04-16 10:43 | RAD ---
BRAIN W/O CONTRAST History: Left-sided numbness. Technique: Multiplanar, multi sequential MR imaging was performed of the brain without contrast. Comparison: Head CT April 14, 2019. Brain MRI September 23, 2018. Findings: No acute infarct. No intracranial hemorrhage. No mass effect. No hydrocephalus. Moderate foci of T2/FLAIR hyperintensities within the hemispheric white matter, most often due to chronic microvascular ischemia. Unchanged tiny left posterior periventricular CSF attenuation focus, likely related to prior insult or prominent perivascular space. Chronic right lateral pina lacunar infarct. Several punctate gradient hypointensities within the basal ganglia, thalamus and left medial temporal lobe likely related to prior hypertensive microhemorrhages. Imaged orbits are unremarkable. Imaged paranasal sinuses and mastoid air cells are clear. Impression: 1. No acute intracranial abnormality. 2. Moderate sequela of chronic microvascular ischemia. Electronically signed by: Reese Lee DO (04/16/2019 10:40 AM) [email or web address]
--- NOTE | 2019-04-16 10:47 | RAD ---
CERVICAL SPINE WO CONTRAST History: Left-sided numbness. Neck pain. Technique: Multiplanar, multi sequential noncontrast MR imaging was performed of the cervical spine. Comparison: None Findings: Normal vertebral body height and alignment. No fracture. Normal appearance of the cervical spinal cord. No pathologic signal abnormality. C2-C3: Small posterior disc osteophyte complex. No canal narrowing. No neuroforaminal narrowing. Facet arthropathy. C3-C4: Small posterior disc osteophyte complex. No canal narrowing. Uncovertebral and facet arthropathy. Moderate left and mild right neuroforaminal narrowing. C4-C5: Posterior disc osteophyte complex. Partial effacement of ventral CSF space. Minimal cord flattening. No canal narrowing. Uncovertebral and facet arthropathy. Moderate left and early right neuroforaminal narrowing. C5-C6: Posterior disc osteophyte complex. Minimal canal narrowing. Cord flattening. Uncovertebral and facet arthropathy. Severe right and moderate to severe left neuroforaminal narrowing. C6-C7: Posterior disc osteophyte complex. Mild cord flattening. Partial effacement of ventral CSF space. Uncovertebral and facet arthropathy. Moderate right and mild left neuroforaminal narrowing. C7-T1: No canal or neuroforaminal narrowing. Facet arthropathy. Impression: 1. Moderate multilevel cervical spondylosis. 2. Multilevel neural foraminal narrowing most prominent C5-C6. Electronically signed by: Reese Lee DO (04/16/2019 10:45 AM) [email or web address]
--- NOTE | 2019-04-16 10:54 | PDOC3 ---
Discharge Summary Visit Information Date of Admission: Apr 14, 2019 Date of Discharge: Apr 16, 2019 Admitting Diagnosis: Left sided numbness Final Diagnosis Problems Medical Problems: (1) Chest pain at rest Status: Acute (2) Left sided numbness Status: Acute Brief Hospital Course Allergies Allergies Coded Allergies Type Severity Reaction Last Updated Verified No Known Drug Allergies 09/22/18 No Vital Signs Vital Signs Date Time Temp Pulse Resp B/P (MAP) Pulse Ox O2 Delivery O2 Flow Rate FiO2 04/16/19 08:39 79 126/76 04/16/19 08:00 Room Air 04/16/19 07:00 97.7 18 94 97.7 Lab Results Laboratory Tests Test 04/14/19 20:45 04/15/19 05:00 04/15/19 12:55 Urine Collection Type Unknown Urine Color Yellow Urine Clarity Clear Urine pH 5.5 Urine Specific [place] 1.020 Urine Protein Negative mg/dL (NEG-TRACE) Urine Glucose (UA) Negative mg/dL (NEG) Urine Ketones (Stick) Negative mg/dL (NEG) Urine Blood Negative (NEG) Urine Nitrite Negative (NEG) Urine Bilirubin Negative (NEG) Urine Urobilinogen Dipstick 1.0 mg/dL (0.2 mg/dL) Urine Leukocyte Esterase Negative (NEG) Urine RBC 0 /HPF (0-2) Urine WBC 0 /HPF (0-4) Urine Bacteria 0 /HPF (0-FEW) Urine Mucus Marked /LPF White Blood Count 4.7 x10^3/uL (4.0-11.0) Red Blood Count 5.27 x10^6/uL (4.30-5.70) Hemoglobin 12.0 g/dL (13.0-17.5) Hematocrit 37.7 % (39.0-53.0) Mean Corpuscular Volume 72 fL (79-100) Mean Corpuscular Hemoglobin 23 pg (25-35) Mean Corpuscular Hemoglobin Concent 32 g/dL (31-37) Red Cell Distribution Width 15.0 % (11.5-14.5) Platelet Count 93 x10^3/uL (140-400) Neutrophils (%) (Auto) 60 % (31-73) Lymphocytes (%) (Auto) 27 % (24-48) Monocytes (%) (Auto) 11 % (0-9) Eosinophils (%) (Auto) 3 % (0-3) Basophils (%) (Auto) 1 % (0-3) Neutrophils # (Auto) 2.8 x10^3/uL (1.8-7.7) Lymphocytes # (Auto) 1.2 x10^3/uL (1.0-4.8) Monocytes # (Auto) 0.5 x10^3/uL (0.0-1.1) Eosinophils # (Auto) 0.1 x10^3/uL (0.0-0.7) Basophils # (Auto) 0.0 x10^3/uL (0.0-0.2) Sodium Level 137 mmol/L (136-145) Potassium Level 4.8 mmol/L (3.5-5.1) Chloride Level 103 mmol/L (98-107) Carbon Dioxide Level 27 mmol/L (21-32) Anion Gap 7 (6-14) Blood Urea Nitrogen 23 mg/dL (8-26) Creatinine 1.2 mg/dL (0.7-1.3) Estimated GFR (Cockcroft-Gault) 70.3 BUN/Creatinine Ratio 19 (6-20) Glucose Level 100 mg/dL (70-99) Calcium Level 8.7 mg/dL (8.5-10.1) Iron Level 30 ug/dL (65-175) Total Iron Binding Capacity 223 ug/dL (250-450) Iron Saturation 13 % (15-34) Total Bilirubin 0.3 mg/dL (0.2-1.0) Aspartate Amino Transf (AST/SGOT) 29 U/L (15-37) Alanine Aminotransferase (ALT/SGPT) 49 U/L (16-63) Alkaline Phosphatase 69 U/L (46-116) Troponin I Quantitative < 0.017 ng/mL (0.000-0.055) Total Protein 6.7 g/dL (6.4-8.2) Albumin 3.6 g/dL (3.4-5.0) Albumin/Globulin Ratio 1.2 (1.0-1.7) Triglycerides Level 69 mg/dL (0-150) Cholesterol Level 161 mg/dL (0-200) LDL Cholesterol, Calculated 114 mg/dL (0-100) VLDL Cholesterol, Calculated 14 mg/dL (0-40) Non-HDL Cholesterol Calculated 128 mg/dL (0-129) HDL Cholesterol 33 mg/dL (40-60) Cholesterol/HDL Ratio 4.9 Erythrocyte Sedimentation Rate 9 (0-15) Laboratory Tests Test 04/15/19 12:55 Erythrocyte Sedimentation Rate 9 (0-15) Brief Hospital Course Mr Gordon is an 83 yo male admitted for complains of left side numbness and tingling. He reports that he has been having intermittent numbness and tingling to lateral side of LLE and LUE with some pain to left temporal region neck and shoulder but no JACOBS. Denies any unilateral weakness, dysarthria, visual or auditory symptoms. Denies any ESPINOZA nor exertional CP. He has been in ED multi ple times for the same issue and each time he is noted with uncontrolled HTN. Seen by cardiology and neurology. Echo: The left ventricular systolic function is normal. The Ejection Fraction is 55-60%. There is normal LV segmental wall motion. Transmitral Doppler flow pattern is Grade I-abnormal relaxation pattern. Trace tricuspid regurgitation. There is no evidence of significant pericardial effusion. Blood pressure of 195/114. He is feeling better today with blood pressure reduced. 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 Underwent MRI: Head - No acute infarct. No intracranial hemorrhage. No mass effect. No hydrocephalus. Moderate foci of T2/FLAIR hyperintensities within the hemispheric white matter, most often due to chronic microvascular ischemia. Unchanged tiny left posterior periventricular CSF attenuation focus, likely related to prior insult or prominent perivascular space. Chronic right lateral pina lacunar infarct. Several punctate gradient hypointensities within the basal ganglia, thalamus and left medial temporal lobe likely related to prior hypertensive microhemorrhages. Imaged orbits are unremarkable. Imaged paranasal sinuses and mastoid air cells are clear. Impression: 1. No acute intracranial abnormality. 2. Moderate sequela of chronic microvascular ischemia. Problem list - Chest pain Neck and arm numbness, angina, r/o ACS, consult CV, HTN emergency - DBP 114 with poor control, added b-keiko obese, BMI 31, heavily muscled for his age, Cervical spine MRI - Normal vertebral body height and alignment. No fracture. Normal appearance of the cervical spinal cord. No pathologic signal abnormality. C2-C3: Small posterior disc osteophyte complex. No canal narrowing. No n euroforaminal narrowing. Facet arthropathy. C3-C4: Small posterior disc osteophyte complex. No canal narrowing. Uncovertebral and facet arthropathy. Moderate left and mild right neuroforaminal narrowing. C4-C5: Posterior disc osteophyte complex. Partial effacement of ventral CSF space. Minimal cord flattening. No canal narrowing. Uncovertebral and facet arthropathy. Moderate left and early right neuroforaminal narrowing. C5-C6: Posterior disc osteophyte complex. Minimal canal narrowing. Cord flattening. Uncovertebral and facet arthropathy. Severe right and moderate to severe left neuroforaminal narrowing. C6-C7: Posterior disc osteophyte complex. Mild cord flattening. Partial effacement of ventral CSF space. Uncovertebral and facet arthropathy. Moderate right and mild left neuroforaminal narrowing. C7-T1: No canal or neuroforaminal narrowing. Facet arthropathy. Impression: 1. Moderate multilevel cervical spondylosis. 2. Multilevel neural foraminal narrowing most prominent C5-C6. He is asking when he can leave. Greater than 30 minutes spent on d/c Discharge Information Condition at Discharge: Improved Follow Up: Weeks Scheduled Aspirin (Aspirin) 81 Mg Tab.chew, 1 TAB PO DAILY for blood thinner, #30 Ref 3 (Reported) Entered as Reported by: JOSE COOLEY on 09/22/18 1047 Last Action: Continued on 04/14/191422 by LOIDA VAN Atorvastatin Calcium (Atorvastatin Calcium) 20 Mg Tablet, 20 MG PO QHS for HLD, TIA for 30 Days, #30 Ref 3 Prescribed by: QUINN MCQUEEN MD on 04/15/19 1526 Cyclobenzaprine Hcl (Cyclobenzaprine Hcl) 10 Mg Tablet, 1 TAB PO TID for Muscle spasms for 7 Days, #21 Prescribed by: QUINN MCQUEEN MD on 04/16/19 1030 Losartan Potassium (Losartan Potassium) 50 Mg Tablet, 50 MG PO DAILY for HYPERTENSION, #30 Prescribed by: MAT JOHNSON MD on 03/26/19 0928 Last Action: HELD on 04/14/19 142 by LOIDA VAN Losartan Potassium (Losartan Potassium) 50 Mg Tablet, 50 MG PO DAILY for HYP ERTENSION for 30 Days, #30 Prescribed by: QUINN MCQUEEN MD on 04/15/19 1526 Metoprolol Tartrate (Metoprolol Tartrate) 25 Mg Tablet, 25 MG PO BID for HTN for 30 Days, #60 Ref 3 Prescribed by: QUINN MCQUEEN MD on 04/15/19 1526 Discontinued Medications Methylprednisolone (Medrol) 4 Mg Tab.ds.pk, 1 PKG PO UD for inflammation, #1 Prescribed by: MAT JOHNSON MD on 03/26/19 0928 Last Action: HELD on 04/14/191422 by QUINN CASTILLO MD Apr 16, 2019 10:53
--- NOTE | 2019-04-16 11:49 | NUR ---
Discharge Note: [facility] Discharge instructions and discharge home medications reviewed with Patient and a copy given. All questions have been answered and understanding verbalized.
== END 2019-04-16 11:50 | disposition home or self-care (01) | DRG 305 ==
LOC: ER 08:20 → ED HOLD 11:29 → 2 SOUTH 16:29
PROVIDERS: ADMIT Internal Medicine; ATTEND Internal Medicine
DX: I16.1 Hypertensive emergency (principal); I20.9 Angina pectoris, unspecified; D69.6 Thrombocytopenia, unspecified; E66.9 Obesity, unspecified; E78.5 Hyperlipidemia, unspecified; Z86.73 Personal history of transient ischemic attack (TIA), and cerebral infarction without residual deficits; I10 Essential (primary) hypertension; Z82.49 Family history of ischemic heart disease and other diseases of the circulatory system; M25.78 Osteophyte, vertebrae; M47.812 Spondylosis without myelopathy or radiculopathy, cervical region; Z68.31 Body mass index [BMI] 31.0-31.9, adult; M19.90 Unspecified osteoarthritis, unspecified site
CPT/HCPCS: 36415; 70450; 70551; 71045; 72141; 80053; 80061; 81001; 83540; 83550; 83735; 83880; 84443; 84484; 85025; 85651; 93005; 93306; 96374; 96375; J2270; J2405; 99285-25; G0378

== ENCOUNTER 2019-05-07 04:08 | Emergency (ER) | payer SELFPAY ==
[~2019-05-07] VITALS: Ht 193 cm; Wt 113.4 kg
[~2019-05-07 04:08] MED LIST changes: +ATOR20TA58 PO; +LORA0.5T96 PO; +METO25TA4 PO
[2019-05-07 04:56] LABS: BASO % 1 % (0-3); EOS # 0.2 x10^3/uL (0.0-0.7); EOS % 3 % (0-3); HEMATOCRIT 37.7 % (39.0-53.0); HEMOGLOBIN 12.2 g/dL (13.0-17.5); LYMPH # 1.7 x10^3/uL (1.0-4.8); LYMPH % 29 % (24-48); MEAN CORPUSCULAR HEMOGLOBIN 23 pg (25-35); MEAN CORPUSCULAR HGB CONC 32 g/dL (31-37); MEAN CORPUSCULAR VOLUME 71 fL (79-100); MONO # 0.6 x10^3/uL (0.0-1.1); MONO % 10 % (0-9); NEUT # 3.4 x10^3/uL (1.8-7.7); NEUT % 58 % (31-73); PLATELET COUNT 124 x10^3/uL (140-400); RED BLOOD COUNT 5.32 x10^6/uL (4.30-5.70); RED CELL DISTRIBUTION WIDTH 14.9 % (11.5-14.5); WHITE BLOOD COUNT 5.9 x10^3/uL (4.0-11.0)
[2019-05-07 05:09] LABS: CALCIUM 8.7 mg/dL (8.5-10.1); CREATININE 1.1 mg/dL (0.7-1.3); GFR 77.7
[2019-05-07 05:14] LABS: ALBUMIN 3.7 g/dL (3.4-5.0); TOTAL BILIRUBIN 0.6 mg/dL (0.2-1.0); TOTAL PROTEIN 7.4 g/dL (6.4-8.2)
[2019-05-07 05:29] LABS: PROTHROMBIN TIME PATIENT 14.1 SEC (11.7-14.0)
--- NOTE | 2019-05-07 05:42 | PHYS DOC ---
Past Medical History Past Medical History: Hypertension Past Surgical History: No Surgical History Alcohol Use: Occasionally Drug Use: None Adult General Chief Complaint Chief Complaint: Neck Pain HPI HPI Patient is a 83 year old male presents to the ER with complaints of parasthesia. Patient has history of anxiety, HTN and states that he has been dealing with parasthesia off and on since September of last year. Patient denies chest apin, SOB, nausea, vomiting, headache, visual changes, speech change. Nothing makes symptoms worse, nothing makes symptoms better. Patient denies neurology follow up or follow up with his PCP. Review of Systems Review of Systems Constitutional: Denies fever or chills [] Respiratory: Denies cough or shortness of breath [] Cardiovascular: No additional information not addressed in HPI [] GI: Denies abdominal pain, nausea, vomiting, bloody stools or diarrhea [] Musculoskeletal: Denies back pain or joint pain [] Integument: Denies rash or skin lesions [] Neurologic: Denies headache, focal weakness or sensory changes [] All other systems were reviewed and found to be within normal limits, except as documented in this note. Current Medications Current Medications Current Medications Medications (Trade) Dose Ordered Sig/Stacy Start Time Stop Time Status Last Admin Dose Admin Lorazepam (Ativan Inj) 1 mg 1X ONCE 05/07/19 05:30 05/07/19 05:31 DC 05/07/19 05:34 1 MG Allergies Allergies Allergies Coded Allergies Type Severity Reaction Last Updated Verified No Known Drug Allergies 09/22/18 No Physical Exam Physical Exam Constitutional: Well developed, well nourished, no acute distress, non-toxic appearance. [] HENT: Normocephalic, atraumatic, bilateral external ears normal, oropharynx moist, no oral exudates, nose normal. [] Eyes: PERRLA, EOMI, conjunctiva normal, no discharge. [] Cardiovascular:Heart rate regular rhythm, no murmur [] Lungs & Thorax: Bilateral breath sounds clear to auscultation [] Abdomen: Bowel sounds normal, soft, no tenderness, no masses, no pulsatile masses. [] Skin: Warm, dry, no erythema, no rash. [] Back: No tenderness, no CVA tenderness. [] Extremities: No tenderness,no edema. [] Neurologic: Alert and oriented X 3, no focal deficits noted. [] Psychologic: Affect normal, judgement normal, mood normal. [] Current Patient Data Vital Signs Vital Signs Date Time Temp Pulse Resp B/P (MAP) Pulse Ox O2 Delivery O2 Flow Rate FiO2 05/07/19 05:53 75 135/73 (93) 99 Room Air 05/07/19 04:15 97.4 18 97.4 Lab Values Laboratory Tests Test 05/07/19 04:45 White Blood Count 5.9 x10^3/uL (4.0-11.0) Red Blood Count 5.32 x10^6/uL (4.30-5.70) Hemoglobin 12.2 g/dL (13.0-17.5) L Hematocrit 37.7 % (39.0-53.0) L Mean Corpuscular Volume 71 fL (79-100) L Mean Corpuscular Hemoglobin 23 pg (25-35) L Mean Corpuscular Hemoglobin Concent 32 g/dL (31-37) Red Cell Distribution Width 14.9 % (11.5-14.5) H Platelet Count 124 x10^3/uL (140-400) L Neutrophils (%) (Auto) 58 % (31-73) Lymphocytes (%) (Auto) 29 % (24-48) Monocytes (%) (Auto) 10 % (0-9) H Eosinophils (%) (Auto) 3 % (0-3) Basophils (%) (Auto) 1 % (0-3) Neutrophils # (Auto) 3.4 x10^3/uL (1.8-7.7) Lymphocytes # (Auto) 1.7 x10^3/uL (1.0-4.8) Monocytes # (Auto) 0.6 x10^3/uL (0.0-1.1) Eosinophils # (Auto) 0.2 x10^3/uL (0.0-0.7) Basophils # (Auto) 0.0 x10^3/uL (0.0-0.2) Platelet Estimate Pending Prothrombin Time 14.1 SEC (11.7-14.0) H Prothrombin Time INR 1.1 (0.8-1.1) Sodium Level 137 mmol/L (136-145) Potassium Level 4.0 mmol/L (3.5-5.1) Chloride Level 101 mmol/L (98-107) Carbon Dioxide Level 26 mmol/L (21-32) Anion Gap 10 (6-14) Blood Urea Nitrogen 21 mg/dL (8-26) Creatinine 1.1 mg/dL (0.7-1.3) Estimated GFR (Cockcroft-Gault) 77.7 BUN/Creatinine Ratio 19 (6-20) Glucose Level 105 mg/dL (70-99) H Calcium Level 8.7 mg/dL (8.5-10.1) Total Bilirubin 0.6 mg/dL (0.2-1.0) Aspartate Amino Transferase (AST) 27 U/L (15-37) Alanine Aminotransferase (ALT) 47 U/L (16-63) Alkaline Phosphatase 90 U/L (46-116) Total Protein 7.4 g/dL (6.4-8.2) Albumin 3.7 g/dL (3.4-5.0) Albumin/Globulin Ratio 1.0 (1.0-1.7) Laboratory Tests 05/07/19 04:45 Laboratory Tests 05/07/19 04:45 EKG EKG [] Radiology/Procedures Radiology/Procedures [] Course & Med Decision Making Course & Med Decision Making Pertinent Labs and Imaging studies reviewed. (See chart for details) [] Patient is a 83 year old male presents to the ER with complaints of parasthesia. Patient has history of anxiety, HTN and states that he has been dealing with parasthesia off and on since September of last year. Patient denies chest apin, SOB, nausea, vomiting, headache, visual changes, speech change. Nothing makes symptoms worse, nothing makes symptoms better. Patient denies neurology follow up or follow up with his PCP. Labs reviewed Reviewed records from previous visits Patient has had workup in the ER Discussed with patient would recommend admit and further neuro consult if symptoms recurring however he declines. Ativan 1mg IVP provided in ER BP 120's in ER Return precautions provided Neurology referral Dragon Disclaimer Dragon Disclaimer This electronic medical record was generated, in whole or in part, using a voice recognition dictation system. NIHSS Stroke Scale NIH Stroke Scale: NIH Stroke Scale Response (Comments) Value Level of Consciousness: 0 Alert/Responsive 0 LOC Questions: 0 Answers both correctly 0 LOC Commands: 0 Performs both tasks 0 Best Gaze: 0 Normal 0 Visual: 0 No visual loss 0 Facial Palsy: 0 Normal, symmetrical 0 Motor - Left Arm 0 No drift 0 Motor - Right Arm 0 No drift 0 Motor - Left Leg 0 No drift 0 Motor: Right Leg 0 No drift 0 Limb Ataxia: 0 Absent 0 Sensory: 0 No loss 0 Best Language: 0 Normal 0 Dysathria: 0 Normal 0 Extinction and Inattention: 0 Normal 0 Total 0 Departure Departure Impression: Primary Impression: Paresthesia and pain of left extremity Additional Impression: Hypertension Disposition: 01 HOME, SELF-CARE Condition: IMPROVED Referrals: FANI GARCIA MD (PCP) FERNANDEZ SANCHEZ MD Patient Instructions: Paresthesia Additional Instructions: Recommend follow up with PCP 3 - 5 days Return to the ER with worsening symptoms, intractable pain, fever, altered mental status Tylenol/Motrin as needed for pain Neurology referral as outpatient Problem Qualifiers Additional Impression: Hypertension Hypertension type: essential hypertension Qualified Codes: I10 - Essential (primary) hypertension FORD MORALES MD May 07, 2019 05:42
[2019-05-07 05:53] VITALS: BP 135/73
--- NOTE | 2019-05-07 06:15 | EKG ---
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
[2019-05-07 06:53] LABS: PLT ESTIMATE DECREASED (ADEQUATE)
[2019-05-07 06:54] LABS: ANISOCYTOSIS SLIGHT; HYPOCHROMIA MOD; MICROCYTOSIS MOD; POLYCHROMASIA SLIGHT
[2019-05-07 06:55] LABS: OVALOCYTES FEW; TARGET CELLS OCC
== END 2019-05-07 06:20 | disposition home or self-care (01) ==
LOC: ER 04:08
DX: R20.2 Paresthesia of skin (principal); I10 Essential (primary) hypertension; F41.9 Anxiety disorder, unspecified
CPT/HCPCS: 36415; 80053; 85025; 85610; 93005; 96374; 99285; J2060

== ENCOUNTER 2019-05-19 02:24 | Emergency (ER) | payer SELFPAY ==
[2019-05-19 02:43] LABS: BASO % 1 % (0-3); EOS # 0.2 x10^3/uL (0.0-0.7); EOS % 4 % (0-3); HEMOGLOBIN 11.1 g/dL (13.0-17.5); LYMPH # 1.9 x10^3/uL (1.0-4.8); LYMPH % 39 % (24-48); MEAN CORPUSCULAR HEMOGLOBIN 23 pg (25-35); MEAN CORPUSCULAR HGB CONC 32 g/dL (31-37); MEAN CORPUSCULAR VOLUME 71 fL (79-100); MONO # 0.5 x10^3/uL (0.0-1.1); MONO % 11 % (0-9); NEUT # 2.2 x10^3/uL (1.8-7.7); NEUT % 45 % (31-73); PLATELET COUNT 106 x10^3/uL (140-400); RED BLOOD COUNT 4.91 x10^6/uL (4.30-5.70); RED CELL DISTRIBUTION WIDTH 15.2 % (11.5-14.5); WHITE BLOOD COUNT 4.8 x10^3/uL (4.0-11.0)
[2019-05-19 02:55] LABS: CALCIUM 8.5 mg/dL (8.5-10.1); CREATININE 1.1 mg/dL (0.7-1.3); GFR 77.7; POTASSIUM 3.9 mmol/L (3.5-5.1)
[2019-05-19 03:02] LABS: ALBUMIN 3.6 g/dL (3.4-5.0); ALBUMIN/GLOBULIN RATIO 1.1 (1.0-1.7); TOTAL BILIRUBIN 0.3 mg/dL (0.2-1.0)
--- NOTE | 2019-05-19 03:09 | PHYS DOC ---
Past Medical History Past Medical History: Hypertension Past Surgical History: No Surgical History Alcohol Use: Occasionally Drug Use: None Adult General Chief Complaint Chief Complaint: CHEST PAIN HPI HPI Patient is a 83 year old Afro-Sammarinese [place]ammarinese male with history of hypertension who presents with chest pain awaking from sleep. Patient reports waking up feeling as though someone had jumped on his chest. Patient took 2 aspirin T and continued to have some chest pain. Reports mild dyspnea and feeling anxious. No nausea vomiting or sweats. Patient took aspirin prior to arrival with improvement of symptoms. Patient has been evaluated in this emergency department multiple times in the past for similar episodes. Denies history of CAD. He is scheduled to follow-up with forming machine adjuster in 5 days she'll appointment. No recent illnesses. No fever chills, cough, sore throat. No other acute symptoms or complaints.[] Review of Systems Review of Systems Review of symptoms as per history of present illness. All other review symptoms are negative All other systems were reviewed and found to be within normal limits, except as documented in this note. Current Medications Current Medications Current Medications Medications (Trade) Dose Ordered Sig/Stacy Start Time Stop Time Status Last Admin Dose Admin Lorazepam (Ativan Inj) 0.5 mg 1X ONCE 05/19/19 03:00 05/19/19 03:01 DC 05/19/19 03:32 0.5 MG Allergies Allergies Allergies Coded Allergies Type Severity Reaction Last Updated Verified No Known Drug Allergies 09/22/18 No Physical Exam Physical Exam Constitutional: Well developed, well nourished, no acute distress, non-toxic appearance. [] HENT: Normocephalic, atraumatic, bilateral external ears normal, nose normal. [] Eyes: PERRLA, EOMI, conjunctiva normal, no discharge. [] Neck: Normal range of motion, no tenderness. [] Cardiovascular:Heart rate regular rhythm, no murmur [] Lungs & Thorax: Bilateral breath sounds clear to auscultation [] Abdomen: Bowel sounds normal, soft, no tenderness. [] Skin: Warm, dry, no erythema, no rash. [] Back: No tenderness. [] Extremities: No tenderness, no edema. [] Neurologic: Alert and oriented X 3, normal motor function, normal sensory function, no focal deficits noted. [] Psychologic: Affect anxious, judgement normal, mood normal. [] Current Patient Data Vital Signs Vital Signs Date Time Temp Pulse Resp B/P (MAP) Pulse Ox O2 Delivery O2 Flow Rate FiO2 05/19/19 02:32 97.9 79 18 174/84 (114) 100 Room Air 97.9 Lab Values Laboratory Tests Test 05/19/19 02:35 White Blood Count 4.8 x10^3/uL (4.0-11.0) Red Blood Count 4.91 x10^6/uL (4.30-5.70) Hemoglobin 11.1 g/dL (13.0-17.5) L Hematocrit 35.0 % (39.0-53.0) L Mean Corpuscular Volume 71 fL (79-100) L Mean Corpuscular Hemoglobin 23 pg (25-35) L Mean Corpuscular Hemoglobin Concent 32 g/dL (31-37) Red Cell Distribution Width 15.2 % (11.5-14.5) H Platelet Count 106 x10^3/uL (140-400) L Neutrophils (%) (Auto) 45 % (31-73) Lymphocytes (%) (Auto) 39 % (24-48) Monocytes (%) (Auto) 11 % (0-9) H Eosinophils (%) (Auto) 4 % (0-3) H Basophils (%) (Auto) 1 % (0-3) Neutrophils # (Auto) 2.2 x10^3/uL (1.8-7.7) Lymphocytes # (Auto) 1.9 x10^3/uL (1.0-4.8) Monocytes # (Auto) 0.5 x10^3/uL (0.0-1.1) Eosinophils # (Auto) 0.2 x10^3/uL (0.0-0.7) Basophils # (Auto) 0.0 x10^3/uL (0.0-0.2) Platelet Estimate Decreased (ADEQUATE) Polychromasia Slight Hypochromasia Mod Microcytosis Mod Target Cells Occ Sodium Level 136 mmol/L (136-145) Potassium Level 3.9 mmol/L (3.5-5.1) Chloride Level 101 mmol/L (98-107) Carbon Dioxide Level 28 mmol/L (21-32) Anion Gap 7 (6-14) Blood Urea Nitrogen 17 mg/dL (8-26) Creatinine 1.1 mg/dL (0.7-1.3) Estimated GFR (Cockcroft-Gault) 77.7 BUN/Creatinine Ratio 15 (6-20) Glucose Level 107 mg/dL (70-99) H Calcium Level 8.5 mg/dL (8.5-10.1) Total Bilirubin 0.3 mg/dL (0.2-1.0) Aspartate Amino Transferase (AST) 31 U/L (15-37) Alanine Aminotransferase (ALT) 56 U/L (16-63) Alkaline Phosphatase 94 U/L (46-116) Troponin I Quantitative < 0.017 ng/mL (0.000-0.055) Total Protein 7.0 g/dL (6.4-8.2) Albumin 3.6 g/dL (3.4-5.0) Albumin/Globulin Ratio 1.1 (1.0-1.7) Laboratory Tests 05/19/19 02:35 Laboratory Tests 05/19/19 02:35 EKG EKG [EKG: Nonspecific changes] Radiology/Procedures Radiology/Procedures [CXR; reviewed] Course & Med Decision Making Course & Med Decision Making Pertinent Labs and Imaging studies reviewed. (See chart for details) [EKG, lab and imaging reviewed. Ativan given with improvement. Patient resting symptom-free. Hospital admission offered and declined Patient has follow-up appointment scheduled in 4 days with local forming machine adjuster. Return precautions reviewed. Patient verbalizes understanding and agreement discharge instructions prior to departure.] Dragon Disclaimer Dragon Disclaimer This electronic medical record was generated, in whole or in part, using a voice recognition dictation system. Departure Departure Impression: Primary Impression: Chest pain Disposition: 01 HOME, SELF-CARE Condition: STABLE Referrals: FANI GARCIA MD (PCP) Patient Instructions: Chest Pain (Nonspecific), [id number] Additional Instructions: You were evaluated in the emergency department for chest pain. EKG, lab and chest x-ray were performed and are nondiagnostic. The cause of your symptoms has not been determined may be related to her heart. Please take your medications only as prescribed and follow-up with your PCP and forming machine adjuster. JOSE FAULKNER DO May 19, 2019 03:09
[2019-05-19 03:23] LABS: PLT ESTIMATE DECREASED (ADEQUATE)
[2019-05-19 03:25] LABS: HYPOCHROMIA MOD; MICROCYTOSIS MOD; POLYCHROMASIA SLIGHT; TARGET CELLS OCC
[2019-05-19 04:42] VITALS: BP 151/86
--- NOTE | 2019-05-19 05:18 | RAD ---
Chest AP portable at 0257: Reason for examination: Chest pain. Comparison is made to previous exam dated 05/12/2019. The heart size is normal. Mediastinum is unremarkable. Lung campbell are clear. No acute bony abnormalities are seen. Impression: No acute cardiopulmonary disease. Electronically signed by: Marguerite Hoyt MD (05/19/2019 5:15 AM) [id number]
--- NOTE | 2019-05-19 05:41 | EKG ---
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
== END 2019-05-19 04:40 | disposition home or self-care (01) ==
LOC: ER 02:24
DX: R07.89 Other chest pain (principal); R06.00 Dyspnea, unspecified; I10 Essential (primary) hypertension
CPT/HCPCS: 36415; 71045; 80053; 84484; 85025; 93005; 96374; 99285; J2060